=== PATIENT | female | born 1955 | race Caucasian/White ===

== ENCOUNTER → 2021-06-02 14:40 | Outpatient (BNVA) | payer MEDICARE, SELFPAY | PROVIDERS: PCP Internal Medicine; Visit Provider Internal Medicine Cardiovascular Disease | DX: R07.89 Other chest pain (principal) | CPT/HCPCS: 93005; 99202 ==

== ENCOUNTER → 2021-06-04 07:50 | Outpatient (REF) | payer MEDICARE, SELFPAY ==
--- NOTE | 2021-06-04 08:02 | CA_ITS ---
Acquisition Time: 2021-06-04 07:59:06 Total Exercise Time: 00:09:40 Test Indications: Chest Pain Medications: ATORVASTATIN Protocol: MADHAVI Max HR: 153 BPM 98% of Pred: 155 BPM Max BP: 190/080 mmHG Max Work Load: 11.2 METS Exercise stress test with exercise 9 min 40 sec of Madhavi protocol, without anginal symptoms, without arrythmia, with normotensive response to exercise, with EKG changes meeting criteria for ischemia during exercise, peak then improves quickly in recovery. Test reviewed with Dr Bond. Will order a stess echocardiogram for further evaluation. Referred By: Gilmar Clements Overread By: JOSE JUAN LANDON
== END ==
LOC: HO.CARD 07:50
PROVIDERS: PCP Internal Medicine; Visit Provider Internal Medicine Cardiovascular Disease
DX: R94.39 Abnormal result of other cardiovascular function study (principal); R07.89 Other chest pain; E78.5 Hyperlipidemia, unspecified
CPT/HCPCS: 93017

== ENCOUNTER → 2021-06-23 10:42 | Outpatient (REF) | payer MEDICARE, SELFPAY ==
--- NOTE | 2021-06-23 10:46 | CA_ITS ---
Acquisition Time: 2021-06-23 11:00:22 Total Exercise Time: 00:09:40 Test Indications: CAROTID DISEASE Medications: SEE CHART Protocol: MADHAVI Max HR: 193 BPM 124% of Pred: 155 BPM Max BP: 156/080 mmHG Max Work Load: 11.2 METS Exercise stress test with exercise 9 min 40 sec of Madhavi protocol, without anginal symptoms, without arrythmia, with normotensive response to exercise, with EKG changes meeting criteria for ischemia: hortizontal to upsloping ST depression inferiorly and V4-V6 with ST elevation aVR which gradually normalizes in recovery. Echo images obtained by Trendient at rest and immediately post peak exercise. Definity contrast used. Test reviewed with Dr Bond. Referred By: Annalee Brush Overread By: ANNALEE BRUSH
== END ==
LOC: HO.CARD 10:42
PROVIDERS: PCP Internal Medicine; Visit Provider Nurse Practitioner Family
DX: R07.89 Other chest pain (principal); R94.39 Abnormal result of other cardiovascular function study
CPT/HCPCS: 93350; Q9957

== ENCOUNTER 2021-06-27 08:16 | Outpatient (REF) | payer MEDICARE, SELFPAY ==
[2021-06-27 09:43] LABS: C Reactive Protein 0.04 mg/dL (< or = 0.50); Cholesterol 183 mg/dL; HDL Cholesterol 57 mg/dL; LDL Cholesterol Calculated 111 mg/dl; Triglycerides 77 mg/dL
== END 2021-06-27 08:17 | disposition home or self-care (01) ==
LOC: HO.LAB 08:16
PROVIDERS: PCP Internal Medicine; Visit Provider Nurse Practitioner Family
DX: E78.5 Hyperlipidemia, unspecified (principal); R94.39 Abnormal result of other cardiovascular function study
CPT/HCPCS: 36415; 80061; 86140

== ENCOUNTER → 2021-07-08 12:47 | Outpatient (BNVA) | payer MEDICARE, SELFPAY | PROVIDERS: PCP Internal Medicine; Visit Provider Internal Medicine Cardiovascular Disease | DX: I25.10 Atherosclerotic heart disease of native coronary artery without angina pectoris (principal); R07.89 Other chest pain | CPT/HCPCS: 99212 ==

== ENCOUNTER 2021-08-11 12:01 | Day surgery (SDC) | payer MEDICARE, SELFPAY ==
[2021-08-05 14:13] VITALS: BMI 24.7
--- NOTE | 2021-08-07 15:08 | P.CONAN_ITS ---
Documented by User: Gabby Valenzuela NP 08/07/21 15:09 HPI - Anesthesia Eval Consult details Narrative: 65yo F for Upper Endoscopy with Balloon Dilitation Recent cardiac w/u for atypical CP, reassuring testing and cardiac suggests GI w/u FORMERLY [facility], [facility] Active Problems Active Problems: All Active Problems (Updated 08/05/21 @ 14:[address] Slaughter RN) Atypical chest pain (Acute) Hyperlipidemia (Acute) CAD (coronary artery disease) (Acute) Past Medical History Medical History (Updated 08/05/21 @ 14:[address]aughter RN) Abnormal stress ECG with treadmill CAD (coronary artery disease) Elevated cholesterol Family History Family History Father No problems noted. Mother Stroke Brother Carotid stenosis Surgical History Surgical History (Updated 08/05/21 @ 14:[address]aughter RN) H/O colonoscopy Social History Social History Patient Tobacco Use Status: Former Tobacco user Tobacco use type: Cigarette Advance Directives: No Advance Directives Information Provided: Yes Advance Directives on File: No Meds Allergies Allergy/AdvReac Type Severity Reaction Status Date / Time No Known Allergies Allergy Verified 06/02/21 14:52 Home Medications Medication Instructions Recorded Confirmed Last Taken Type cholecalciferol (vitamin D3) 25 25 mcg PO DAILY 06/02/21 08/05/21 Unknown History mcg (1,000 unit) capsule zinc 50 mg tablet 50 mg PO DAILY 06/02/21 08/05/21 Unknown History Exam Exam Date and Time: August 07, 2021 1508 Height,Weight and Vital Signs: Height 5 ft 8 in Weight 73.8 kg Narrative Narrative: Stress Echo 06/2021 Protocol: PACHECO ? Max HR: 193 BPM? 124% of? Pred: 155 BPM Max BP: 156/080 mmHG Max Work Load: 11.2 METS ? Exercise stress test with exercise 9 min 40 sec of Pacheco protocol, without ?anginal symptoms, without arrythmia, with normotensive response to exercise, ?with EKG changes meeting criteria for ischemia: hortizontal to upsloping ST ?depression inferiorly and V4-V6 with ST elevation aVR which gradually ?normalizes in recovery. Echo images obtained by tech at rest and immediately ?post peak exercise. Definity contrast used. Test reviewed with Dr Bond. Exercise stress echocardiogram was reviewed. At rest, there is normal LVEF and wall motion. With peak exercise, there is ? appropriate augmentation of wall thickening and contractility. There is normal decrease in end-systolic volumes. Overall,? normal study.? EKG changes could be non-specific.? Assessment and Plan Assessment Anesthesia Assessment: Chart Reviewed Documented by User: Nicole Coelho MD 08/11/21 13:54 [facility] Past Medical History Medical History (Updated 08/05/21 @ 14:[address] RN) Abnormal stress ECG with treadmill CAD (coronary artery disease) Elevated cholesterol Family History Family History Father No problems noted. Mother Stroke Brother Carotid stenosis Family history of problems with anesthesia: No Surgical History Surgical History (Updated 08/05/21 @ 14:[address] RN) H/O colonoscopy History of Problems with Anesthesia: No Social History Social History Patient Tobacco Use Status: Former Tobacco user Tobacco use type: Cigarette Advance Directives: No Advance Directives Information Provided: Yes Advance Directives on File: No Meds Allergies Allergy/AdvReac Type Severity Reaction Status Date / Time No Known Allergies Allergy Verified 06/02/21 14:52 Home Medications Medication Instructions Recorded Confirmed Last Taken Type cholecalciferol (vitamin D3) 25 25 mcg PO DAILY 06/02/21 08/05/21 Unknown History mcg (1,000 unit) capsule zinc 50 mg tablet 50 mg PO DAILY 06/02/21 08/05/21 Unknown History Exam Airway Mallampati Class: II TM Dist: >3cm Neck ROM: Full Assessment and Plan Assessment Anesthesia Assessment: Anesthesia Plan Discussed Final Anesthetic Review Family History of Problems with Anesthesia: No History of Problems with Anesthesia: No NPO: Yes ASA Class: II Final Preanesthetic Review: No Changes in Pt Med Stat, Meds/Allgs Chart Reviewed, Consent Obtained/Reviewed and Anes Risks/Benef Reviewed Patient Risk: Intermediate Procedure Risk: Low Anesthetic Plan Anesthetic Plan: MAC: Disposition: Standard PACU
[2021-08-11 13:15] VITALS: BP 143/69; PULSE 48; RESP 18; TEMP 37.3; O2SAT 100
[2021-08-11] MEDS: Lactated Ringers 1,000 ML 100 ML IVCONT (13:27)
[2021-08-11 15:46] VITALS: BP 114/70; PULSE 68; RESP 14; TEMP 36.6; O2SAT 97
--- NOTE | 2021-08-11 15:48 | PM.OP ---
Brief Operative Note Date of Service: 08/11/21 Pre-op diagnosis: Dysphagia Post-op diagnosis: other (R/O EOE, Hiatal hernia) Procedure: EGD with biopsies Surgeon: Dieudonne Méndez Anesthesia: MAC Was an Mold Maker Plastic Molds used for this Procedure?: No Estimated blood loss (mL): 2.0 Pathology: other (A. EG Junction at 36cm B. Esophagus at 25cm) Condition: stable Disposition: PACU
[2021-08-11 16:01] VITALS: BP 130/77; PULSE 57; RESP 16; TEMP 36.6; O2SAT 99
--- NOTE | 2021-08-12 02:12 | OP_ITS ---
SURGEON: Dieudonne Méndez MD INDICATIONS: The patient presents for evaluation of dysphagia and chest discomfort. Full consent has been obtained from her for this, including risks of bleeding and perforation. PREOPERATIVE DIAGNOSIS: POSTOPERATIVE DIAGNOSIS: PROCEDURE PERFORMED: Esophagogastroduodenoscopy with biopsies. ESTIMATED BLOOD LOSS: COMPLICATIONS: ANESTHESIA: Medication used, monitored anesthesia care. ASSISTANTS: SPECIMENS: PREOPERATIVE DIAGNOSES: Dysphagia and chest discomfort. POSTOPERATIVE DIAGNOSES: Dysphagia and chest discomfort, hiatal hernia, rule out eosinophilic esophagitis, rule out Devries esophagus. DESCRIPTION OF PROCEDURE: The patient was placed in the left lateral decubitus position the Olympus video gastroscope was passed in the posterior oropharynx and upper esophagus under direct vision. The scope was passed slowly into the distal esophagus. The gastroesophageal junction appeared at 36 cm. There was some slight irregularity consistent with possible Devries mucosa, but there was no evidence of any esophagitis. There was no stricture, nor mass. The scope entered into the stomach. There was a small hiatal hernia with the diaphragmatic indentation seen at approximately 38 cm. The hiatal hernia mucosa appeared normal. The scope was advanced to the pylorus and the duodenum was cannulated in the descending portion. The duodenum including the bulb appeared normal without mass or ulceration. The scope was withdrawn back to the stomach. The gastric antrum and body appeared normal. There was good peristalsis. The scope was retroflexed visualizing the proximal stomach carefully, which appeared normal, without any sign of mass or ulceration. The scope was straightened and withdrawn back to the esophagus. Biopsies were obtained at the EG junction at 36 cm. There was no evidence of any stricture nor ring, and therefore dilation was not performed. The esophageal mucosa otherwise appeared normal. The proximal esophagus appeared normal as well, without any sign of proximal esophageal rings. Biopsies were obtained at 25 cm as well. The scope was withdrawn from the patient. She tolerated the procedure well and was returned to the recovery area in stable condition. IMPRESSION: 1. Hiatal hernia, gastroesophageal reflux, rule out Devries esophagus. 2. Rule out eosinophilic esophagitis. PLAN: The results of the biopsies will be checked. At this point, she reports that she is doing well from a GI standpoint. She is not having much in the way of any heartburn nor dysphagia. As such, I would continue to observe this and await the results of the biopsies. If that happens to be evidence of Devries esophagus without dysplasia, we could then repeat an endoscopy in 3 years for surveillance. If she remains otherwise asymptomatic, then I do not think she needs to be on a PPI. MD HERNANDEZ Vargas/KAMILLE / [phone]
== END 2021-08-11 16:26 | disposition home or self-care (01) ==
PROVIDERS: Visit Provider Internal Medicine
PROC: (CPT 43239; principal; 2021-08-11 13:20)
DX: R13.19 Other dysphagia (principal); R07.89 Other chest pain; K21.9 Gastro-esophageal reflux disease without esophagitis; K44.9 Diaphragmatic hernia without obstruction or gangrene; I25.10 Atherosclerotic heart disease of native coronary artery without angina pectoris; E78.5 Hyperlipidemia, unspecified; Z79.82 Long term (current) use of aspirin; Z79.899 Other long term (current) drug therapy; Z87.891 Personal history of nicotine dependence
CPT/HCPCS: 43239; 88305; J2250

== ENCOUNTER 2021-11-07 07:36 | Outpatient (REF) | payer MEDICARE, SELFPAY ==
[2021-11-07 09:09] LABS: Cholesterol 175 mg/dL; HDL Cholesterol 50 mg/dL; LDL Cholesterol Calculated 105 mg/dl; Triglycerides 100 mg/dL
== END 2021-11-07 07:37 | disposition home or self-care (01) ==
LOC: HO.LAB 07:36
PROVIDERS: PCP Internal Medicine; Visit Provider Internal Medicine Cardiovascular Disease
DX: I25.10 Atherosclerotic heart disease of native coronary artery without angina pectoris (principal)
CPT/HCPCS: 36415; 80061

== ENCOUNTER 2022-02-26 08:14 | Outpatient (REF) | payer MEDICARE, SELFPAY ==
[2022-02-26 09:52] LABS: Cholesterol 132 mg/dL; HDL Cholesterol 55 mg/dL; LDL Cholesterol Calculated 69 mg/dl; Triglycerides 43 mg/dL
== END 2022-02-26 08:15 | disposition home or self-care (01) ==
LOC: HO.LAB 08:14
PROVIDERS: PCP Internal Medicine; Visit Provider Nurse Practitioner Family
DX: E78.5 Hyperlipidemia, unspecified (principal); I25.10 Atherosclerotic heart disease of native coronary artery without angina pectoris
CPT/HCPCS: 36415; 80061

== ENCOUNTER → 2022-07-09 08:17 | Outpatient (BNVA) | payer MEDICARE, SELFPAY | PROVIDERS: PCP Internal Medicine; Referring Provider Internal Medicine; Visit Provider Internal Medicine Cardiovascular Disease | DX: I25.10 Atherosclerotic heart disease of native coronary artery without angina pectoris (principal) | CPT/HCPCS: 93005; 99212 ==

== ENCOUNTER 2022-09-25 09:46 | Outpatient (REF) | payer MEDICARE, SELFPAY ==
--- NOTE | ~2022-09-25 | XR_ITS ---
EXAMINATION: XR SHOULDER, LEFT CLINICAL INFORMATION: Pain COMPARISON: None available. TECHNIQUE: AP external rotation, Grashey, scapular Y, and axillary views of the left shoulder. FINDINGS: Bone alignment is normal. No fracture or dislocation. The glenohumeral joint is normal. There is arthritis at the acromioclavicular joint. Soft tissues are normal. XR/XR shoulder LT min 2V IMPRESSION: Arthritis at the acromioclavicular joint.
== END 2022-09-25 09:47 | disposition home or self-care (01) ==
LOC: HO.XRAY 09:46
PROVIDERS: PCP Internal Medicine; Visit Provider Internal Medicine
DX: M25.512 Pain in left shoulder (principal)
CPT/HCPCS: 73030

== ENCOUNTER 2023-05-21 08:43 | Outpatient (REF) | payer MEDICARE, SELFPAY ==
[2023-05-21 08:53] LABS: MANUAL DIFF FLAG NO
[2023-05-21 09:34] LABS: Basophils Percent Auto 0.4 % (0-2); Eosinophils Percent Auto 0.8 % (0-4); Hematocrit 40.3 % (37.0-47.0); Hemoglobin 13.1 g/dl (12.0-16.0); Lymphocytes Absolute Auto 1.5 X10*3/uL (1.2-4.9); Mean Corpuscular HGB Conc 32.5 g/dl (31.0-35.0); Mean Corpuscular Hemoglobin 30.3 pg (27.0-33.0); Mean Corpuscular Volume 93.3 fL (80.0-98.0); Mean Platelet Volume 9.7 fL (9.4-12.3); Monocytes Absolute Auto 0.6 X10*3/uL (0.1-1.2); Monocytes Percent Auto 12.3 % (2-11); Neutrophils Absolute Auto 2.6 x10*3/uL (2.0-8.3); Neutrophils Percent Auto 54.5 % (45-73); Platelet Count 234 X10*3/uL (160-400); Red Blood Count 4.32 X10*6/uL (4.20-5.50); Red Cell Distribution Width 12.4 % (11.0-16.0); White Blood Count 4.7 X10*3/uL (4.8-10.8)
[2023-05-21 10:16] LABS: Alanine Aminotransferase 22 U/L (0-31); Albumin Level 4.2 g/dL (3.5-5.0); Alkaline Phosphatase 56 U/L (39-117); Anion Gap 12 (12-20); Aspartate Amino Transferase 23 U/L (5-31); Bilirubin Total 0.7 mg/dL (0.0-1.0); Blood Urea Nitrogen 17 mg/dL (9-16); Calcium 9.7 mg/dL (8.4-10.2); Carbon Dioxide 29 mmol/L (22-29); Chloride 108 mmol/L (96-108); Cholesterol 144 mg/dL (<200); Estimated Glomerular Filt Rate > 60; Glucose Fasting 95 mg/dL (60-99); HDL Cholesterol 63 mg/dL (>40); Iron 112 mcg/dL (30-160); LDL Cholesterol Calculated 68 mg/dL (<100); Percent Iron Saturation 35 % (15-50); Potassium 4.1 mmol/L (3.3-5.1); Sodium 145 mmol/L (135-145); Total Iron Binding Capacity 318 mcg/dL (228-428); Total Protein 7.4 g/dL (6.5-8.0); Triglycerides 65 mg/dL (<150); Unsaturated Iron Binding 206 ug/dL
[2023-05-21 10:21] LABS: Ferritin 59 ng/mL (10-250); Thyroid Stimulating Hormone 1.51 uIU/mL (0.32-4.0)
== END 2023-05-21 08:44 | disposition home or self-care (01) ==
LOC: HO.LAB 08:43
PROVIDERS: PCP Internal Medicine; Visit Provider Internal Medicine
DX: E78.00 Pure hypercholesterolemia, unspecified (principal)
CPT/HCPCS: 36415; 80053; 80061; 82306; 82728; 83540; 84443; 85025

== ENCOUNTER 2023-07-15 08:29 | Outpatient (AMB) | payer MEDICARE, SELFPAY ==
--- NOTE | 2023-07-15 08:31 | A.OFFVIS_ITS ---
Intake Vital Signs 07/15/23 08:32 Height 5 ft 8 in Weight 169 lb 12.095 oz BMI 25.8 BP 130/78 Blood Pressure Location Lt brachial Position Sitting Intake Visit Reasons: 1 yr f/up Intake Note: 1 year follow up Allergies No Known Allergies Allergy (Verified 07/09/22 08:30) Medication List - Last Reconciled 07/15/23 by Gilmar Clements MD aspirin (Children's Aspirin) 81 mg PO DAILY atorvastatin 40 mg PO DAILY cholecalciferol (vitamin D3) 25 mcg PO DAILY ezetimibe 10 mg PO DAILY zinc 50 mg PO DAILY HPI HPI Comments History of Present Illness Details Mer comes for follow-up. She has no new cardiac symptoms. She is still hiking up to 6 miles and has no issues. Continues to remain very active. Denies exertional chest pain or shortness of breath. Intermittently gets hemicranial headaches which are not severe. She has no diagnosis about the same. She also gets left neck muscle spasm although not with exertion. Takes all her medications. Last LDL at 67 mg/dL. No prolonged palpitation irregular heartbeat. [facility] Medical History Elevated cholesterol CAD (coronary artery disease) Abnormal stress ECG with treadmill Surgical History H/O colonoscopy Family History Father No problems noted. Mother Stroke Brother Carotid stenosis Social History Alcohol intake: current Alcohol intake frequency: a few times a week Patient Tobacco Use Status: Former Tobacco user Quit Date: 1984 Years Smoked: 8 +/- Review of Systems Const Denies chills, Denies fatigue, Denies fever(s), Denies frequent falls, Denies weakness, Denies weight gain and Denies weight loss ENT Denies dizziness Card Denies chest pain, Denies chest pain with activity, Denies syncope, Denies rapid heart rate, Denies pedal edema, Denies edema, Denies leg edema, Denies lightheadedness, Denies palpitations, Denies dyspnea, Denies dyspnea on exertion, Denies orthopnea and Denies other (loss of consciousness) Resp Denies cough, Denies dyspnea and Denies dyspnea on exertion GI Denies hematochezia and Denies change in stool character Musc Denies abnormal gait, Denies muscle cramps, Denies muscle weakness, Denies numbness, Denies radiating pain into limb and Denies tingling Neuro Denies Abnormal speech present, Denies abnormal gait, Denies dizziness, Denies syncope, Denies frequent falls, Denies numbness, Denies tingling and Denies weakness Endo Denies fatigue and Denies palpitations Physical Exam Vital Signs: Last Vital Signs BP 130/78 07/15/23 08:32 BMI result Body Mass Index 25.8 Const General: cooperative, comfortable, no acute distress, well developed, alert, awake, Physically active and well groomed Nutritional Appearance: average body habitus Orientation/consciousness: patient oriented x3 Limitations: no limitations Neck Neck: Yes trachea midline, Yes supple and Yes no JVD Carotids: no bruits Chest Chest palpation & inspection: normal inspection of the chest Resp Effort & Inspection: normal respiratory effort Auscultation: clear to auscultation bilaterally Cardio Jugular venous distension: no JVD Palpation: normal PMI Rate: regular rate Rhythm: regular rhythm Heart sounds: S1 normal heart sound present, S2 normal heart sound present, no click, no gallops and no murmurs GI Auscultation: normal bowel sounds Skin General skin exam: no rashes or lesions noted Neuro General: patient oriented x3 and no focal motor deficits Speech: No Abnormal speech present Extrem General: Yes no clubbing, cyanosis or edema Office Procedures EKG Details: EKG shows sinus bradycardia with low-voltage QRS with nonspecific ST changes otherwise normal EKG [id number], Complete Assessment & Plan Assessment & Plan (1) CAD (coronary artery disease): Comment: High calcium score, predominantly all in LAD territory Code(s): I25.10 - Atherosclerotic heart disease of nez perce coronary artery without angina pectoris Plan: Coronary artery disease with no concerning symptoms at high level of activity. Continue aggressive medical therapy. Agree with low-dose aspirin therapy. Continue high-intensity statin therapy with ezetimibe with well optimized LDL. Advised to call me with any exertional symptoms at mount need further workup. Will follow with exercise myocardial perfusion imaging next year to assess for asymptomatic myocardial ischemia. She understands and agrees. Will follow up in the clinic in 1 year's time, sooner p.r.n.. Thank you for allowing me to partake in the care Coding Level of Care Code Est Pt Level 3 (31838) Diagnoses CAD (coronary artery disease) I25.10 CPT Codes EKG - CPT: 00018-[id number], Complete ([id number])
[2023-07-15 08:32] VITALS: BP 130/78; BMI 25.8
== END 2023-07-15 09:24 | disposition home or self-care (01) ==
PROVIDERS: Visit Provider Internal Medicine Cardiovascular Disease
DX: I25.10 Atherosclerotic heart disease of native coronary artery without angina pectoris (principal)
CPT/HCPCS: 93010; 99213

== ENCOUNTER → 2023-07-15 08:29 | Outpatient (BNVA) | payer MEDICARE, SELFPAY | PROVIDERS: Visit Provider Internal Medicine Cardiovascular Disease | DX: I25.10 Atherosclerotic heart disease of native coronary artery without angina pectoris (principal) | CPT/HCPCS: 93005; 99212 ==

== ENCOUNTER 2023-12-06 06:21 | Day surgery (SDC) | payer MEDICARE, SELFPAY ==
[2023-12-02 14:16] VITALS: BMI 24.2
[2023-12-06 06:46] VITALS: BMI 23.6
[2023-12-06 06:53] VITALS: BP 127/70; PULSE 57; RESP 16; TEMP 36.4; O2SAT 96
[2023-12-06] MEDS: Lactated Ringers 1,000 ML 50 ML IVCONT (07:07)
--- NOTE | 2023-12-06 07:16 | HO.ANESPROP2 ---
[facility] Active Problems Active Problems: All Active Problems Hyperlipidemia (Acute) Atypical chest pain (Acute) CAD (coronary artery disease) (Acute) Past Medical History Medical History Urinary incontinence Elevated cholesterol CAD (coronary artery disease) Abnormal stress ECG with treadmill Family History Family History Father No problems noted. Mother Stroke Brother Carotid stenosis Family history of problems with anesthesia: No Surgical History Surgical History History of esophagogastroduodenoscopy (EGD) H/O colonoscopy History of Problems with Anesthesia: No Social History Social History Alcohol intake: current Alcohol intake frequency: a few times a week Patient Tobacco Use Status: Former Tobacco user Years Smoked: 8 +/- Use of substances other than those prescribed or required for medical reasons: Yes Substance Use Type Other:: marijuana gummie occasionally Are you DNR?: No Advance Directives: No Advance Directives Information Provided: Yes Meds Allergies Allergy/AdvReac Type Severity Reaction Status Date / Time No Known Allergies Allergy Verified 07/09/22 08:30 Active Medications: Current Medications Lactated Ringer's (Lr) 1,000 mls @ 50 mls/hr IVCONT .Q20H JASWINDER Last Admin: 12/06/23 07:07 Dose: 50 mls/hr Sodium Biphosphate/Sodium Phosphate (Sodium Phosphate,Chester-Dibasic 133 Ml Enema) 133 ml CA ONCE PRN PRN Reason: Poor Colonoscopy Prep Results Home Medications ?Medication ?Instructions ?Recorded ?Confirmed ?Last Taken ?Type cholecalciferol (vitamin D3) 25 25 mcg PO DAILY 06/02/21 12/02/23 Unknown History mcg (1,000 unit) capsule zinc 50 mg tablet 50 mg PO DAILY 06/02/21 12/02/23 Unknown History aspirin 81 mg chewable tablet 81 mg PO DAILY 07/15/23 12/02/23 Unknown History (Children's Aspirin) simvastatin 40 mg tablet 40 mg PO BEDTIME 12/02/23 12/02/23 Unknown History Exam Height,Weight and Vital Signs: Height 5 ft 8.75 in Weight 71.838 kg Last Vital Signs Temp 97.6 F 12/06/23 06:53 Pulse 57 12/06/23 06:53 Resp 16 12/06/23 06:53 BP 127/70 12/06/23 06:53 Pulse Ox 96 12/06/23 06:53 O2 Del Method Room Air 12/06/23 06:53 Airway Mallampati Class: III TM Dist: >3cm Neck ROM: Full Loose/Missing/Broken Teeth: No Heart: RRR Lungs: CTA Assessment and Plan Assessment Anesthesia Assessment: Anesthesia Plan Discussed and Chart Reviewed Final Anesthetic Review Family History of Problems with Anesthesia: No History of Problems with Anesthesia: No NPO: Yes ASA Class: III Final Preanesthetic Review: Meds/Allgs Chart Reviewed, Consent Obtained/Reviewed and Anes Risks/Benef Reviewed Patient Risk: Intermediate Procedure Risk: Low Anesthetic Plan Anesthetic Plan: MAC: Disposition: Standard PACU
--- NOTE | 2023-12-06 07:36 | PC.NURSE ---
Dr Méndez at bedside, 24hr update documented on paper.
[2023-12-06 08:25] VITALS: BP 134/76; PULSE 57; RESP 18; TEMP 35.9; O2SAT 100
--- NOTE | 2023-12-06 08:29 | PM.OP ---
Brief Operative Note Date of Service: 12/06/23 Pre-op diagnosis: Screening Post-op diagnosis: other (Diverticulosis) Procedure: Colonoscopy to the cecum Surgeon: Dieudonne Méndez MD Anesthesia: MAC Was an General Practitioner used for this Procedure?: No Estimated blood loss (mL): 0 Pathology: none sent Condition: stable Disposition: PACU
[2023-12-06 08:49] VITALS: BP 110/77; PULSE 57; RESP 18; TEMP 36.2; O2SAT 100
--- NOTE | 2023-12-06 10:48 | OP_ITS ---
DATE OF SERVICE: 12/06/2023 SURGEON: Dieudonne Méndez MD INDICATIONS: The patient presents for evaluation of colorectal cancer screening and personal history of tubular adenoma of the colon. Full consent has been obtained from her for this, including risks of bleeding and perforation. PREOPERATIVE DIAGNOSIS: POSTOPERATIVE DIAGNOSIS: PROCEDURE PERFORMED: Colonoscopy to cecum. ESTIMATED BLOOD LOSS: COMPLICATIONS: ANESTHESIA: Medication used, monitored anesthesia care. ASSISTANTS: SPECIMENS: PREOPERATIVE DIAGNOSES: Colorectal cancer screening and personal history of tubular adenoma of the colon. POSTOPERATIVE DIAGNOSES: Colorectal cancer screening and personal history of tubular adenoma of the colon, diverticulosis, internal hemorrhoids. DESCRIPTION OF PROCEDURE: The patient was placed in left lateral decubitus position. The digital rectal exam revealed no abnormalities. The Olympus video pediatric colonoscope was entered into the rectum and advanced easily to the cecum. Once in the cecum, I did identify normal-appearing cecal pouch with appendiceal orifice and a normal-appearing ileocecal valve. There was transillumination of light deep in the right lower quadrant. The entire cecum and ileocecal valve appeared normal. The scope was then slowly withdrawn assessing all mucosal surfaces carefully. Preparation was excellent. I did not visualize any sign of polyps, colitis, nor angiodysplasia. There was a mild amount of sigmoid diverticulosis. In the rectum, scope was retroflexed visualizing some small internal hemorrhoids, but no other pathology. The rectal mucosa appeared normal. Scope was straightened and withdrawn the patient. She tolerated the procedure well and was returned to the recovery area in stable condition. IMPRESSION: 1. Diverticulosis. 2. Internal hemorrhoids. PLAN: I would recommend a repeat colonoscopy in 5 years for further screening. She will otherwise see me on a p.r.n. basis. She was advised to continue her stool softeners to help with her constipation. MD HERNANDEZ Vargas/KAMILLE / [phone]
== END 2023-12-06 09:34 | disposition home or self-care (01) ==
PROVIDERS: PCP Internal Medicine; Visit Provider Internal Medicine
PROC: 0DJD8ZZ Inspection of Lower Intestinal Tract, Via Natural or Artificial Opening Endoscopic (ICD-10-PCS; CPT 45378; principal; 2023-12-06 07:30)
DX: Z12.11 Encounter for screening for malignant neoplasm of colon (principal); Z86.010 Personal history of colon polyps; K57.30 Diverticulosis of large intestine without perforation or abscess without bleeding; K64.8 Other hemorrhoids; E78.5 Hyperlipidemia, unspecified; N39.498 Other specified urinary incontinence; Z79.82 Long term (current) use of aspirin; Z79.899 Other long term (current) drug therapy; Z87.891 Personal history of nicotine dependence
CPT/HCPCS: G0105; J2704

== ENCOUNTER 2024-02-10 08:45 | Outpatient (REF) | payer MEDICARE, SELFPAY ==
[2024-02-10 09:54] LABS: Syphilis Screen Nonreactive (Nonreactive)
[2024-02-10 09:55] LABS: HIV AB/AG Nonreactive (Nonreactive); HIV Num 1 0.05 S/CO (0.00-0.99)
[2024-02-11 09:04] LABS: Lyme Abs Screen <0.90 index
[2024-02-15 11:14] LABS: Anti Nuclear Antibody Pattern Nuclear, Homogeneous; Anti Nuclear Antibody Screen POSITIVE (NEGATIVE)
== END 2024-02-10 08:46 | disposition home or self-care (01) ==
LOC: HO.LAB 08:45
PROVIDERS: PCP Internal Medicine; Visit Provider Psychiatry & Neurology Neurology
DX: G43.009 Migraine without aura, not intractable, without status migrainosus (principal)
CPT/HCPCS: 86038; 86039; 86335; 86617; 86618; 86780; 87389

== ENCOUNTER 2024-03-21 07:45 | Outpatient (REF) | payer MEDICARE, SELFPAY ==
--- NOTE | ~2024-03-21 | MR_ITS ---
EXAMINATION: MR BRAIN WITHOUT CONTRAST CLINICAL INFORMATION: New onset of headache. COMPARISON: None available. TECHNIQUE: MRI of the brain was obtained using routine sequences without contrast. FINDINGS: There is a flow-void signal abnormality in the left cerebellopontine angle cistern/left anterior inferior cerebellar artery region with a phase encoding artifact and deformity of the left ventral ihsan/medulla oblongata junction. No restricted diffusion. No acute intracranial hemorrhage, midline shift, hydrocephalus or herniation. Bilateral multifocal patchy and punctate deep periventricular white matter hyperintense T2 FLAIR signal involving centrum semiovale and crump radiata. Sellar/suprasellar region demonstrated no signal abnormality. Craniocervical junction is intact and normal. 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 Recommend MRA brain versus CT angiogram brain. Small vessel occlusive disease. No acute hemorrhage or acute brain abnormality. Electronically signed by: Boaz Coles MD 03/21/2024 10:34 AM BILL
== END 2024-03-21 07:46 | disposition home or self-care (01) ==
LOC: HO.MRI 07:45
PROVIDERS: PCP Internal Medicine; Visit Provider Psychiatry & Neurology Neurology
DX: G44.52 New daily persistent headache (NDPH) (principal)
CPT/HCPCS: 70551

== ENCOUNTER → 2024-03-21 07:56 | Outpatient (BNV) | payer MEDICARE, SELFPAY | PROVIDERS: PCP Internal Medicine; Visit Provider Radiology Diagnostic Radiology | DX: R51.9 Headache, unspecified (principal) | CPT/HCPCS: 70551 ==

== ENCOUNTER 2024-03-30 12:52 | Outpatient (REF) | payer MEDICARE, SELFPAY ==
--- NOTE | ~2024-03-30 | CT_ITS ---
EXAMINATION: CT ANGIOGRAM BRAIN, HEAD CLINICAL INFORMATION: New onset of headache. Concerning cerebral aneurysm. COMPARISON: Correlated to MRI dated March 21, 2024 suggesting a left cerebellopontine angle cistern/anterior inferior cerebellar artery region aneurysm. TECHNIQUE: Test bolus sequences followed by intravenous administration of 75 mL of Omnipaque 350 intravenous contrast without reported immediate complications. Helical imaging was performed in the axial plane from the skull base to the vertex. Delayed postcontrast imaging of the head was also performed. The data was processed at the nanotechnologist workstation for generation of MIP sequences. Three-dimensional volume rendered reformatted images were also generated at an offline 3-D workstation. The degree of stenosis determined by NASCET criteria. This CT examination was performed using dose optimization techniques as appropriate, variously including the following: *Automated exposure control *Adjustment of mA and/or kV according to patient size (this includes techniques or standardized protocols for targeted exams where dose is matched to indication/reason for exam; i.e. extremities or head) *Use of iterative reconstruction technique DLP: 2447 mGy-cm FINDINGS: Anterior cerebral circulation: ICAs: Normal patency. Calcified plaques in the cavernous/supraclinoid segments. No high degree stenosis. No vascular abnormality. ACAs: Normal patency. Left A1 segment: Hypoplastic. No focal stenosis. No abrupt cut off. Anterior communicant artery is patent. MCA's: Normal patency. No focal stenosis. No abrupt cut off. No vascular abnormality. Bifurcation/trifurcation demonstrated normal patency without vascular irregularity. Ophthalmic arteries are patent without gross vascular irregularity. I do not see enhancement of the posterior communicating arteries. Posterior cerebral circulation: V3/V4 segments, Right vertebral artery is small in caliber and appears to endon the right PICA. Left vertebral artery is dominant. Calcified plaque. Normal patency. There is a 12 mm maximum length lobulated IV contrast enhanced vascular abnormality with a 8 mm neck and a punctate calcification, at the left PICA/AICA origin. Basilar artery has a tortuosity. Normal patency. No focal stenosis. No intimal flap. Superior cerebellar arteries are patent. Basilar artery tip demonstrates no vascular irregularity. dog or horse racing official: Normal patency. Decreased caliber at the right P3 segment. No abrupt cut off. Left CCA demonstrates normal caliber and enhancement pattern. Ancillary findings: No acute intracranial hemorrhage, mass effect midline shift, hydrocephalus or herniation. Multifocal patchy and punctate deep periventricular white matter hypodensities in the supratentorial compartment. Mucosal thickening in the right ethmoid air cells. Tympanic cavities and mastoid cells are aerated. 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 Atherosclerosis disease right AZURE ARCHITECT/P3 segment. Electronically signed by: Boaz Coles MD 03/31/2024 08:19 AM EST
[2024-03-30] MEDS: iohexoL 350 MG/ML 75 ML INFUS..BTL IV (14:54)
[2024-03-31 11:51] LABS: Creatinine POC 0.8 mg/dL (0.5-1.4); GFR POC > 60
== END 2024-03-30 12:53 | disposition home or self-care (01) ==
LOC: HO.CT 12:52
PROVIDERS: PCP Internal Medicine; Visit Provider Psychiatry & Neurology Neurology
DX: R51.9 Headache, unspecified (principal)
CPT/HCPCS: 70496; 82565; Q9967

== ENCOUNTER → 2024-03-30 12:56 | Outpatient (BNV) | payer MEDICARE, SELFPAY | PROVIDERS: PCP Internal Medicine; Visit Provider Radiology Diagnostic Radiology | DX: R51.9 Headache, unspecified (principal) | CPT/HCPCS: 70496 ==

== ENCOUNTER 2024-07-17 10:02 | Outpatient (AMB) | payer MEDICARE, SELFPAY ==
--- NOTE | 2024-07-17 10:03 | MHC.PC.OV ---
Vital Signs 07/17/24 10:06 Height 5 ft 7.25 in Weight 161 lb BMI 25.0 BP 118/54 L Pulse 62 Pulse Source Pulse Oximeter Temp 97.1 F Pulse Oximetry (%) 96 Intake Visit Reasons: Aneurysm Intake Note: no other issues Allergies No Known Allergies Allergy (Verified 07/17/24 10:39) Medication List - Last Reconciled 07/17/24 by Lester Osuna MD atorvastatin 40 mg PO DAILY tgwpxidzks-tnrpsixxplaua-apuo 50-300-40 mg 1 cap PO Q4H PRN cholecalciferol (vitamin D3) 25 mcg PO DAILY ezetimibe 10 mg PO DAILY zinc 50 mg PO DAILY PFSH Medical History Cerebral aneurysm Urinary incontinence Elevated cholesterol CAD (coronary artery disease) Abnormal stress ECG with treadmill Surgical History History of esophagogastroduodenoscopy (EGD) H/O colonoscopy Family History Father No problems noted. Mother Stroke Brother Carotid stenosis Social History Alcohol intake: current Alcohol intake frequency: a few times a week Patient Tobacco Use Status: Former Tobacco user Years Smoked: 8 +/- Physical exam (Primary Care) Vital Signs: Last Vital Signs Temp 97.1 F 07/17/24 10:06 Pulse 62 07/17/24 10:06 BP 118/54 L 07/17/24 10:06 Pulse Ox 96 07/17/24 10:06 BMI result Body Mass Index 25.0 Tobacco/Smoking Status: Tobacco use Status Patient Tobacco Use Status Former Tobacco user 07/17/24 10:09 Tobacco use type 05/03/24 10:01 Coding Level of Care Code New Pt Level 4 (22842) Complex EM visit Add On G2211 Diagnoses Hyperlipidemia E78.5 CAD (coronary artery disease) I25.10 Cerebral aneurysm I67.1 Assessment & Plan Assessment & Plan (1) Hyperlipidemia: Code(s): E78.5 - Hyperlipidemia, unspecified Category: Medical Plan: Blood work ordered. Continue current medications. Will call with the results (2) CAD (coronary artery disease): Comment: High calcium score, predominantly all in LAD territory Code(s): I25.10 - Atherosclerotic heart disease of [place] coronary artery without angina pectoris Category: Medical Plan: Patient sees a receiving operator. (3) Cerebral aneurysm: Code(s): I67.1 - Cerebral aneurysm, nonruptured Category: Medical Plan: Note from the surgeon hi. Pt has an upcoming cerebral angiogram. 12 mm lobulated and 8 mm broad-based neck cerebral aneurysm, left PICA/AICA origin. This was reported in the last CTA. BW and EKG prior. Which has been ordered. Orders: Orders Basic Metabolic Panel Today E78.5 - Hyperlipidemia, unspecified, I25.10 - Atherosclerotic heart disease of [place] coronary artery without angina pectoris, I67.1 - Cerebral aneurysm, nonruptured Complete Blood Count no Diff Today E78.5 - Hyperlipidemia, unspecified, I25.10 - Atherosclerotic heart disease of [place] coronary artery without angina pectoris, I67.1 - Cerebral aneurysm, nonruptured Lipid Panel Today E78.5 - Hyperlipidemia, unspecified, I25.10 - Atherosclerotic heart disease of [place] coronary artery without angina pectoris, I67.1 - Cerebral aneurysm, nonruptured Liver Panel Today E78.5 - Hyperlipidemia, unspecified, I25.10 - Atherosclerotic heart disease of [place] coronary artery without angina pectoris, I67.1 - Cerebral aneurysm, nonruptured Thyroid Stimulating Hormone Today E78.5 - Hyperlipidemia, unspecified, I25.10 - Atherosclerotic heart disease of [place] coronary artery without angina pectoris, I67.1 - Cerebral aneurysm, nonruptured UA and rflx microscopic Today E78.5 - Hyperlipidemia, unspecified, I25.10 - Atherosclerotic heart disease of [place] coronary artery without angina pectoris, I67.1 - Cerebral aneurysm, nonruptured ECG 12 lead EKG Today I25.10 - Atherosclerotic heart disease of [place] coronary artery without angina pectoris
[2024-07-17 10:06] VITALS: BP 118/54; PULSE 62; TEMP 36.2; O2SAT 96; BMI 25.0
--- OUTSIDE RECORDS SUMMARY | 2024-07-17 11:25 | XMS_ITS | Encounter Summary ---
Author Organization [facility] [place] [facility] Address [address] [place] [address] Care Team Providers Care Funeral Limousine Driver Name Role Phone Cristobal Pereira MD Unavailable [phone] Lester Osuna MD Primary Care Provider Shanna vailable Reason for Visit * Reason Comments Consult Headaches Cramping o n the left side of the neck * Neurosurgery (Routine) - Closed Specialty Diagnoses / Procedures Referred By Wiliam t Referred To Contact Surgery, Neurosurgery / Neurosurgery Diagnoses Cerebral aneurysm Cristobal Pereira MD [address] [place] [address] [place] [address] [place] [address] Richmond Adams MD [address] [place] [address] Referral ID Status Reason Start Date Expiration Date V isits Requested Visits Authorized [id number] Closed Consult 06/07/2024 06/08/2025 1 1 Encounter Details Date Type Department Care Team (Late st Contact Info) Description 07/11/2024 1:00 PM EST Consult [facility] [id number] [address] [place] [phone] Richmond Adams MD [address] [place] [id number] Intracranial aneurysm (Primary Dx) Social History Tobacco Use Types Packs/Day Years Used Date Smoking Tobacco: Former Cigarettes 0.2 44.7 S tarted: 10/30/1979 Smokeless Tobacco: Never Tobacco Cessation:Counseling Given: Not Answered Alcohol Use Standard Drinks/Week Comments Yes 2 (1 standard drink = 0.6 oz pur e alcohol) Sex and Gender Information Value Date Recorded Sex Assigned at Female 06/19/2024 10:59 AM EST Gender Identity Female 06/19/2024 10:59 AM EST Sexual Orientation Not on file documented as of this encounter Last Filed Vital Signs Vital Sign Reading Time Taken Comments Blood Pressure 163/74 07/11/2024 12:58 PM EST Pulse 62 07/11/2024 12:58 PM EST Temperature 36.1 ??C (97 ??F) 07/11/2024 12:58 PM EST Respiratory Rate - - Oxygen Saturation 98% 07/11/2024 12:58 PM EST Inhaled Oxygen Concentration - - Weight 72.6 kg (160 lb) 07/11/2024 12:58 PM EST Height 170.2 cm (5' 7 ) 07/11/2024 12:58 PM EST Body Mass Index 25.06 07/11/2024 12:58 PM EST documented in this encounter Progress Notes * Richmond Adams MD - 07/11/2024 1:00 PM EST Assessment & Plan In summary, Ms. Okeefe is a 68-year old female with a large left V4 segment aneurysm, measuring approximately 12mm in maximal diameter. We had a detailed discussion regarding the natural history of unruptured intracranial aneurysms. I explained that aneurysm size and location are the primary determinants of aneurysm rupture risk, Eun also explained that various other factors may contribute to rupture risk, including aneurysm morphology, drug and tobacco use and medical comorbidities (e.g. hypertension). I explained that, based on the ISUIA data, the estimated 5-year risk of this aneurysm rupturing may be as high as 15-20% over the next 5 years, in favor of treatment over ongoing observation. I recommend that we begin with adiagnostic cerebral angiogram in order to better characterize the anatomy of the aneurysm and the as sociated vasculature, in order to guide further discussion regarding management options. The risks, benefits and alternatives to diagnostic cerebral angiogram have been discussed with the patient and her daughter. I explained that the risks include, but are not limited to, contrast or other drug reaction, access site hematoma, vascular injury, stroke, coma, , however I quoted a less than 1% risk of any major complications from a diagnostic cerebral angiogram. I explained that the alternative to diagnostic cerebral angiogram is non-invasive imaging, but I also explained that catheter angiogram is the gold standard for visualizing intracranial vascular anatomy, and is clinically indicated in this situation. The patient and her daughter expressed understanding, asked appropriate questions, and wished to proceed with diagnostic cerebral angiogram. Consent was signed by the patient her daughter and placed in the chart. For the interim, we discussed the importance of strict blood pressure control and avoiding tobacco products to minimize the risk of aneurysm rupture. We also discussed the signs and symptoms of aneurysm rupture, and I emphasized the importance of presenting immediately to the emergency department if any of these signs or symptoms should occur. Thank you for kindly referring this patient to my office for consultation. Please do not hesitate to contact me directly if I may be of any further assistance. Richmond Adams MD Director, Cerebrovascular Neurosurgery [facility] Yodit Calderon PA-c [address] [place] [address] [place] [address] Office Office New patient office visit: 60 minutes spent on date of service, which included review of prior medical records and independent interpretation of imaging studies; history, review of systems, and physical/neurologic examination; communication with other providers, ordering new tests and referrals, and documentation. Chief Complaint Cerebral aneurysm Referral from Dr. Cristobal Pereira History of Present Illness Mer Okeefe is a 68 year old female with history of hyperlipidemia found to have an [id number] left V4 segment aneurysm after undergoing cranial imaging due to persistent headaches. She also reports a 6 month history of left cervical muscle spasm without isolated cervicalgia oir radiculopathy. She denies weakness, speech difficulty and visual changes. She denies a personal history of hypertension, family history of cerebral aneurysms, illicit drug use and sentinel headache. She is a former smoker, quitting in collage. Of note, patient was previously placed on Asprin, 81mg, by her Sales Agent Financial Report Service but has since been advised to discontinue the medication due to excessive bruising. Past Medical History Past Medical History: Diagnosis Date GERD (gastroesophageal reflux disease) Past Surgical History No past surgical history on file. Medications No outpatient medications prior to visit. Allergies Not on File Family History No family history on file. Social History Review of Systems A 14-point review of systems is negative except as detailed in the HPI Physical Exam Vitals: 07/11/24 1258 BP: (!) 163/74 Pulse: 62 Temp: 97 ??F (36.1 ??C) SpO2: 98% Weight: 72.6 kg (160 lb) Height: 1.702 m (5' 7 ) Neurological: GCS: E4 V5 M6 Mental Status: Awake, alert and oriented to person, place, time and circumstance. Speech fluent without aphasia. Memory and cognition appropriate Cranial Nerves: Pupils equal, round and reactive to light. Extraocular movements intact. Visual hernandez intact in all four quadrants to bedside confrontation. Facial movements symmetric at rest and with smiling. Palate rises and falls in the midline. Shoulder shrug 5/5 symmetrically. Tongue midline to protrusion. Motor: Strength 5/5 bilateral upper and lower extremities in all muscle groups. No pronator drift. Sensory: Sensation intact to light touch in all four extremities. Imaging I personally reviewed the MRA brain obtained on 05/04/2024, and I reviewed the radiologist's report. 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 documented in this encounter Plan of Treatment Upcoming Encounters Date Type Department Care Team (Latest Contact Info) Description 08/11/2024 1:00 PM EDT Hospital Encounter [facility] Perioperative Surgical Services [address] [place] [phone] Richmond Adams MD [address] [place] [id number] Intracranial aneurysm 08/11/2024 1:00 PM EDT - 08/11/2024 2:45 PM EDT Surgery [facility] Perioperative Surgical Services [address] [place] [address] [phone] Richmond Adams MD [address] [place] [address] [phone] Diagnostic Cerebral Angiogram documented as of this encounter Visit Diagnoses Diagnosis Intracranial aneurysm- Primary Cerebral aneurysm, nonruptured Intracranial aneurysm Cerebral aneurysm, nonruptured Intracranial aneurysm Cerebral aneurysm, nonruptured documented in this encounter Care Teams Funeral Limousine Driver Relationship Specialty Start Date End Date Lester Osuna MD PCP - General Internal Medicine 07/11/24 Cristoabl Pereira MD [address] [place] [address] [place] [address] Referring Provider Neurology 06/07/24 documented as of this encounter
--- OUTSIDE RECORDS SUMMARY | 2024-07-17 11:25 | XMS_ITS | Encounter Summary ---
Author Organization [facility] Address [address] [place] [address] Care Team Providers Care Canceling And Cutting Control Clerk Name Role Phone Cristobal Pereira MD Unavailable Lester Osuna MD Primary Care Provider Shanna vailable Encounter Details Date Type Department Care Team (Latest Contact Info) Description 07/11/2024 Travel Social History Tobacco Use Types Packs/Day Years Used Date Smoking Tobacco: Former Cigarettes 0.2 44.7 S tarted: 10/30/1979 Smokeless Tobacco: Never Alcohol Use Standard Drinks/Week Comments Yes 2 (1 standard drink = 0.6 oz pur e alcohol) Sex and Gender Information Value Date Recorded Sex Assigned at Female 06/19/2024 10:59 AM EST Gender Identity Female 06/19/2024 10:59 AM EST Sexual Orientation Not on file documented as of this encounter Plan of Treatment Upcoming Encounters Date Type Department Care Team (Latest Contact Info) Description 08/11/2024 1:00 PM EDT Hospital Encounter [facility] Perioperative Surgical Services [address] [place] [address] Richmond Adams MD [address] [address] Intracranial aneurysm 08/11/2024 1:00 PM EDT - 08/11/2024 2:45 PM EDT Surgery [facility] Perioperative Surgical Services [address] [place] [phone] Richmnod Adams MD [address] [place] [address] Diagnostic Cerebral Angiogram documented as of this encounter Visit Diagnoses Not on filedocumented in this encounter Care Teams Canceling And Cutting Control Clerk Relationship Specialty Start Date End Date Lester Osuna MD PCP - General Internal Medicine 07/11/24 Cristobal Pereira MD [address] [place] [address] Dr [place] [facility] [place] [address] Referring Provider Neurology 06/07/24 documented as of this encounter
--- OUTSIDE RECORDS SUMMARY | 2024-07-17 11:25 | XMS_ITS | Patient Health Record ---
Author Organization [facility] Address [address] [place] [address] Care Team Providers Care Field Artillery Targeting Technician Name Role Phone Gabriel (RETIRED) Dieudonne GAO Primary Care Provid er Unavailable Dieudonne Méndez Unavailable [phone] ALLERGIES No Known Allergies REASON FOR REFERRAL No Information MEDICATIONS Medication SIG (Take, Route, Fr equency, Duration) Notes Start Date End Date Status Aspirin 81 81 MG 1 tablet Orally Once a day Active Ezetimibe 10 MG TAKE 1 TABLET BY DIANN TH DAILY Oral for 90 Active Vitamin D Active Zinc Active Simvastatin 40 MG 1 tablet in the even ing Orally Once a day Active IMMUNIZATIONS Vaccine Route Administration Date Status Comme nts Influenza Unknown 01/15/2021 Administered Influenza Unknown 03/09/2023 Administered Influenza Unknown 04/19/2018 Refused SOCIAL HISTORY Tobacco Use: Social History Observation Description Date Details (start date - stop date) Former Smoker NA - NA Sex Assigned At : Social History Observation Description Sex Assigned At Unknown Tobacco Use/Smoking Question Answer Notes Patient is a former smoker When did you stop smoking? stopped 40 plus years ago How long has it been since you last smoked? > 10 years Alcohol Screen Question Answer Notes Did you have a drink contain ing alcohol in the past year? Yes How often did you have a dri nk containing alcohol in the past year? 2 to 4 times a month (2 points) How many drinks did you have on a typical day when you were drinking in the past year? 1 or 2 drinks (0 point) How often did you have 6 or more drinks on one occasion in the past year? Never (0 point) Points 2 Interpretation Negative PROBLEMS Problem Type ICD Code Onset Dates Problem Status W/U Status Risk SNOMED Code Notes Problem Encounter for screening for malignant neoplasm of colon (Z12.11) Active confirmed 219319968 Problem Personal history of colonic polyps (Z86.010) Active confirmed History of poly p of colon (situation) (257329207) Problem Diverticulosis of large intestine without perforation or abscess without bleeding (K57.30) Active confirmed Diverticul ar disease of colon (245962263) Problem Dysphagia (R13.10) Active confirmed Dys phagia (67880633) Problem Chest discomfort (R07.89) Active confirmed 544065910 Problem Preprocedural examination (Z01.818) Active confirmed 088061973727356 Problem Hx of adenomatous colonic polyps (Z86.010) Active confirmed 419437827 Problem Gastroesophageal reflux (K21.9) Active confirmed Esophageal re flux finding (871237444) Problem Chronic constipation (K59.09) Active confirmed Chronic constipation (353843511) Problem Esophageal dysphagia (R13.19) Active confirmed 53727288 VITAL SIGNS Temperature 96.9 degrees Fahrenheit 08/11/2023 Blood pressure diastolic 00 mm Hg 08/11/2023 Height 68.75 in 08/11/2023 Blood pressure systolic 000 mm Hg 08/11/2023 Weight 163 lb 4 oz lbs 08/11/2023 BMI 24.28 kg/m2 08/11/2023 Encounters Encounter Location Date Provider Diagnosis [facility] Outpatient [address] [place], [place] [phone] 12/06/2023 Dieudonne Méndez Colon cancer screeni ng Z12.11 ; Personal history of colonic polyps Z86.010 ; Diverticulosis of large intestine without perforation or abscess without bleeding K57.30 and Other hemorrhoids K64.8 [facility] [address] [place] [address] 08/11/2023 Dieudonne Méndez Hx of adenomatous colonic polyps Z86.010 ; Esophageal dysphagia R13.19 ; Encounter for screening for malignant neoplasm of colon Z12.11 ; Preprocedural examination Z01.818 and Chronic constipation K59.09 ASSESSMENTS Encounter Date Diagnosis Assessment Notes Treatment Notes Treatment Clinical Notes 12/06/2023 Colon cancer screening (ICD-10 - Z12.11) 12/06/2023 Personal history of colonic polyps (ICD-10 - Z86.010) 08/11/2023 Hx of adenomatous colonic polyps (ICD-10 - Z86.010) 08/11/2023 Esophageal dysphagia (ICD-10 - R13.19) 12/06/2023 Diverticulosis of large intestine without perforation or abscess without bleeding (ICD-10 - K57.30) 08/11/2023 Encounter for screening for malignant neoplasm of colon (ICD-10 - Z12.11) Stop aspirin for 1 week before the colonoscopy 12/06/2023 Other hemorrhoids (ICD-10 - K64.8) 08/11/2023 Preprocedural examination (ICD-10 - Z01.818) 08/11/2023 Chronic constipation (ICD-10 - K59.09) For the constipation: Start a daily stool softener like Miralax or Colace. You can also use 2 Metamucil fiber pills with a large glass of water PLAN OF TREATMENT Future Test Test Name Order Date COLONOSCOPY 04/11/2013 COLONOSCOPY 04/19/2018 UPPER GI ENDOSCOPY [place] DILATION OF ESOPH 07/29/2021 COLONOSCOPY 08/11/2023 Insurance Providers Payer Name Payer Address Payer Phone Subscriber Number Group Number Insured Name Patient Relationship to Insured Coverage Start Date Coverage End Date MEDICARE OF [place] [address] [place] [address] [phone] [id number] MICHAEL SALINAS Self - patient is the insured [employer] ATT[employer] CLAIMS [address] [place] [address] [id number] MICHAEL SALINAS Self - patient is the insured MEDICAL (GENERAL) HISTORY Medical History History ICD Code Screening colonoscopies 11-08 -2007 and 06/2013 with removal of a single small tubular adenoma, as well as the finding of some mild sigmoid diverticulosis and small internal hemorrhoids Hyperlipidemia Denies TN,DM,CVA,Lung disease,renal dise ase Urinary incontinence-mild Colonoscopy 07/2018 with a hyperplastic p olyp Neg. ETT with Dr. Clements EGD 07/2021-small HH, no esop hagitis, no Devries's, no Eosinophilic esophagitis Surgical History Surgery Date(Month/Year)
--- OUTSIDE RECORDS SUMMARY | 2024-07-17 11:25 | XMS_ITS | Clinical Summary ---
Author Organization [facility] Address [address] [place] [address] Care Team Providers Care Steel Welder Name Role Phone Cristobal Pereira MD Unavailable Lester Osuna MD Primary Care Provider Shanna vailable Call, Tatyana Matias RN Unavailable [phone] Allergies No known active allergies Medications Medication Sig Dispensed Refills Start Date End Date Status atorvastatin (LIPITOR) 40 MG tablet Take 1 tablet (40 mg total) by mouth every evening. Active butalbital-acetaminop hen-caffeine (FioriCET, ESGIC) 50-325-40 mg tablet TAKE 1 TO 2 TABLETS BY MOUTH EVERY DAY NEEDED FOR HEADACHE 05/22/2024 Active Vitamin D, Cholecalciferol, 25 MCG (1000 UT) Cap Take 1 capsule by mouth daily. Active ezetimibe (ZeTIA) 10 MG tablet Take 1 tablet (10 mg total) by mouth. Active acetaminophen (TYLENOL) 500 MG tablet Take 1 tablet (500 mg total) by mouth 4 times daily (every 6 hours) as needed for headaches. Active Multiple Vitamins-Minerals (ZINC PO) Take by mouth. Active Encounters Date Type Department Care Team Description 07/11/2024 1:00 PM EST Consult [facility] [id number] [address] [place] [address] [place] [address] Richmond Adams MD Intracranial aneurysm (Primary Dx) 07/11/2024 Scanned Document [facility] NEUROSURGERY SCAN Neurosurgery, Scan 07/11/2024 Travel 06/15/2024 9:55 AM EST Ancillary Procedure [facility] Radiology [address] [place] [address] Provider, File Room 06/07/2024 Transcribe Orders [facility] NEUROSRG [id number] [address] [facility] [facility] [address] [place] [address] Cristobal Pereira MD Cerebral aneurysm (Primary Dx) from Last 3 Months Family History Medical History Relation Name Comments Dementia Father Alonso Stafford in 2019 at age of 92 Stroke Mother Paula Stafford High blood pressure, in 2020, 89 yrs, from a stroke. (Her father of a heart attack) Mom had a TIA I believe when she was in her 60? s. Relation Name Status Comments Father Alonso tSafford Mother Paula Stafford Social History Tobacco Use Types Packs/Day Years [...] AM EST Sexual Orientation Not on file Last Filed Vital Signs Vital Sign Reading [...] Mass Index 25.06 07/11/2024 12:58 PM EST Plan of Treatment Upcoming Encounters Date Type Department Care Team (Latest Contact Info) Description 08/11/2024 1:00 PM EDT Hospital Encounter [facility] Perioperative Surgical Services [address] [place] [address] Richmond Adams MD [address] [address] Intracranial aneurysm 08/11/2024 1:00 PM EDT - 08/11/2024 2:45 PM EDT Surgery [facility] Perioperative Surgical Services [address] [place] [phone] Richmond Adams MD [address] [address] Diagnostic Cerebral Angiogram Health Maintenance Due Date Last Done Comments Hepatitis C Virus Screening 1955 Annual Wellness Visit 12/07/1973 Physical 12/07/1973 DTaP/Tdap/Td Vaccines (1 - Tdap) 12/07/1974 Mammogram 1995 Colonoscopy 12/07/2000 Pneumococcal Vaccines 50+ (1 of 1 - PCV) 12/07/2005 Zoster (Shingles) Vaccine (1 of 2) 12/07/2005 DXA Bone Density (Females,Ages 65 and older) 12/07/2020 Influenza Vaccine 12/16/2023 04/18/2015, 04/11/2013 COVID-19 Vaccine (3 - 2023-2 5 season) 2024 09/04/2020, 08/14/2020 RSV Vaccine 60 years and older and Patients (1 - 1-dose 75+ series) 12/07/2030 Hepatitis B Vaccines Aged Out No long er eligible based on patient's age to complete this topic Procedures Procedure Name Priority Date/Time Associated Diagnosis Comments ENDOVASCULAR PROCEDURE Routine 07/14/2024 12:26 PM EST Intracranial aneurysm MAYRA ARCHIVE FOR REFERENCE ONLY MR Routine 06/15/2024 9:55 AM EST from Last 3 Months Results * MAYRA Archive for reference only MR (06/15/2024 9:55 AM EST) Narrative ALEAH - 06/15/2024 9:51 AM EST This order has been auto-finalized and does not contain a result. File Room Provider IMG DIGITIZE FILMS ALEAH [phone] from Last 3 Months Care Teams Steel Welder Relationship Specialty Start Date End Date Lester Osuna MD PCP - General Internal Medicine 07/11/24 Cristobal Pereira MD [address] [place] [address] [place] [address] Referring Provider Neurology 06/07/24 Call, Tatyana Matias RN [address] [place] [address] Registered Nurse Surgery, Neurosurgery 07/13/24
--- OUTSIDE RECORDS SUMMARY | 2024-07-17 11:25 | XMS_ITS | Encounter Summary ---
Author Organization [facility] Address [address] [place] [address] Care Team Providers Care Colon And Rectal Surgeon Name Role Phone Cristobal Pereira MD Unavailable Lester Osuna MD Primary Care Provider Shanna vailable Call, Tatyana Matias RN Unavailable [phone] Encounter Details Date Type Department Care Team (Late st Contact Info) Description 07/11/2024 Scanned Document [facility] NEUROSURGERY SCAN Neurosurgery, Scan Social History Tobacco Use Types Packs/Day Years [...] Description 08/11/2024 1:00 PM EDT Hospital Encounter [facility] Perioperative Surgical Services [address] [place] [phone] Richmond Adams MD 85 [facility] [address] [place] [address] Intracranial aneurysm 08/11/2024 1:00 PM EDT - 08/11/2024 2:45 PM EDT Surgery [facility] Perioperative Surgical Services [address] [place] [address] Richmond Adams MD [address] [address] Diagnostic Cerebral Angiogram documented as of this encounter Visit Diagnoses Not on filedocumented in this encounter Care Teams Colon And Rectal Surgeon Relationship Specialty Start Date End Date Lester Osuna MD PCP - General Internal Medicine 07/11/24 Cristobal Pereira MD [address] [place] [address] Dr [address] [place] [address], [place] [address] Referring Provider Neurology 06/07/24 Tatyana Casas RN 85 [place] [address] Registered Nurse Surgery, Neurosurgery 07/13/24 documented as of this encounter
--- OUTSIDE RECORDS SUMMARY | 2024-07-17 11:26 | XMS_ITS ---
Author Organization [facility] Address [address] [place] [address] Care Team Providers Care Side Boss Name Role Phone Gabriel (RETIRED) Dieudonne GAO Primary Care Provid er Unavailable Dieudonne Méndez Unavailable [phone] ALLERGIES No Known Allergies REASON FOR VISIT Patient presents today for a colon screening MEDICATIONS Medication SIG (Take, Route, Fr equency, Duration) Notes Start Date End Date Status Aspirin 81 81 MG 1 tablet Orally Once a day Active Ezetimibe 10 MG TAKE 1 TABLET BY DIANN TH DAILY Oral for 90 Active Vitamin D Active Zinc Active Simvastatin 40 MG 1 tablet in the even ing Orally Once a day Active SOCIAL HISTORY Tobacco Use: Social History Observation [...] W/U Status Risk SNOMED Code Notes Problem Chronic constipation (K59.09) Active confirmed Chronic constipation (687659419) VITAL SIGNS Temperature 96.9 degrees Fahrenheit 08/11/19 24 Blood pressure systolic 000 mm Hg 08/11/19 24 Blood pressure diastolic 00 mm Hg 024 Height 68.75 in 08/11/2023 Weight 163 lb 4 oz lbs 08/11/2023 BMI 24.28 kg/m2 08/11/2023 Encounters Encounter Location Date Provider Diagnosis [facility] [address] [place] [address] 08/11/2023 Dieudonne Méndez Hx of adenomatous colonic polyps Z86.010 ; Esophageal dysphagia R13.19 ; Encounter for screening for malignant neoplasm of colon Z12.11 ; Preprocedural examination Z01.818 and Chronic constipation K59.09 ASSESSMENTS Encounter Date Diagnosis Assessment Notes Treatment Notes Treatment Clinical Notes 08/11/2023 Hx of adenomatous colonic polyps (ICD-10 - Z86.010) 08/11/2023 Esophageal dysphagia (ICD-10 - R13.19) 08/11/2023 Encounter for screening for malignant neoplasm of colon (ICD-10 - Z12.11) Stop aspirin for 1 week before the colonoscopy 08/11/2023 Preprocedural examination (ICD-10 - Z01.818) 08/11/2023 Chronic constipation (ICD-10 - K59.09) For the constipation: Start a daily stool softener like Miralax or Colace. You can also use 2 Metamucil fiber pills with a large glass of water PLAN OF TREATMENT Treatment Notes Assessment Notes Encounter for screening for malignant neoplasm of colon Stop aspirin for 1 week before the colonoscopy Chronic constipation For the constipatio n: Start a daily stool softener like Miralax or Colace. You can also use 2 Metamucil fiber pills with a large glass of water Future Test Test Name Order Date COLONOSCOPY 08/11/2023 Next Appt Details Follow Up: prn, Reason: Progress Notes * Examination Category Sub-Category Detail Notes General Examination GENERAL APPEARANCE: pleasant , well nourished, well developed, in no acute distress EYES: sclera non-icteric NECK/THYROID: no cervical lymphade nopathy, neck supple HEART: S1, S2 normal LUNGS: clear to auscultatio n bilaterally ABDOMEN: normal bowel sounds, no guarding or rigidity, no hepatosplenomegaly, no masses palpable, soft, nontender, nondistended. NEUROLOGIC: alert and oriented SKIN: nonjaundiced, no spi az angiomata. EXTREMITIES: no edema ORAL CAVITY: mucosa moist
--- OUTSIDE RECORDS SUMMARY | 2024-07-17 11:26 | XMS_ITS ---
Author Name [facility] Organization Unknown History of Medication Use Medication Directions Dispensed Refills Start Date End Date Stat us acetaminophen (TYLENOL) 500 MG tablet Take 1 tablet (500 mg total) by mouth 4 times daily (every 6 hours) as needed for headaches. active atorvastatin (LIPITOR) 40 MG tablet Take 1 tablet (40 mg total) by mouth every evening. active Multiple Vitamins-Minerals (ZINC PO) Take by mouth. active butalbital-acetaminoph en-caffeine (FioriCET, ESGIC) 50-325-40 mg tablet TAKE 1 TO 2 TABLETS BY MOUTH EVERY DAY NEEDED FOR HEADACHE 05/22/2024 active Vitamin D, Cholecalciferol, 25 MCG (1000 UT) Cap Take 1 capsule by mouth daily. active ezetimibe (ZeTIA) 10 MG tablet Take 1 tablet (10 mg total) by mouth. active Problems Problem Status Onset Date Problem Type Date of Resoluti on Source Intracranial aneurysm [facility]
--- OUTSIDE RECORDS SUMMARY | 2024-07-17 11:26 | XMS_ITS ---
Author Organization [facility] Address [address] [place] [address] Care Team Providers Care Court Advocate Name Role Phone Gabriel (RETIRED) Dieudonne GAO Primary Care Provid er Unavailable MéndezDieudonne Unavailable [phone] REASON FOR VISIT screening,hx polyps PROBLEMS Problem Type ICD Code Onset Dates Problem Status W/U Status Risk SNOMED Code Notes Problem Personal history of colonic polyps (Z86.010) Active confirmed History of polyp of colon (situation) (785689084) Problem Diverticulosis of large intestine without perforation or abscess without bleeding (K57.30) Active confirmed Diverticul ar disease of colon (269728518) Encounters Encounter Location Date Provider Diagnosis [facility] [address] [place] [phone] 12/06/2023 Dieudonne Méndez Colon cancer scree jose raul Z12.11 ; Personal history of colonic polyps Z86.010 ; Diverticulosis of large intestine without perforation or abscess without bleeding K57.30 and Other hemorrhoids K64.8 ASSESSMENTS Encounter Date Diagnosis Assessment Notes Treatment Notes Treatment Clinical Notes 12/06/2023 Colon cancer screening (ICD-10 - Z12.11) 12/06/2023 Personal history of colonic polyps (ICD-10 - Z86.010) 12/06/2023 Diverticulosis of large intestine without perforation or abscess without bleeding (ICD-10 - K57.30) 12/06/2023 Other hemorrhoids (ICD-10 - K64.8) PLAN OF TREATMENT No Information
== END 2024-07-17 10:30 | disposition home or self-care (01) ==
LOC: HO.HMCSH 10:02
PROVIDERS: PCP Internal Medicine; Visit Provider Internal Medicine
DX: E78.5 Hyperlipidemia, unspecified (principal); I25.10 Atherosclerotic heart disease of native coronary artery without angina pectoris; I67.1 Cerebral aneurysm, nonruptured

== ENCOUNTER → 2024-07-17 10:02 | Outpatient (REF) | payer MEDICARE, SELFPAY ==
--- NOTE | 2024-07-17 11:08 | ECG_ITS ---
Test Reason : ASCD W/O ANGINA Blood Pressure : */* mmHG Vent. Rate : 57 BPM Atrial Rate : 57 BPM P-R Int : 188 ms QRS Dur : 86 ms QT Int : 448 ms P-R-T Axes : 67 -12 24 degrees QTcB Int : 436 ms Sinus bradycardia Nonspecific T wave abnormality Abnormal ECG No previous ECGs available Referred By: Lester Osuna Electronically Signed By: LYNSEY HINES MD
--- OUTSIDE RECORDS SUMMARY | 2024-07-17 12:53 | XMS_ITS | Encounter Summary ---
Author Organization [facility] Address [address] [place] [address] Care Team Providers Care Coat Repair Inspector Name Role Phone Cristobal Pereira MD Unavailable [phone] Lester Osuna MD Primary Care Provider Shanna vailable Call, Tatyana Matias RN Unavailable [phone] Encounter Details Date Type Department Care Team (Late st Contact Info) Description 07/11/2024 Scanned Document [facility] NEUROSURGERY SCAN Neurosurgery, Scan Social History Tobacco [...] [facility] Perioperative Surgical Services [address] [place] [phone] Richmond Adams MD 85 [facility] [address] [place] [address] Intracranial aneurysm 08/11/2024 1:00 PM EDT - 08/11/2024 2:45 PM EDT Surgery [facility] Perioperative Surgical Services [address] [place] [address] Richmond Adams MD [address] [address] Diagnostic Cerebral Angiogram documented as of this encounter Visit Diagnoses Not on filedocumented in this encounter Care Teams Coat Repair Inspector Relationship Specialty Start Date End Date Lester Osuna MD PCP - General Internal Medicine 07/11/24 Cristobal Pereira MD [address] [place] [address] Dr [address] [place] [address], [place] [address] Referring Provider Neurology 06/07/24 Tatayna Casas RN [address] [place] [address] Registered Nurse Surgery, Neurosurgery 07/13/24 documented as of this encounter
--- OUTSIDE RECORDS SUMMARY | 2024-07-17 12:53 | XMS_ITS | Encounter Summary ---
Author Organization [facility] Address [address] [place] [address] Care Team Providers Care Earth Science Teacher Name Role Phone Cristobal Pereira MD Unavailable [phone] Lester Osuna MD Primary Care Provider Shanna [...] [facility] Perioperative Surgical Services [address] [place] [address] Richmond Adams MD [address] [address] Intracranial aneurysm 08/11/2024 1:00 PM EDT - 08/11/2024 2:45 PM EDT Surgery [facility] Perioperative Surgical Services [address] [place] [address] Richmond Adams MD [address] [place] [address] Diagnostic Cerebral Angiogram documented as of this encounter Visit Diagnoses Not on filedocumented in this encounter Care Teams Earth Science Teacher Relationship Specialty Start Date End Date Lester Osuna MD PCP - General Internal Medicine 07/11/24 Cristobal Pereira MD [address] [place] [address] Dr Vernon [facility] [place] [address] Referring Provider Neurology 06/07/24 documented as of this encounter
--- OUTSIDE RECORDS SUMMARY | 2024-07-17 12:53 | XMS_ITS | Encounter Summary ---
Author Organization [facility] Address [address] [place] [address] Care Team Providers Care Foot Drill Operator Name Role Phone Cristobal Pereira MD Unavailable [phone] Lester Osuna MD Primary Care Provider Shanna vailable Reason for Visit * Reason Comments Consult Headaches Cramping o n the left side of the neck * Neurosurgery (Routine) - Closed Specialty Diagnoses / Procedures Referred By Wiliam t Referred To Contact Surgery, Neurosurgery / Neurosurgery Diagnoses Cerebral aneurysm Cristobal Pereira MD [address] [place] [address] [place] [address] [place] [address] Richmond Adams MD [address] [place] [address] Referral ID Status Reason Start Date Expiration Date V isits Requested Visits Authorized [id number] Closed Consult 06/07/2024 06/08/2025 1 1 Encounter Details Date Type Department Care Team (Late st Contact Info) Description 07/11/2024 1:00 PM EST Consult [facility] NEUR[facility] [id number] [address] [place] [address] Richmond Adams MD [address] [place] [address] Intracranial aneurysm (Primary Dx) Social History Tobacco [...] assistance. Richmond Adams MD Director, Cerebrovascular Neurosurgery [facility] Yodit Calderon PA-c [address] [place] [address] [place] [address] Office Office New patient office visit: 60 [...] history of hyperlipidemia found to have an [id number] left V4 segment aneurysm after undergoing cranial [...] placed on Asprin, 81mg, by her Sales Program Manager but has since been advised to discontinue [...] Description 08/11/2024 1:00 PM EDT Hospital Encounter [facility] Perioperative Surgical Services [address] [place] [phone] Richmond Adams MD [address] [place] [address] Intracranial aneurysm 08/11/2024 1:00 PM EDT - 08/11/2024 2:45 PM EDT Surgery [facility] Perioperative Surgical Services [address] [place] [phone] Richmond Adams MD [address] [place] [id number] Diagnostic Cerebral Angiogram documented as of this encounter Visit Diagnoses Diagnosis Intracranial aneurysm- Primary Cerebral aneurysm, nonruptured Intracranial aneurysm Cerebral aneurysm, nonruptured Intracranial aneurysm Cerebral aneurysm, nonruptured documented in this encounter Care Teams Foot Drill Operator Relationship Specialty Start Date End Date Lester Osuna MD PCP - General Internal Medicine 07/11/24 Cristobal Pereira MD [address] [place] [address] [place] [address] Referring Provider Neurology 06/07/24 documented as of this encounter
--- OUTSIDE RECORDS SUMMARY | 2024-07-17 12:53 | XMS_ITS | Clinical Summary ---
Author Organization [facility] Address [address] [place] [address] Care Team Providers Care Ticker Maintainer Name Role Phone Cristobal Pereira MD Unavailable Lester Osuna MD Primary Care Provider Shanna vailable Call, Tatyana Matias RN Unavailable [phone] Allergies No known active allergies Medications [...] 07/11/2024 1:00 PM EST Consult [facility] NE[facility] [id number] [address] [place] [address] [place] [address] Richmond Adams MD Intracranial aneurysm (Primary Dx) 07/11/2024 Scanned Document [facility] NEUROSURGERY SCAN Neurosurgery, Scan 07/11/2024 Travel 06/15/2024 9:55 AM EST Ancillary Procedure [facility] Radiology [address] [place] [address] Provider, File Room 06/07/2024 Transcribe Orders [facility] NEUROSRG [id number] 85 [facility] [address] [place] [address] Cristobal Pereira MD Cerebral aneurysm [...] s. Relation Name Status Comments Father Alonso Stafford Mother Paula Stafford Social History Tobacco Use [...] Description 08/11/2024 1:00 PM EDT Hospital Encounter [facility] Perioperative Surgical Services [address] [place] [address] Richmond Adams MD [address] [address] Intracranial aneurysm 08/11/2024 1:00 PM EDT - 08/11/2024 2:45 PM EDT Surgery [facility] Perioperative Surgical Services [address] [place] [phone] Richmond Adams MD [address] [address] Diagnostic Cerebral Angiogram Health Maintenance Due Date [...] File Room Provider IMG DIGITIZE FILMS ALEAH [phone] from Last 3 Months Care Teams Ticker Maintainer Relationship Specialty Start Date End Date Lester Osuna MD PCP - General Internal Medicine 07/11/24 Cristobal Pereira MD [address] [place] [address] [place] [address] Referring Provider Neurology 06/07/24 Call, Tatyana Matias RN [address] [place] [address] Registered Nurse Surgery, Neurosurgery 07/13/24
== END ==
LOC: HO.CARD 10:02
PROVIDERS: PCP Internal Medicine; Visit Provider Internal Medicine
DX: Z01.810 Encounter for preprocedural cardiovascular examination (principal); I25.10 Atherosclerotic heart disease of native coronary artery without angina pectoris; E78.5 Hyperlipidemia, unspecified; I67.1 Cerebral aneurysm, nonruptured
CPT/HCPCS: 93005; 99202; 99212

== ENCOUNTER 2024-07-17 12:13 | Outpatient (AMB) | payer MEDICARE, SELFPAY ==
[2024-07-17 12:30] VITALS: BP 120/76; PULSE 69; BMI 24.8
--- NOTE | 2024-07-17 12:30 | A.OFFVIS_ITS ---
Vital Signs 07/17/24 12:30 Height 5 ft 7.5 in Weight 160 lb 14.999 oz BMI 24.8 BP 120/76 Blood Pressure Location Lt brachial Position Sitting Pulse 69 Intake Visit Reasons: 1 yr after stress test Intake Note: 1 year follow-up had ekg today in cardiology having aaa repair at [facility] 08/11 feeling good Field Service Engineer Required: No Allergies No Known Allergies Allergy (Verified 07/17/24 10:39) Medication List - Last Reconciled 07/17/24 by Gilmar Clements MD aspirin (Adult Aspirin Regimen) 81 mg PO DAILY atorvastatin 40 mg PO DAILY sclltypdgz-acblmagcrurnj-kcjp 50-300-40 mg 1 cap PO Q4H PRN cholecalciferol (vitamin D3) 25 mcg PO DAILY ezetimibe 10 mg PO DAILY zinc 50 mg PO DAILY HPI Comments Details: Izabel comes for follow-up. She was noted to have intracranial aneurysm on MRI, done for headaches. She is undergoing neuro interventional procedure with catheter for the aneurysm with stenting. This is scheduled in near future. She continues to remain active. She has no active chest pain syndrome. She denies any exertional chest pain or shortness of breath. Her aspirin was stopped due to bruising. She is currently on statin and ezetimibe therapy. Repeat lipids are pending [facility] Medical History Cerebral aneurysm Urinary incontinence Elevated cholesterol CAD (coronary artery disease) Abnormal stress ECG with treadmill Surgical History History of esophagogastroduodenoscopy (EGD) H/O colonoscopy Family History Father No problems noted. Mother Stroke Brother Carotid stenosis Social History Alcohol intake: current Alcohol intake frequency: a few times a week Patient Tobacco Use Status: Former Tobacco user Years Smoked: 8 +/- Review of Systems Const Denies chills, Denies fatigue, Denies fever(s), Denies frequent falls, Denies weakness, Denies weight gain and Denies weight loss ENT Denies dizziness Card Denies chest pain, Denies leg edema, Denies lightheadedness, Denies palpitations, Denies dyspnea, Denies dyspnea on exertion, Denies orthopnea and Denies other (loss of consciousness) Resp Denies cough, Denies dyspnea and Denies dyspnea on exertion GI Denies hematochezia and Denies change in stool character Musc Denies abnormal gait, Denies muscle weakness, Denies numbness, Denies radiating pain into limb and Denies tingling Neuro Denies Abnormal speech present, Denies abnormal gait, Denies dizziness, Denies frequent falls, Denies numbness, Denies tingling and Denies weakness Endo Denies fatigue and Denies palpitations Physical Exam Vital Signs: Last Vital Signs Pulse 69 07/17/24 12:30 BP 120/76 07/17/24 12:30 BMI result Body Mass Index 24.8 Const General: cooperative, comfortable, no acute distress, well developed, alert, awake, Physically active and well groomed Nutritional Appearance: average body habitus Orientation/consciousness: patient oriented x3 Limitations: no limitations Neck Neck: Yes trachea midline, Yes supple and Yes no JVD Carotids: no bruits Chest Chest palpation & inspection: normal inspection of the chest Resp Effort & Inspection: normal respiratory effort Auscultation: clear to auscultation bilaterally Cardio Jugular venous distension: no JVD Palpation: normal PMI Rate: regular rate Rhythm: regular rhythm Heart sounds: S1 normal heart sound present, S2 normal heart sound present, no click, no gallops and no murmurs GI Auscultation: normal bowel sounds Skin General skin exam: no rashes or lesions noted Neuro General: patient oriented x3 and no focal motor deficits Speech: No Abnormal speech present Extrem General: Yes no clubbing, cyanosis or edema Assessment & Plan Assessment & Plan (1) CAD (coronary artery disease): Comment: High calcium score, predominantly all in LAD territory Code(s): I25.10 - Atherosclerotic heart disease of [place] coronary artery without angina pectoris Category: Medical Plan: CAD with high calcium score in the LAD territory without any symptoms at current time. He is scheduled to undergo myocardial perfusion imaging in early August, although this will be postponed to mid September. Currently she was not having any active symptoms. Continue low-dose aspirin therapy. Continue dual therapy for lipid modification. Target goal LDL less than 70 mg/dL. Has significant ischemia may need further angiographic evaluation. (2) Preoperative cardiovascular examination: Code(s): Z01.810 - Encounter for preprocedural cardiovascular examination Category: Medical Plan: Preoperative cardiovascular risk stratification for neurointerventional procedure under MAC for intracerebral aneurysm. Says a low risk procedure from cardiac perspective. She is currently not having any active symptoms. She is optimized to undergo this procedure with low risk for perioperative cardiovascular morbidity mortality. Will follow up in the clinic in 1 year's time, sooner p.r.n.. Thank you for allowing me to partake in her care Coding Level of Care Code Est Pt Level 4 (38655) Complex EM visit Add On G2211 Diagnoses CAD (coronary artery disease) I25.10 Preoperative cardiovascular examination Z01.810
--- OUTSIDE RECORDS SUMMARY | 2024-07-17 14:20 | XMS_ITS | Encounter Summary ---
Author Organization [facility] Address [address] [place] [address] Care Team Providers Care Clerical Order Filler Name Role Phone Cristobal Pereira MD Unavailable [phone] Lester Osuna MD Primary Care Provider Shanna vailable Reason for Visit * Reason Comments Consult Headaches Cramping o n the left side of the neck * Neurosurgery (Routine) - Closed Specialty Diagnoses / Procedures Referred By Wiliam t Referred To Contact Surgery, Neurosurgery / Neurosurgery Diagnoses Cerebral aneurysm Cristobal Pereira MD [address] [place] [address] [place] [address] [place] [address] Richmond Adams MD [address] [place] [address] Referral ID Status Reason Start Date Expiration Date V isits Requested Visits Authorized [id number] Closed Consult 06/07/2024 06/08/2025 1 1 Encounter Details Date Type Department Care Team (Late st Contact Info) Description 07/11/2024 1:00 PM EST Consult [facility] [id number] [address] [place] [phone] Richmond Adams MD [address] [place] [address] Intracranial aneurysm (Primary Dx) Social History Tobacco [...] assistance. Richmond Adams MD Director, Cerebrovascular Neurosurgery [facility] Yodit Calderon PA-c [address] [place] [address] [place] [address] Office Office New patient office visit: 60 [...] history of hyperlipidemia found to have an [id number] left V4 segment aneurysm after undergoing cranial [...] previously placed on Asprin, 81mg, by her Lactation Nurse but has since been advised to discontinue [...] Description 08/11/2024 1:00 PM EDT Hospital Encounter [facility] [address] [place] [phone] Richmond Adams MD [address] [place] [address] Intracranial aneurysm 08/11/2024 1:00 PM EDT - 08/11/2024 2:45 PM EDT Surgery [facility] [address] [place] [phone] Richmond Adams MD [address] [place] [phone] Diagnostic Cerebral Angiogram documented as of this encounter Visit Diagnoses Diagnosis Intracranial aneurysm- Primary Cerebral aneurysm, nonruptured Intracranial aneurysm Cerebral aneurysm, nonruptured Intracranial aneurysm Cerebral aneurysm, nonruptured documented in this encounter Care Teams Clerical Order Filler Relationship Specialty Start Date End Date Lester Osuna MD PCP - General Internal Medicine 07/11/24 Cristobal Pereira MD [address] [place] [address] [place] [address] Referring Provider Neurology 06/07/24 documented as of this encounter
--- OUTSIDE RECORDS SUMMARY | 2024-07-17 14:20 | XMS_ITS | Encounter Summary ---
Author Organization [facility] Address [address] [place] [address] Care Team Providers Care Bakery Pastry Internship Name Role Phone Cristobal Pereira MD Unavailable Lester Osuna MD Primary Care Provider Shanna vailable Call, Tatyana Matias RN Unavailable [phone] Encounter Details Date Type Department Care Team (Late st Contact Info) Description 07/11/2024 Scanned Document [facility] NEUROSURGERY SCAN Neurosurgery, Scan Social [...] Description 08/11/2024 1:00 PM EDT Hospital Encounter [facility] Perioperative Surgical Services [address] [place] [phone] Richmond Adams MD 85 [facility] [address] [place] [address] Intracranial aneurysm 08/11/2024 1:00 PM EDT - 08/11/2024 2:45 PM EDT Surgery [facility] Perioperative Surgical Services [address] [place] [phone] Richmond Adams MD [address] [address] Diagnostic Cerebral Angiogram documented as of this encounter Visit Diagnoses Not on filedocumented in this encounter Care Teams Bakery Pastry Internship Relationship Specialty Start Date End Date Lester Osuna MD PCP - General Internal Medicine 07/11/24 Cristobal Pereira MD [address] [place] [address] Dr [address] [place] [address], [place] [address] Referring Provider Neurology 06/07/24 Tatyana Casas RN 85 [place] [address] Registered Nurse Surgery, Neurosurgery 07/13/24 documented as of this encounter
--- OUTSIDE RECORDS SUMMARY | 2024-07-17 14:20 | XMS_ITS | Clinical Summary ---
Author Organization [facility] Address [address] [place] [address] Care Team Providers Care Repairer Shoe Sticks Name Role Phone Cristobal Pereira MD Unavailable Lester Osuna MD Primary Care Provider Shanna vailable Call, Tatyana Matias RN Unavailable [phone] Allergies No known active allergies Medications [...] 07/11/2024 1:00 PM EST Consult [facility] [id number] [address] [place] [address] [place] [phone] Richmond Adams MD Intracranial aneurysm (Primary Dx) 07/11/2024 Scanned Document [facility] NEUROSURGERY SCAN Neurosurgery, Scan 07/11/2024 Travel 06/15/2024 9:55 AM EST Ancillary Procedure [facility] Radiology [address] [place] [address] Provider, File Room 06/07/2024 Transcribe Orders [facility] [id number] 85 [facility] [address] [place] [address] Cristobal Pereira MD Cerebral aneurysm [...] Description 08/11/2024 1:00 PM EDT Hospital Encounter [facility] Perioperative Surgical Services [address] [place] [address] Richmond Adams MD [address] [address] Intracranial aneurysm 08/11/2024 1:00 PM EDT - 08/11/2024 2:45 PM EDT Surgery [facility] Perioperative Surgical Services [address] [place] [phone] Richmond Adams MD [address] [address] Diagnostic Cerebral Angiogram Health Maintenance Due Date [...] File Room Provider IMG DIGITIZE FILMS ALEAH [phone] from Last 3 Months Care Teams Repairer Shoe Sticks Relationship Specialty Start Date End Date Lester Osuna MD PCP - General Internal Medicine 07/11/24 Cristobal Pereira MD [address] [place] [address] [place] [address] Referring Provider Neurology 06/07/24 Call, Tatyana Matias RN 85 [place] [address] Registered Nurse Surgery, Neurosurgery 07/13/24
--- OUTSIDE RECORDS SUMMARY | 2024-07-17 14:20 | XMS_ITS | Encounter Summary ---
Author Organization [facility] Address [address] [place] [address] Care Team Providers Care Bacteriology Technician Name Role Phone Cristobal Pereira MD Unavailable [phone] Lester Osuna MD Primary Care Provider Shanna [...] [facility] Perioperative Surgical Services [address] [place] [address] Richmond Adams MD [address] [address] Intracranial aneurysm 08/11/2024 1:00 PM EDT - 08/11/2024 2:45 PM EDT Surgery [facility] Perioperative Surgical Services [address] [place] [address] Richmond Adams MD [address] [place] [address] Diagnostic Cerebral Angiogram documented as of this encounter Visit Diagnoses Not on filedocumented in this encounter Care Teams Bacteriology Technician Relationship Specialty Start Date End Date Lester Osuna MD PCP - General Internal Medicine 07/11/24 Cristobal Pereira MD [address] [place] [address] Dr Vernon [facility] [place] [address] Referring Provider Neurology 06/07/24 documented as of this encounter
== END 2024-07-17 12:53 | disposition home or self-care (01) ==
PROVIDERS: PCP Internal Medicine; Visit Provider Internal Medicine Cardiovascular Disease
DX: I25.10 Atherosclerotic heart disease of native coronary artery without angina pectoris (principal); Z01.810 Encounter for preprocedural cardiovascular examination
CPT/HCPCS: 93010; 99214; G2211

== ENCOUNTER 2024-07-18 11:18 | Outpatient (REF) | payer MEDICARE, SELFPAY ==
[2024-07-18 11:49] LABS: Appearance Urine Clear; Color Urine Yellow; Glucose Urine UA Negative (Negative); Leukocyte Esterase Urine Trace (Negative); Nitrite Urine Negative (Negative); PH 5.5 (5.0-9.0); UMIC TRIGGER UA YES; Urine Blood Trace (Negative); Urine Ketones Negative (Negative); Urine Protein Negative (Neg-Trace)
[2024-07-18 11:52] LABS: Bacteria Urine None Seen (None Seen); Hyaline Casts Urine 0-2 /LPF (0-2); RBC Urine 0-2 /HPF (0-2); Squamous Epithelial Cell Urine 0-2 /HPF (0-2); WBC Urine 0-5 /HPF (0-5)
[2024-07-18 11:52] LABS: Hematocrit 39.1 % (37.0-47.0); Hemoglobin 12.8 g/dl (12.0-16.0); Mean Corpuscular HGB Conc 32.7 g/dl (31.0-35.0); Mean Corpuscular Hemoglobin 30.5 pg (27.0-33.0); Mean Corpuscular Volume 93.1 fL (80.0-98.0); Mean Platelet Volume 9.7 fL (9.4-12.3); Platelet Count 222 X10*3/uL (160-400); Red Cell Distribution Width 12.7 % (11.0-16.0); White Blood Count 4.6 X10*3/uL (4.8-10.8)
[2024-07-18 12:28] LABS: Alanine Aminotransferase 30 U/L (0-31); Albumin Level 4.2 g/dL (3.5-5.0); Alkaline Phosphatase 64 U/L (39-117); Anion Gap 9 (12-20); Aspartate Amino Transferase 32 U/L (5-31); Bilirubin Direct 0.2 mg/dL (0.0-0.5); Bilirubin Total 0.6 mg/dL (0.0-1.0); Blood Urea Nitrogen 13 mg/dL (9-16); Carbon Dioxide 30 mmol/L (22-29); Chloride 107 mmol/L (96-108); Cholesterol 139 mg/dL (<200); Estimated Glomerular Filt Rate > 60; Glucose Random 97 mg/dL (60-115); HDL Cholesterol 55 mg/dL (>40); LDL Cholesterol Calculated 68 mg/dL (<100); Potassium 4.2 mmol/L (3.3-5.1); Sodium 142 mmol/L (135-145); Total Protein 7.4 g/dL (6.5-8.0); Triglycerides 82 mg/dL (<150)
[2024-07-18 12:43] LABS: Thyroid Stimulating Hormone 1.93 uIU/mL (0.32-4.0)
--- OUTSIDE RECORDS SUMMARY | 2024-07-18 14:15 | XMS_ITS | Clinical Summary ---
Author Organization [facility] Address [address] [place] [address] Care Team Providers Care Child Development Instructor Name Role Phone Cristobal Pereira MD Unavailable Lester Osuna MD Primary Care Provider Shanna vailable Call, Tatyana Matias RN Unavailable [phone] Allergies No known active allergies Medications [...] 07/11/2024 1:00 PM EST Consult [facility] [id number] [address] [place] [address] [place] [phone] Richmond Adams MD Intracranial aneurysm (Primary Dx) 07/11/2024 Scanned Document [facility] NEUROSURGERY SCAN Neurosurgery, Scan 07/11/2024 Travel 06/15/2024 9:55 AM EST Ancillary Procedure [facility] Radiology [address] [place] [address] Provider, File Room 06/07/2024 Transcribe Orders [facility] [id number] 85 [facility] [address] [place] [address] Cristobal Pereira MD Cerebral aneurysm [...] Years Used Date Smoking Tobacco: Former Cigarettes 0.3 44.7 S tarted: 10/30/1979 Smokeless Tobacco: Never [...] Description 08/11/2024 1:00 PM EDT Hospital Encounter [facility] Perioperative Surgical Services [address] [place] [address] Richmond Adams MD [address] [address] Intracranial aneurysm 08/11/2024 1:00 PM EDT - 08/11/2024 2:45 PM EDT Surgery [facility] Perioperative Surgical Services [address] [place] [phone] Richmond Adams MD [address] [address] Diagnostic Cerebral Angiogram Health Maintenance Due Date [...] File Room Provider IMG DIGITIZE FILMS ALEAH [phone] from Last 3 Months Care Teams Child Development Instructor Relationship Specialty Start Date End Date Lester Osuna MD PCP - General Internal Medicine 07/11/24 Cristobal Pereira MD [address] [place] [address] [place] [address] Referring Provider Neurology 06/07/24 Call, Tatyana Matias RN [address] [place] [address] Registered Nurse Surgery, Neurosurgery 07/13/24
--- OUTSIDE RECORDS SUMMARY | 2024-07-18 14:15 | XMS_ITS | Patient Health Record ---
Author Organization [facility] Address [address] [place] [address] Care Team Providers Care Occupational Safety And Health Manager Name Role Phone Gabriel (RETIRED) Dieudonne GAO Primary Care Provid er Unavailable Dieudonne Méndez Unavailable [phone] ALLERGIES No Known Allergies REASON FOR REFERRAL [...] malignant neoplasm of colon (Z12.11) Active confirmed 658384738 Problem Personal history of colonic polyps (Z86.010) Active confirmed History of poly p of colon (situation) (247844209) Problem Diverticulosis of large intestine without perforation or abscess without bleeding (K57.30) Active confirmed Diverticul ar disease of colon (168646752) Problem Dysphagia (R13.10) Active confirmed Dys phagia (55201024) Problem Chest discomfort (R07.89) Active confirmed 052759559 Problem Preprocedural examination (Z01.818) Active confirmed 934610468192644 Problem Hx of adenomatous colonic polyps (Z86.010) Active confirmed 603723384 Problem Gastroesophageal reflux (K21.9) Active confirmed Esophageal re flux finding (775739803) Problem Chronic constipation (K59.09) Active confirmed Chronic constipation (312290987) Problem Esophageal dysphagia (R13.19) Active confirmed 71864434 VITAL SIGNS Temperature 96.9 degrees Fahrenheit 08/11/2023 Blood pressure diastolic 00 mm Hg 08/11/2023 Height 68.75 in 08/11/2023 Blood pressure systolic 000 mm Hg 08/11/2023 Weight 163 lb 4 oz lbs 08/11/2023 BMI 24.28 kg/m2 08/11/2023 Encounters Encounter Location Date Provider Diagnosis [facility] [address] [place] [phone] 12/06/2023 Dieudonne Méndez Colon cancer screeni ng Z12.11 ; Personal history of colonic polyps Z86.010 ; Diverticulosis of large intestine without perforation or abscess without bleeding K57.30 and Other hemorrhoids K64.8 [facility] [address] [place] [address] 08/11/2023 Dieudonne Méndez Hx of adenomatous colonic [...] Date MEDICARE OF [place] [address] [place] [address] [phone] [id number] MICHAEL SALINAS Self - patient is the insured [employer] CLAIMS [address] [place] [address] [id number] MICHAEL SALINAS Self - patient is the insured MEDICAL (GENERAL) HISTORY Medical History History ICD Code Screening colonoscopies 11-08 -2007 and 06/2013 with removal of a single small tubular adenoma, as well as the finding of some mild sigmoid diverticulosis and small internal hemorrhoids Hyperlipidemia Denies PA,DM,CVA,Lung disease,renal dise ase Urinary incontinence-mild Colonoscopy 07/2018 with a hyperplastic p olyp Neg. ETT with Dr. Clements EGD 07/2021-small HH, no esop hagitis, no Devries's, no Eosinophilic esophagitis Surgical History Surgery Date(Month/Year)
--- OUTSIDE RECORDS SUMMARY | 2024-07-18 14:15 | XMS_ITS ---
Author Organization [facility] Address [address] [place] [address] Care Team Providers Care Finance Consultant Name Role Phone Gabriel (RETIRED) Dieudonne GAO Primary Care Provid er Unavailable MéndezDieudonne Unavailable [phone] REASON FOR VISIT screening,hx polyps PROBLEMS Problem Type ICD Code Onset Dates Problem Status W/U Status Risk SNOMED Code Notes Problem Personal history of colonic polyps (Z86.010) Active confirmed History of polyp of colon (situation) (435598595) Problem Diverticulosis of large intestine without perforation or abscess without bleeding (K57.30) Active confirmed Diverticul ar disease of colon (368982045) Encounters Encounter Location Date Provider Diagnosis [facility] Out[facility] [address] [place] [phone] 12/06/2023 Dieudonne Méndez Colon cancer scree jose [...]
--- OUTSIDE RECORDS SUMMARY | 2024-07-18 14:15 | XMS_ITS ---
Author Organization [facility] Address [address] [place] [address] Care Team Providers Care Alternative Medicine Practitioner Name Role Phone Gabriel (RETIRED) Dieudonne GAO Primary Care Provid er Unavailable Dieudonne Méndez Unavailable [phone] ALLERGIES No Known Allergies REASON FOR VISIT [...] Chronic constipation (K59.09) Active confirmed Chronic constipation (016669660) VITAL SIGNS Temperature 96.9 degrees Fahrenheit 08/11/19 24 Blood pressure systolic 000 mm Hg 08/11/19 24 Blood pressure diastolic 00 mm Hg 024 Height 68.75 in 08/11/2023 Weight 163 lb 4 oz lbs 08/11/2023 BMI 24.28 kg/m2 08/11/2023 Encounters Encounter Location Date Provider Diagnosis [facility] [address] [place] [address] 08/11/2023 Dieudonne Méndez Hx of adenomatous colonic [...]
--- OUTSIDE RECORDS SUMMARY | 2024-07-18 14:15 | XMS_ITS | Encounter Summary ---
Author Organization [facility] Address [address] [place] [address] Care Team Providers Care After School Coordinator Name Role Phone Cristobal Pereira MD Unavailable Lester Osuna MD Primary Care Provider Shanna vailable Call, Tatyana Matias RN Unavailable [phone] Encounter Details Date Type Department Care Team (Late st Contact Info) Description 07/11/2024 Scanned Document [facility] NEUROSURGERY SCAN Neurosurgery, Scan Social History Tobacco [...] Description 08/11/2024 1:00 PM EDT Hospital Encounter [facility] Perioperative Surgical Services [address] [place] [phone] Richmond Adams MD 85 [facility] [address] [place] [address] Intracranial aneurysm 08/11/2024 1:00 PM EDT - 08/11/2024 2:45 PM EDT Surgery [facility] Perioperative Surgical Services [address] [place] [phone] Richmond Adams MD [address] [address] Diagnostic Cerebral Angiogram documented as of this encounter Visit Diagnoses Not on filedocumented in this encounter Care Teams After School Coordinator Relationship Specialty Start Date End Date Lester Osuna MD PCP - General Internal Medicine 07/11/24 Cristobal Pereira MD [address] [place] [address] Dr [address] [place] [address], [place] [address] Referring Provider Neurology 06/07/24 Tatyana Casas RN [address] [place] [address] Registered Nurse Surgery, Neurosurgery 07/13/24 documented as of this encounter
--- OUTSIDE RECORDS SUMMARY | 2024-07-18 14:15 | XMS_ITS | Encounter Summary ---
Author Organization [facility] Address [address] [place] [address] Care Team Providers Care Automotive Sales Executive Name Role Phone Cristobal Pereira MD Unavailable [...] Description 08/11/2024 1:00 PM EDT Hospital Encounter [facility] Perioperative Surgical Services [address] [place] [address] Richmond Adams MD [address] [address] Intracranial aneurysm 08/11/2024 1:00 PM EDT - 08/11/2024 2:45 PM EDT Surgery [facility] Perioperative Surgical Services [address] [place] [address] Richmond Adams MD [address] [place] [address] Diagnostic Cerebral Angiogram documented as of this encounter Visit Diagnoses Not on filedocumented in this encounter Care Teams Automotive Sales Executive Relationship Specialty Start Date End Date Lester Osuna MD PCP - General Internal Medicine 07/11/24 Cristobal Pereira MD [address] [place] [address] Dr Vernon [facility] [place] [address] Referring Provider Neurology 06/07/24 documented as of this encounter
== END 2024-07-18 11:19 | disposition home or self-care (01) ==
LOC: HO.LAB 11:18
PROVIDERS: PCP Internal Medicine; Visit Provider Internal Medicine
DX: I25.10 Atherosclerotic heart disease of native coronary artery without angina pectoris (principal); E78.5 Hyperlipidemia, unspecified; I67.1 Cerebral aneurysm, nonruptured
CPT/HCPCS: 36415; 80048; 80061; 80076; 81001; 84443; 85027

== ENCOUNTER → 2024-09-01 09:33 | Outpatient (REF) | payer MEDICARE, SELFPAY ==
--- NOTE | 2024-09-01 09:36 | CA_ITS ---
Acquisition Time: 2024-09-01 09:57:20 Total Exercise Time: 00:07:00 Test Indications: PREOP, CAD Medications: SEE H&P Protocol: MADHAVI Max HR: 146 BPM 96% of Pred: 152 BPM Max BP: 184/80 mmHG Max Work Load: 8.5 METS Exercises stress test with exercise 7 mins of Madhavi Protocol, achieving 91% MPHR, without any anginal symptoms, without any arrythmias, with normotensive response to exercise. EKG hard to interpret during exercise due to artifacts, mostly upsloping not meeting criteria for ischemia, pt has nonspecific ST at baseline. Nuclear images pending. Test reviewed with Dr. Clements. Referred By: Gilmar Clements Electronically Signed By: Kun Gong
--- OUTSIDE RECORDS SUMMARY | 2024-09-01 10:07 | XMS_ITS | Encounter Summary ---
Author Organization [facility] Address [address] [place] [address] Care Team Providers Care Dry Box Tender Name Role Phone Cristobal Pereira MD Unavailable [phone] Lester Osuna MD Primary Care Provider Shanna vailable Call, Tatyana Matias RN Unavailable [phone] Encounter Details Date Type Department Care Team (Late st Contact Info) Description 08/29/2024 Scanned Document [facility] NEUROSURGERY SCAN Neurosurgery, Scan Social History Tobacco Use Types Packs/Day Years Used Date Smoking Tobacco: Former Cigarettes 0.3 44.8 S tarted: 10/30/1979 Smokeless Tobacco: Never Alcohol Use Standard Drinks/Week Comments Yes 2 (1 standard drink = 0.6 oz pur e alcohol) AUDIT-C Answer Date Recorded Q1: How often do you have a drink containing alc ohol? 2-4 times a month 07/27/2024 Q2: How many drinks containi ng alcohol do you have on a typical day when you are drinking? 1 or 2 07/27/2024 Q3: How often do you have si x or more drinks on one occasion? Never 07/27/2024 Comments Unknown Sex and Gender Information Value Date Recorded Sex Assigned at Female 06/19/2024 10:59 AM EST Legal Sex Female 2:08 PM EST Gender Identity Female 06/19/2024 10:59 AM EST Sexual Orientation Heterosexual (straight) 08/11 9:09 AM EDT documented as of this encounter Plan of Treatment Not on file documented as of this encounter Visit Diagnoses Not on filedocumented in this encounter Care Teams Dry Box Tender Relationship Specialty Start Date End Date Lester Osuna MD PCP - General Internal Medicine 07/11/24 Cristobal Pereira MD Referring Provider Neurology 06/07/24 Augusto, Tatyana Matias RN [address] [place] [address] Registered Nurse Surgery, Neurosurgery 07/13/24 documented as of this encounter
--- OUTSIDE RECORDS SUMMARY | 2024-09-01 10:07 | XMS_ITS | Encounter Summary ---
Author Organization [facility] Address [address] [place] [address] Care Team Providers Care Manager Material Name Role Phone Cristobal Pereira MD Unavailable [phone] Lester Osuna MD Primary Care Provider Shanna vailable Call, Tatyana Matias RN Unavailable [phone] Reason for Visit * Reason Comments Follow-up Encounter Details Date Type Department Care Team (Late st Contact Info) Description 08/29/2024 11:15 AM EDT Office Visit [facility] [id number] [address] [place] [id number] Richmond Adams MD [address] [facility] [place] [address] [place] [id number] Intracranial aneurysm (Primary Dx) Social History Tobacco Use Types Packs/Day Years Used Date Smoking Tobacco: Former Cigarettes 0.3 44.8 S tarted: 10/30/1979 Smokeless Tobacco: Never Tobacco [...] AM EDT documented as of this encounter Last Filed Vital Signs Vital Sign Reading Time Taken Comments Blood Pressure 157/75 08/29/2024 11:12 AM EDT Pulse 54 08/29/2024 11:12 AM EDT Temperature 36.3 ??C (97.3 ??F) 08/29/2024 11:12 AM E DT Respiratory Rate - - Oxygen Saturation 97% 08/29/2024 11:12 AM EDT Inhaled Oxygen Concentration - - Weight 72.6 kg (160 lb) 08/29/2024 11:12 AM EDT Height 170.2 cm (5' 7 ) 08/29/2024 11:12 AM EDT Body Mass Index 25.06 08/29/2024 11:12 AM EDT documented in this encounter Progress Notes * Richmond Adams MD - 08/29/2024 11:15 AM EDT Assessment & Plan In summary, Ms. Okeefe is a 68-year old female with a large left V4 segment aneurysm, measuring 13.4 mm x 9.5mm x 8.7 mm with an 8.6mm neck arising from the left vertebral artery, proximal to the left posterior inferior cerebellar artery. This was confirmed on a diagnostic cerebral angiogram performed on August 11, 2024. We again had a detailed discussion regarding the natural history of unruptured intracranial aneurysms. I explained that aneurysm size and location are the primary determinants of aneurysm rupture risk, and I also explained that various other factors may contribute to rupture risk, including aneurysm morphology, drug and tobacco use and medical comorbidities (e.g. hypertension). I explained that, based on the ISUIA data, the estimated 5-year risk of this aneurysm rupturing may be as high as 15-20% over the next 5 years, in favor of treatment over ongoing observation. Based on the location and morphology of this aneurysm, I recommend coil-assisted flow diversion as the optimal treatment strategy. Flow diverting stent would require dual antiplatelets and given her prior intolerance to aspirin (without major bleeding event), we will trial an extended period of dual antiplatelets for approximately 3 weeks prior to the procedure and to ensure that she has no bleeding issues. Once the procedure is scheduled, she should start aspirin 81 mg and Brilinta 60 mg twicedaily 3 weeks prior. Additionally, she has an upcoming stress test which should be expedited in preparation for her urgent aneurysm treatment. The risks, benefits and alternatives of coil-assisted flow diversion were discussed at length with the patient and her . I explained that the risks include, but are not limited to, contrast orother drug reaction, groin hematoma, vascular injury, hemorrhagic or ischemic stroke and intra-procedural aneurysm rupture, coma or . We also discussed the risks associated with dual antiplatelet therapy, which will be started approximately one week prior to the procedure and will continue forat least 6 months post-procedurally, with aspirin monotherapy continued indefinitely thereafter. Finally, we discussed the various alternatives to flow diversion, including endovascular coiling with balloon- or stent-assistance, intrasaccular flow disruption, microsurgical treatment, and non-surgical medical management. The patient and her expressed understanding of these risks and alternatives, and wished to proceed with coil- assisted flow diversion. All questions were answered to their satisfaction, and written informed consent was obtained and placed in the patient's chart. For the interim, we discussed the importance of strict blood pressure control and avoiding tobacco products to minimize the risk of aneurysm rupture. We also discussed the signs and symptoms of aneurysm rupture, and I emphasized the importance of presenting immediately to the emergency department if any of these signs or symptoms should occur. It continues to be my pleasure to participate in the care of this patient. Please do not hesitate to contact me directly with any further questions or concerns. Wilmer Gallardo DO Endovascular Neurosurgery Fellow Richmond Adams MD Director, Cerebrovascular Neurosurgery [facility] [address] [facility] [address] [place] [address] Office Office Established patient office visit: 40 minutes spent on date of service, which included review of prior medical records and independent interpretation of imaging studies; history, review of systems, and physical/neurologic examination; communication with other providers, ordering new tests and referra ls, and documentation. Subjective Mer Okeefe is a 68-year old female with history of hyperlipidemia found to have an incidentallarge left V4 segment aneurysm after undergoing cranial imaging due to persistent headaches. She also reports a 6 month history of left cervical muscle spasm without isolated cervicalgia or radiculopathy. She denies weakness, speech difficulty and visual changes. She denies a personal history of hypertension, family history of cerebral aneurysms, illicit drug use and sentinel headache. She is a [facility] Of note, patient was previously placed on Asprin, 81mg, by her Portal Developer but has since been advised to discontinue the medication due to excessive bruising. She underwent a diagnostic cerebral angiogram on 08/11/24 which demonstrates a 13.4 mm x 9.5mm x 8.7mm aneurysm with an 8.6mm neck arising from the left vertebral artery proximal to the left posterior inferior cerebellar artery. Today she is doing well, with no neurological symptoms noted. She denies any issues with her groin site after the procedure. Of note, when she was on aspirin prior she had extensive bruising with no major bleeding events or GI bleeding noted. Objective Focused Neurological Exam: GCS 15 AOx3 Speech fluent FCx4 box blank machine operator grossly intact Full strength No PND SILT No dysmetria Imaging: I personally reviewed the cerebral angiogram on 08/11/24 which demonstrates a 13.4 mm x 9.5mm x 8.7 mm aneurysm with an 8.6mm neck arising from the left vertebral artery proximal to the left posteriorinferior cerebellar artery. documented in this encounter Plan of Treatment Not on file documented as of this encounter Visit Diagnoses Diagnosis Intracranial aneurysm- Primary Cerebral aneurysm, nonruptured documented in this encounter Care Teams Manager Material Relationship Specialty Start Date End Date Lester Osuna MD PCP - General Internal Medicine 07/11/24 Cristobal Pereira MD Referring Provider Neurology 06/07/24 Augusto, Tatyana Matias RN [address] [place] [address] Registered Nurse Surgery, Neurosurgery 07/13/24 documented as of this encounter
--- OUTSIDE RECORDS SUMMARY | 2024-09-01 10:07 | XMS_ITS | Encounter Summary ---
Author Organization [facility] Address [address] [place] [address] Care Team Providers Care [employer] Baseball Coach Name Role Phone Cristobal Pereira MD Unavailable [phone] Lester Osuna MD Primary Care Provider Shanna vailable Call, Tatyana Matias RN Unavailable [phone] Encounter Details Date Type Department Care Team (Latest Contact Info) Description 08/29/2024 Travel Social History Tobacco Use Types Packs/Day [...] on filedocumented in this encounter Care Teams Middle [employer] Baseball Coach Relationship Specialty Start Date End Date Lester Osuna MD PCP - General Internal Medicine 07/11/24 Cristobal Pereira MD Referring Provider Neurology 06/07/24 Call, Tatyana Matias RN [address] [place] [address] Registered Nurse Surgery, Neurosurgery 07/13/24 documented as of this encounter
--- OUTSIDE RECORDS SUMMARY | 2024-09-01 10:07 | XMS_ITS | Encounter Summary ---
Author Organization [facility] Address [address] [place] [address] Care Team Providers Care Dull [employer]at Mill Operator Name Role Phone Cristobal Pereira MD Unavailable [phone] Lester Osuna MD Primary Care Provider Shanna vailable Call, Tatyana Matias RN Unavailable [phone] Encounter Details Date Type Department Care Team (Late st Contact Info) Description 07/11/2024 Scanned Document [facility] NEUROSURGERY SCAN Neurosurgery, Scan Social History Tobacco Use Types Packs/Day Years Used Date Smoking Tobacco: Former Cigarettes 0.3 44.8 S tarted: 10/30/1979 Smokeless Tobacco: Never Alcohol Use Standard Drinks/Week Comments Yes 2 (1 standard drink = 0.6 oz pur e alcohol) Comments Unknown Sex and Gender Information Value [...] on filedocumented in this encounter Care Teams D[employer] Mill Operator Relationship Specialty Start Date End Date Lester Osuna MD PCP - General Internal Medicine 07/11/24 Cristobal Pereira MD Referring Provider Neurology 06/07/24 Call, Tatyana Matias RN [address] [place] [address] Registered Nurse Surgery, Neurosurgery 07/13/24 documented as of this encounter
--- OUTSIDE RECORDS SUMMARY | 2024-09-01 10:07 | XMS_ITS | Clinical Summary ---
Author Organization [facility] Address [address] [place] [address] Care Team Providers Care Contracts Administrator Name Role Phone Cristobal Pereira MD Unavailable [phone] Lester Osuna MD Primary Care Provider Shanna vailable Call, Tatyana Matias RN Unavailable [phone] Allergies No known active allergies Medications atorvastatin (LIPITOR) 40 MG tablet Take 1 tablet (40 mg total) by mouth every evening. Active butalbital-acet aminophen-caffe ine (FioriCET, ESGIC) 50-325-40 mg tablet TAKE 1 TO 2 TABLETS BY MOUTH EVERY DAY NEEDED FOR HEADACHE 05/22/2024 Active Vitamin D, Cholecalciferol , 25 MCG (1000 UT) Cap Take 1 capsule by mouth every morning. VIT D with ZINC Active ezetimibe (ZeTIA) 10 MG tablet Take 1 tablet (10 mg total) by mouth every evening. Active acetaminophen (TYLENOL) 500 MG tablet Take 1 tablet (500 mg total) by mouth 4 times daily (every 6 hours) as needed for headaches. Active riboflavin 100 MG tablet Take 1 tablet (100 mg total) by mouth every morning. Active Active Problems Problem Noted Date Diagnosed Date Intracranial aneurysm 08/11/2024 Encounters Date Type Department Care Team Description 08/29/2024 11:15 AM EDT Office Visit [facility] [id number] [address] [place] [phone] Richmond Adams MD Intracranial aneurysm (Primary Dx) 08/29/2024 Scanned Document [facility] NEUROSURGERY SCAN Neurosurgery, Scan 08/29/2024 Travel 08/14/2024 Telephone [facility] [place] [address] [facility] [address] [place] [address] Hari Truong RN 08/11/2024 10:15 AM EDT Anesthesia Event [facility] [address] [place] [address] Vikas Cross MD Ritchie, Agatha T, PA-C 08/11/2024 9:45 AM EDT - 08/11/2024 11:30 AM EDT Surgery [facility] [address] [place] [address] Richmond Adams MD Diagnostic Cerebral Angiogram 08/11/2024 9:14 AM EDT - 08/11/2024 4:18 PM EDT Hospital Encounter [facility] [address] [place] [address] Richmond Adams MD Intracranial aneurysm Discharge Disposition: Home or Self Care 08/11/2024 Travel 08/10/2024 Prep for Surgery [facility] [id number] [address] [phone] Yodit Calderon PA 08/09/2024 Telephone [facility] [id number] [address] [facility] [address] [place] [phone] Richmond Adams MD 08/04/2024 Prep for Surgery [facility] [id number] [address] [phone] Yodit Calderon PA 07/27/2024 Travel 07/11/2024 1:00 PM EST Consult [facility] [id number] [address] [address] Richmond Adams MD Intracranial aneurysm (Primary Dx) 07/11/2024 Scanned Document [facility] NEUROSURGERY SCAN Neurosurgery, Scan 07/11/2024 Travel 06/15/2024 9:55 AM EST Ancillary Procedure [facility] [address] [place] [address] Provider, File Room 06/07/2024 Transcribe Orders [facility] [id number] [address] [facility] [address] [place] [address] Cristobal Pereira MD Cerebral aneurysm (Primary Dx) [...] Orientation Heterosexual (straight) 08/11 9:09 AM EDT Last Filed Vital Signs Vital Sign Reading Time Taken Comments Blood Pressure 157/75 08/29/2024 11:12 AM EDT Pulse 54 08/29/2024 11:12 AM EDT Temperature 36.3 ??C (97.3 ??F) 08/29/2024 11:12 AM E DT Respiratory Rate 19 08/11/2024 4:00 PM EDT Oxygen Saturation 97% 08/29/2024 11:12 AM EDT Inhaled Oxygen Concentration - - Weight 72.6 kg (160 lb) 08/29/2024 11:12 AM EDT Height 170.2 cm (5' 7 ) 08/29/2024 11:12 AM EDT Body Mass Index 25.06 08/29/2024 11:12 AM EDT Plan of Treatment Health Maintenance Due Date Last Done Comments [...] Date/Time Associated Diagnosis Comments ENDOVASCULAR PROCEDURE Routine 08/11/2024 11:38 AM EDT Intracranial aneurysm ABO CONFIRMATION Routine 08/11/2024 9:58 AM EDT TYPE AND SCREEN Routine 08/11/2024 9:50 AM EDT ECG 12-LEAD Routine 08/11/2024 9:39 AM EDT MAYRA ARCHIVE FOR REFERENCE ONLY MR Routine 06/15/2024 9:55 AM EST from Last 3 Months Results * ARTERIOGRAPHY COMMON CAROTID INTRACRAN-BILAT (08/11/2024 11:38 AM EDT) Anatomical Region Laterality Modality Other Narrative 08/11/2024 4:23 PM EDT This study has been auto finalized please see the Notes tabs in Chart Review for final documentation. us Richmond Adams MD CV ENDOVASCULAR ORDERABLES Final Result * ABO Confirmation (08/11/2024 9:58 AM EDT) ABO/Rh A POSITIVE 08/11/2024 11:15 AM EDT [facility] Blood specimen / Unknown 08/11/2024 9:58 AM EDT 08/11/2024 10:03 AM EDT Richmond Adams MD BLOOD BANK TEST ORDERABLES Final Result Performing Organization Address [facility] [place] [address], [place] [address] * Type and Screen (08/11/2024 9:50 AM EDT) ABO/Rh A POSITIVE 08/11/2024 11:15 AM EDT [facility] Antibody Screen NEGATIVE 08/11/2024 11:15 AM EDT [facility] Specimen Expiration 08/14/2024 08/11/2024 11:15 AM EDT [facility] Blood Bank Comment Second Sample needed for Blood Transfusion 08/11/2024 11:15 AM EDT [facility] Blood Blood specimen / Unknown 08/11/2024 9:50 AM EDT 08/11/2024 10:02 AM EDT Yodit CURIEL BLOOD BANK TEST ORDERABLES Estefania l Result Performing Organization Address City/[facility]/[place] [address], [place] [address] * ECG 12 lead - Pre op (08/11/2024 9:39 AM EDT) Ventricular rate 61 BPM EKG [facility] Atrial rate 40 BPM EKG [facility] QRS duration 90 ms EKG [facility] Q-T interval 460 ms EKG [facility] QTC calculation (Bazett) 463 ms EKG [facility] R axis 19 degrees EKG [facility] T axis 50 degrees EKG [facility] 08/11/2024 9:39 AM EDT Narrative EKG [facility] - 08/11/2024 1:12 PM EDT Sinus rhythm Low voltage QRS Cannot rule out Anterior infarct , age undetermined Abnormal ECG No previous ECGs available Confirmed by MD Dorantes Komsu ([id number]) on 08/11/2024 1:12:51 PM Procedure Note Scott Dorantes MD - 08/11/2024 Sinus rhythm Low voltage QRS Cannot rule out Anterior infarct , age undetermined Abnormal ECG No previous ECGs available Confirmed by MD Dorantes Komsu ([id number]) on 08/11/2024 1:12:51 PM Yodit CURIEL ECG ORDERABLES Final Result Performing Organization Address [facility]/ZIP Co de Phone Number [facility] * MAYRA Archive for reference only MR (06/15/2024 9:55 AM EST) Anna BULLARD - 06/15/2024 9:51 AM EST This order has been auto-finalized and does not contain a result. us File Room Provider IMG DIGITIZE FILMS Final Resu lt ALEAH [phone] from Last 3 Months Insurance [facility] - PPO MEDICARE PART A & B Advance Directives * Full Code (Latest Code Status on File) Date Activated Date Inactivated Comments 08/11/2024 9:19 AM Care Teams Contracts Administrator Relationship Specialty Start Date End Date Lester Osuna MD PCP - General Internal Medicine 07/11/24 Cristobal Pereira MD Referring Provider Neurology 06/07/24 Augusto, Tatyana Matias RN [address] [place] [address] Registered Nurse Surgery, Neurosurgery 07/13/24
== END ==
LOC: HO.CARD 09:33
PROVIDERS: PCP Internal Medicine; Visit Provider Internal Medicine Cardiovascular Disease
DX: I25.10 Atherosclerotic heart disease of native coronary artery without angina pectoris (principal)
CPT/HCPCS: 93017

== ENCOUNTER → 2024-09-01 09:36 | Outpatient (BNV) | payer MEDICARE, SELFPAY | PROVIDERS: PCP Internal Medicine | DX: I25.10 Atherosclerotic heart disease of native coronary artery without angina pectoris (principal) | CPT/HCPCS: 78452; 93016; 93018 ==

== ENCOUNTER 2024-09-18 13:27 | Outpatient (AMB) | payer MEDICARE, SELFPAY ==
--- NOTE | 2024-09-18 13:28 | A.OFFPC_ITS ---
Vital Signs 09/18/24 13:32 Height 5 ft 7.25 in Weight 159 lb BMI 24.7 BP 141/77 H Respiration 14 Pulse 62 Pulse Source Pulse Oximeter Temp 97.6 F Temp Source Temporal Artery Scan Pulse Oximetry (%) 98 Oxygen Delivery Method Room Air Intake Visit Reasons: Vertebral artery aneurysm repair Maintenance Foreman Required: No Accompanied by: Self / Same As Patient Allergies No Known Allergies Allergy (Verified 09/18/24 14:00) Medication List - Last Reconciled 09/18/24 by Polly Lunsford PA-C aspirin (Adult Aspirin Regimen) 81 mg PO DAILY atorvastatin 40 mg PO DAILY ejzdyktkgq-telyjakhcwlmj-eudk 50-300-40 mg 1 cap PO Q4H PRN cholecalciferol (vitamin D3) 25 mcg PO DAILY ezetimibe 10 mg PO DAILY ticagrelor (Brilinta) 60 mg PO BID zinc 50 mg PO DAILY Tobacco use date assessed: 09/18/24 Fall risk assessment: No Falls in past year Last assessed Fall Risk: 09/18/24 Dental Screening Dental Screen Date: 09/18/24 Did you have a dental visit in the last 12 months?: Yes Did you have a dental problem in the last 6 months where you did not have access to dental care?: No Was dental information given to patient?: Patient has dentist HPI Vertebral artery aneurysm repair HPI Details The patient is a 68-year-old female presenting for preoperative clearance for her upcoming surgical procedure on October 02, 2024, to address a left vertebral artery aneurysm. Dr. Adams at [facility] will perform the procedure. Recently, on September 01, 2024, a nuclear stress test by Dr. Pereira indicated normal myocardial perfusion with appropriate left ventricular ejection fractions at both stress and rest, with no signs of transient ischemic dilation. Lab tests including creatinine and BUN, required by Dr. Adams, need to be completed within 30 days before surgery. Previous tests and an EKG from July 2024 have been discussed regarding their accessibility and relevance for this preoperative clearance. The patient has previously been medically optimized with a low cardiovascular risk profile as confirmed by cardiology clearance. [facility] Medical History (Updated 09/18/24 @ 14:06 by Polly Lunsford PA-C) Aneurysm of left vertebral artery Pre-operative clearance Cerebral aneurysm Urinary incontinence Elevated cholesterol CAD (coronary artery disease) Abnormal stress ECG with treadmill Surgical History History of esophagogastroduodenoscopy (EGD) H/O colonoscopy (~12/06/23) Family History Father No problems noted. Mother Stroke Brother Carotid stenosis Social History Housing: House Alcohol intake: current Alcohol intake frequency: a few times a week Patient Tobacco Use Status: Former Tobacco user Years Smoked: 8 +/- service: No Current occupational status: retired Cognitive needs: No Hearing needs: No Vision needs: Yes (rx glasses) Questionnaire PHQ-9 Over the last 2 weeks, how often have you been bothered by any of the following problems? 1. Little interest or pleasure in doing things: not at all 2. Feeling down, depressed, or hopeless: not at all 3. Trouble falling or staying asleep, or sleeping too much: not at all 4. Feeling tired or having little energy: not at all 5. Poor appetite or overeating: not at all 6. Feeling bad about yourself - or that you are a failure or have let yourself or your family down: not at all 7. Trouble concentrating on things, such as reading the newspaper or watching television: not at all 8. Moving or speaking so slowly that other people could have noticed. Or the opposite - being so fidgety or restless that you have been moving around a lot more than usual: not at all 9. Thoughts that you would be better off or of hurting yourself in some way: not at all Total score: 0 Depression Screening Interpretation: Negative Depression Screening Done: Yes 46511 - PHQ-9 Billing: Yes Source: Developed by Drs. Dieudonne Garcia, Jenny Sanchez, Bandar Sandoval and colleagues, with an educational bam from [employer]. Thrive Questionnaire Date Thrive assessed: 09/18/24 I am a: Patient What is your living situation today?: I have a steady place to live Within the past 12 months, did the food you bought not last and you didn't have the money to get more?: Never true Within the past 12 months, did you worry whether your food would run out before you got money to buy more?: Never true Do you have trouble paying for medicines?: No Do you have trouble getting transportation to medical appointments?: No Do you have trouble paying your heating and electricity bill?: No Do you have trouble taking care of your child, family member or friend?: No Do you have trouble with day-to-day activities such as bathing, preparing meals, shopping, managing finances, etc.?: No Are you currently unemployed and looking for a job?: No Are you interested in more education?: No Please select the resources that you would like help with: None THRIVE Score: 0 AUDIT C Alcohol Use Questionnaire (AUDIT-C) 1. How often do you have a drink containing alcohol?: 2-3 times a week 2. How many drinks containing alcohol do you have on a typical day when you are drinking?: 1 or 2 3. How often do you have six or more drinks on one occasion?: Never Total Score: 3 Score Reviewed/Action Taken: No MAGGIE-7 AMB Questionnaire MAGGIE-7 Date MAGGIE - 7 assessed: 09/18/24 Feeling nervous, anxious, or on edge: 0 = Not at all Not being able to stop or control worryin = Not at all Worrying too much about different things: 0 = Not at all Trouble relaxin = Not at all Being so restless that it is hard to sit still: 0 = Not at all Becoming easily annoyed or irritable: 0 = Not at all Feeling afraid as if something awful might happen: 0 = Not at all Total MAGGIE-7 score (0-4 normal; 5-9 mild; 10-14 moderate; 15-21 severe): 0 Source: Developed by Drs. Dieudonne Garcia, Jenny Sanchez, Bandar Sandoval and colleagues, with an educational bam from [employer]. MAGGIE-7 Assessment Billing MAGGIE-7 Assessment Tool: MAGGIE-7 Assessment 80512 Review of Systems Const Details: - Cardiovascular: Reports regular check-ups and recent cardiac evaluations via stress test. - Renal: Denies awareness of recent kidney function levels without lab tests. Physical exam (Primary Care) Vital Signs: Last Vital Signs Temp 97.6 F 09/18/24 13:32 Pulse 62 09/18/24 13:32 Resp 14 09/18/24 13:32 BP 141/77 H 09/18/24 13:32 Pulse Ox 98 09/18/24 13:32 Oxygen Delivery Method Room Air 09/18/24 13:32 Care Plan Goal for BP management: <130/90 BMI result Body Mass Index 24.7 normal bmi Tobacco/Smoking Status: Tobacco use Status Tobacco use date assessed 09/18/24 09/18/24 13:35 Patient Tobacco Use Status Former Tobacco user 09/18/24 13:43 Tobacco use type 05/03/24 10:01 PHQ-9: PHQ-9 Score PHQ-9: Total score 0 09/18/24 13:35 Depression Screening Interpretation: Negative Thrive Assessment: Date of Thrive Assessment Date Thrive assessed 09/18/24 09/18/24 13:35 Const Other: Appearance: Alert. Oriented X3. No acute distress. Head: Normal external exam. Normocephalic. Atraumatic. Eyes: Pupils are equal, round, and reactive to light. Extraocular movements intact. Conjunctiva and sclera normal. Eyelids normal. Throat: Pharynx normal. Uvula midline. Moist mucous membranes. Neck: Normal inspection. Neck supple. Full range of motion. Cardiovascular: Normal heart rate and rhythm. Heart sound normal. No murmurs noted. Pulses normal throughout. Respiratory: No respiratory distress. Painless inspiration. Breath sounds normal. No wheezes/rales/rhonchi noted. Chest nontender. No accessory muscle usage noted or decreased air movement noted. Back: Full range of motion noted. Skin: Skin warm and dry. Normal skin color. Normal skin turgor. No rashes/lesions/lacerations noted. Extremities: Extremities exhibit normal range of motion. Extremities nontender. Neuro: normal steady gait. Moving all extremities. No focal neuro deficits are noted. Results Reviewed Results Reviewed: - CBC on 07/18/2024 reviewed and within normal limits, chemistry at that time was within normal limits, liver enzymes within normal limits, cholesterol levels within normal limits and thyroid function within normal limits. - EKG performed on 07/17/2024 revealed sinus bradycardia with a ventricular rate of 57 with nonspecific T-wave abnormalities no acute ischemic change are noted. Reviewed by Dr. Clements. - Nuclear stress test completed on September 01, 2024, indicating normal myocardial perfusion, left ventricular ejection fraction of 64% during stress and 70% at rest, no transient ischemic dilation. Coding Level of Care Code New Pt Level 4 (83973) Complex EM visit Add On G2211 Diagnoses Pre-operative clearance Z01.818 Aneurysm of left vertebral artery I72.6 Additional Codes PHQ-9 - 50479 - PHQ-9 Billing: Yes ([id number]) MAGGIE-7 Assessment Billing - MAGGIE-7 Assessment Tool: MAGGIE-7 Assessment 60016 ([id number]) Assessment & Plan Assessment & Plan (1) Pre-operative clearance: Code(s): Z01.818 - Encounter for other preprocedural examination Category: Medical Plan: Surgery scheduled for October 02, [address] Richmond Ann. (2) Aneurysm of left vertebral artery: Code(s): I72.6 - Aneurysm of vertebral artery Category: Medical Plan: Surgery scheduled for October 02, [address] Richmond Ann. Condition is chronic and stable continue to monitor. Plan Plan Patient was informed and verbally consented to the use of an ambient scribe for clinic note documentation during this visit. 1. Vertebral Artery Aneurysm Scheduled surgical intervention; awaiting kidney function labs (creatinine, BUN) alongside previously completed tests for clearance; proactive coordination with surgical team and specialists. I have discussed with the patient the preoperative clearance requirements for the upcoming arterial aneurysm repairs, including necessary laboratory assessments of kidney function (creatinine and BUN) to be completed within the specific timeframe before surgery. We reviewed the outcomes of her recent stress test indicating satisfactory cardiac status and confirmed the low risk of cardiovascular morbidity and mortality regarding the surgery. I informed her of the importance of continuing medications appropriate for procedural preparation while discontinuing blood thinners like aspirin and Brilanta as directed by the specialists closer to the surgery date. We strategized on coordinating with Dr. Adams's office for final clearance and emphasized sending completed labs and notes directly to support upcoming medical review dates. Orders: Orders Basic Metabolic Panel Today Z01.818 - Encounter for other preprocedural examination Patient Instructions: - Complete blood tests for creatinine and BUN before October 02, 2024. - Consult with Dr. Adams's office about medication instructions before surgery. - Ensure seamless communication of all required tests and notes to [facility]. - Attend follow-up appointments as scheduled post-surgery. - Avoid using blood thinners, such as aspirin and Brillinta, starting three days prior to surgery. - Return for a follow-up visit a few weeks post-surgery to monitor recovery.
[2024-09-18 13:32] VITALS: BP 141/77; PULSE 62; RESP 14; TEMP 36.4; O2SAT 98; BMI 24.7
--- OUTSIDE RECORDS SUMMARY | 2024-09-18 14:54 | XMS_ITS | Clinical Summary ---
Author Organization [facility] Address [address] [place] [address] Care Team Providers Care Program/Music Director Name Role Phone Cristobal Pereira MD Unavailable Unava ilable Lester Osuna MD Primary Care Provider Shanna vailable Call, Tatyana Matias RN Unavailable [phone] Allergies No known active allergies Medications atorvastatin (LIPITOR) 40 MG tablet Take 1 tablet (40 mg total) by mouth every evening. Active butalbital-acet aminophen-caffe ine (FioriCET, ESGIC) 50-325-40 mg tablet TAKE 1 TO 2 TABLETS BY MOUTH EVERY DAY NEEDED FOR HEADACHE 5 Active Vitamin D, Cholecalciferol , 25 MCG [...] mg total) by mouth every morning. Active ticagrelor (BRILINTA) 60 MG tabletIndicatio ns:Intracranial aneurysm Take 1 tablet (60 mg total) by mouth 2 (two) times a day. Start medication on September 11, 2024, 3 weeks prior to procedure 180 tablet 1 5 Active aspirin enteric coated (ECOTRIN LOW STRENGTH) 81 MG EC tabletIndicatio ns:Intracranial aneurysm Take 1 tablet (81 mg total) by mouth daily. Start medication on September 11, 2024, 3 weeks prior to procedure 180 tablet Active Active Problems Problem Noted Date Diagnosed Date Intracranial aneurysm 08/11/2024 Encounters Date Type Department Care Team Description 09/05/2024 Telephone [facility] [id number] 85 [facility] [address] [place] [phone] Tatyana Casas RN 09/04/2024 Orders Only [facility] [id number] [address] [address] Yodit Calderon PA Intracranial aneurysm (Primary Dx) 09/04/2024 Telephone [facility] [address] [place] [address] Cheyenne Kay MA 08/29/2024 11:15 AM EDT Office Visit [facility] [id number] 85 [facility] [address] [place] [phone] Richmond Adams MD Intracranial aneurysm (Primary Dx) 08/29/[address] [facility] NEUROSURGERY SCAN Neurosurgery, Scan 08/29/2024 Travel 08/14/2024 Telephone [facility] Neurosurgery [place] 85 [facility] [address] [place] [address] Hari Truong RN 08/11/2024 10:15 AM EDT Anesthesia Event [facility] [address] [place] [address], [place] [address] Vikas Cross MD Ritchie, Agatha T, PA-C 08/11/2024 9:45 AM EDT - 08/11/2024 11:30 AM EDT Surgery [facility] [address] [place] [address] Richmond Adams MD Diagnostic Cerebral Angiogram 08/11/2024 9:14 AM EDT - 08/11/2024 4:18 PM EDT Hospital Encounter [facility] [address] [place] [address] Richmond Adams MD Intracranial aneurysm Discharge Disposition: Home or Self Care 08/11/2024 Travel 08/10/2024 Prep for Surgery [facility] [id number] 85 [facility] [address] [place] [phone] Yodit Calderon PA 08/09/2024 Telephone [facility] [id number] 85 [facility] [address] [place] [phone] Richmond Adams MD 08/04/2024 Prep for Surgery [facility] [id number] 85 [facility] [address] [place] [phone] Yodit Calderon PA 07/27/2024 Travel 07/11/2024 1:00 PM EST Consult [facility] [id number] 85 [facility] [address] [place] [phone] Richmond Adams MD Intracranial aneurysm (Primary Dx) 07/11/[address] [facility] NEUROSURGERY SCAN Neurosurgery, Scan 07/11/2024 Travel from Last 3 Months Family History Medical [...] Used Date Smoking Tobacco: Former Cigarettes 0.2 44.9 S tarted: 10/30/1979 Smokeless Tobacco: Never Tobacco [...] 08/29/2024 11:12 AM EDT Plan of Treatment Upcoming Encounters Date Type Department Care Team (Latest Contact Info) Description 10/04/2024 7:45 AM EDT Hospital Encounter [facility] [address] [place] [phone] Richmond Adams MD [address] [place] [address] Intracranial aneurysm 10/04/2024 7:45 AM EDT - 10/04/2024 10:15 AM EDT Surgery [facility] [address] [place] [address] Richmond Adams MD [address] [place] [phone] EMbolization- coil 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 Health Maintenance Due Date Last Done Comments Hepatitis C Virus Screening 1955 Annual Wellness Visit 12/07/1973 Physical 12/07/1973 DTaP/Tdap/Td Vaccines (1 - Tdap) 12/07/1974 Mammogram 1995 Colonoscopy 12/07/2000 Pneumococcal Vaccines 50+ (1 of 1 - PCV) 12/07/2005 Zoster (Shingles) Vaccine (1 of 2) 12/07/2005 DXA Bone Density (Females,Ages 65 and older) 12/07/2020 COVID-19 Vaccine (3 - 2023-2 5 season) 2024 09/04/2020, 08/14/2020 Influenza Vaccine 12/15/2024 04/18/2015, 04/11/2013 RSV Vaccine 60 years and older and Patients (1 - 1-dose 75+ series) 12/07/2030 Hepatitis B Vaccines Aged Out No long er eligible based on patient's age to complete this topic Procedures Procedure Name Priority Date/Time Associated Diagnosis Comments CARDIOLOGY PROCEDURE REPORT 09/01/2024 ENDOVASCULAR PROCEDURE Routine 08/11/2024 11:38 AM EDT Intracranial aneurysm ABO CONFIRMATION Routine 08/11/2024 9:58 AM EDT TYPE AND SCREEN Routine 08/11/2024 9:50 AM EDT ECG 12-LEAD Routine 08/11/2024 9:39 AM EDT from Last 3 Months Results * CARDIOLOGY PROCEDURE REPORT (09/01/2024) Anatomical Region Laterality Modality Other Narrative 09/01/2024 Ordered by an unspecified provider. Generic Provider [facility] CARDIAC SERVICES ORDERABLES Final Result * ARTERIOGRAPHY COMMON CAROTID INTRACRAN-BILAT (08/11/2024 11:38 AM EDT) Anatomical Region Laterality Modality Other Narrative 08/11/2024 4:23 PM EDT This study has been auto finalized please see the Notes tabs in Chart Review for final documentation. Richmond Adams MD CV ENDOVASCULAR ORDERABLES Final Result * ABO Confirmation (08/11/2024 9:58 AM EDT) ABO/Rh A POSITIVE 08/11/2024 11:15 AM EDT [facility] Blood specimen / Unknown 08/11/2024 9:58 AM EDT 08/11/2024 10:03 AM EDT Richmond Adams MD BLOOD BANK TEST ORDERABLES Final Result Performing Organization Address [facility] Co de Phone Number [address] [address], [address] [address] * Type and Screen (08/11/2024 9:50 AM EDT) ABO/Rh A POSITIVE 08/11/2024 11:15 AM EDT [facility] Antibody Screen NEGATIVE 08/11/2024 11:15 AM EDT [facility] Specimen Expiration 08/14/2024 08/11/2024 11:15 AM EDT [facility] Blood Bank Comment Second Sample needed for Blood Transfusion 08/11/2024 11:15 AM EDT [facility] Blood Blood specimen / Unknown 08/11/2024 9:50 AM EDT 08/11/2024 10:02 AM EDT Yodit CURIEL BLOOD BANK TEST ORDERABLES Estefania l Result Performing Organization Address City/[facility]/ZIP Co de Phone Number [address] [address], [address] [address] * ECG 12 lead - Pre op (08/11/2024 9:39 AM EDT) Ventricular rate 61 BPM EKG [facility] Atrial rate 40 BPM EKG [facility] QRS duration 90 ms EKG [facility] Q-T interval 460 ms EKG [facility] QTC calculation (Bazett) 463 ms EKG [facility] R axis 19 degrees EKG [facility] T axis 50 degrees EKG [facility] 08/11/2024 9:39 AM EDT Narrative G [facility] - 08/11/2024 1:12 PM EDT Sinus [...] Dorantes Komsu (42) on 08/11/2024 1:12:51 PM us Yodit CURIEL ECG ORDERABLES Final Result [facility] from Last 3 Months Insurance [facility] MEDIC[facility] PART A & B Advance Directives * Full Code (Latest Code Status on File) Date Activated Date Inactivated Comments 08/11/2024 9:19 AM Care Teams Program/Music Director Relationship Specialty Start Date End Date Lester Osuna MD PCP - General Internal Medicine 07/11/24 Cristobal Pereira MD Referring Provider Neurology 06/07/24 Call, Tatyana Matias RN [address] [place] [phone] Registered Nurse Surgery, Neurosurgery 07/13/24
--- OUTSIDE RECORDS SUMMARY | 2024-09-18 14:54 | XMS_ITS | Encounter Summary ---
Author Organization [facility] Address [address] [place] [address] Care Team Providers Care Commissary Steward Name Role Phone Cristobal Pereira MD Unavailable Unava ilable Lester Osuna MD Primary Care Provider Shanna vailable Call, Tatyana Matias RN Unavailable [phone] Encounter Details Date Type Department Care Team (Late st Contact Info) Description 08/29/[address] [facility] NEUROSURGERY SCAN Neurosurgery, Scan Social History Tobacco Use Types Packs/Day Years Used Date Smoking Tobacco: Former Cigarettes 0.2 44.9 S tarted: 10/30/1979 Smokeless Tobacco: Never Alcohol [...] Description 10/04/2024 7:45 AM EDT Hospital Encounter [facility] [address] [place] [phone] Richmond Adams MD [address] [address] Intracranial aneurysm 10/04/2024 7:45 AM EDT - 10/04/2024 10:15 AM EDT Surgery [facility] [address] [place] [address] Richmond Adams MD [address] [place] [phone] 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
--- OUTSIDE RECORDS SUMMARY | 2024-09-18 14:54 | XMS_ITS | Encounter Summary ---
Author Organization [facility] Address [address] [place] [address] Care Team Providers Care Engravings Polisher Name Role Phone Cristobal Pereira MD Unavailable Unava ilable Lester Osuna MD Primary Care Provider Shanna vailable Call, Tatyana Matias RN Unavailable [phone] Encounter Details Date Type Department Care Team (Late st Contact Info) Description 07/11/2024 Scanned Document 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
== END 2024-09-18 13:59 | disposition home or self-care (01) ==
LOC: HO.HMCSH 13:27
PROVIDERS: PCP Internal Medicine; Visit Provider Physician Assistant Medical
DX: Z01.818 Encounter for other preprocedural examination (principal); I72.6 Aneurysm of vertebral artery

== ENCOUNTER → 2024-09-18 13:27 | Outpatient (BNVA) | payer MEDICARE, SELFPAY | PROVIDERS: PCP Internal Medicine; Visit Provider Physician Assistant Medical | DX: Z01.818 Encounter for other preprocedural examination (principal); I72.6 Aneurysm of vertebral artery | CPT/HCPCS: 96127; 99202 ==

== ENCOUNTER 2024-09-19 14:11 | Outpatient (REF) | payer MEDICARE, SELFPAY ==
--- OUTSIDE RECORDS SUMMARY | 2024-09-19 15:33 | XMS_ITS | Encounter Summary ---
Author Organization [facility] Address [address] [place] [address] Care Team Providers Care Grade Teacher Name Role Phone Cristobal Pereira MD Unavailable Unava ilable Lester Osuna MD Primary Care Provider Shanna vailable Call, Tatyana Matias RN Unavailable [phone] Encounter Details Date Type Department Care Team (Late st Contact Info) Description 07/11/2024 Scanned Document [facility] NEUROSURGERY SCAN Neurosurgery, Scan Social History Tobacco Use Types Packs/Day Years Used Date Smoking Tobacco: Former Cigarettes 0.3 44.9 S tarted: 10/30/1979 Smokeless Tobacco: Never [...] Description 10/04/2024 7:45 AM EDT Hospital Encounter [facility] Perioperative Surgical Services [address] [place] [phone] Richmond Adams MD 85 [facility] [address] [place] [address] Intracranial aneurysm 10/04/2024 7:45 AM EDT - 10/04/2024 10:15 AM EDT Surgery [facility] Perioperative Surgical Services [address] [place] [phone] Richmond Adams MD 85 [facility] [address] [place] [phone] 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
--- OUTSIDE RECORDS SUMMARY | 2024-09-19 15:33 | XMS_ITS | Encounter Summary ---
Author Organization [facility] Address [address] [place] [address] Care Team Providers Care Press Tender Star Signal Name Role Phone Cristobal Pereira MD Unavailable Unava ilable Lester Osuna MD Primary Care Provider Shanna vailable Call, Tatyana Matias RN Unavailable [phone] Encounter Details Date Type Department Care Team (Latest Contact Info) Description 09/19/2024 Travel Social History Tobacco Use Types Packs/Day Years Used Date Smoking Tobacco: Former Cigarettes 0.3 44.9 S tarted: 10/30/1979 Smokeless Tobacco: Never Alcohol Use Standard Drinks/Week Comments Yes 2 (1 standard drink = 0.6 oz pur e alcohol) AUDIT-C Answer Date Recorded Q1: How often do you have a drink containing alc ohol? 2-3 times a week 09/19/2024 Q2: How many drinks containi ng alcohol do you have on a typical day when you are drinking? 1 or 2 09/19/2024 Q3: How often do you have si x or more drinks on one occasion? Never 09/19/2024 Comments Unknown Sex and Gender Information Value Date Recorded Sex Assigned at Female 06/19/2024 10:59 AM EST Legal Sex Female 2:08 PM EST Gender Identity Female 06/19/2024 10:59 AM EST Sexual Orientation Heterosexual (straight) 08/11 9:09 AM EDT documented as of this encounter Functional Status * Audit-C Score Answer Date of Assessment Author 3 09/19/2024 1:34 PM EDT Mary Smith RN * Question Answer Date of Assessment Author Q1: How often do you have a drink containing alcohol? 2-3 times a week 09/19/2024 1:34 PM EDT Levi Smith RN Q2: How many drinks containing alcohol do you have on a typical day when you are drinking? 1 or 2 09/19/2024 1:34 PM EDT Levi Smith RN Q3: How often do you have six or more drinks on one occasion? Never 09/19/2024 1:34 PM EDT Levi Smith RN documented as of this encounter Plan of Treatment Upcoming Encounters Date Type Department Care Team (Latest Contact Info) Description 10/04/2024 7:45 AM EDT Hospital Encounter [facility]operative Surgical Services [address] [place] [phone] Richmond Adams MD [address] [place] [phone] Intracranial aneurysm 10/04/2024 7:45 AM EDT - 10/04/2024 10:15 AM EDT Surgery [facility] [address] [place] [phone] Richmond Adams MD [address] [place] [phone] 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
--- OUTSIDE RECORDS SUMMARY | 2024-09-19 15:33 | XMS_ITS | Encounter Summary ---
Author Organization [facility] Address [address] [place] [address] Care Team Providers Care Machine Cloth Examiner Name Role Phone Cristobal Pereira MD Unavailable Unava ilable Lester Osuna MD Primary Care Provider Shanna vailable Call, Tatyana Matias RN Unavailable [phone] Encounter Details Date Type Department Care Team (Late st Contact Info) Description 08/29/2024 Scanned Document [facility] NEUROSURGERY SCAN Neurosurgery, Scan Social History Tobacco [...] Description 10/04/2024 7:45 AM EDT Hospital Encounter [facility] Perioperative Surgical Services [address] [place] [phone] Richmond Adams MD [address] [address] Intracranial aneurysm 10/04/2024 7:45 AM EDT - 10/04/2024 10:15 AM EDT Surgery [facility] Perioperative Surgical Services [address] [place] [phone] Richmond Adams MD [address] [place] [phone] 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
--- OUTSIDE RECORDS SUMMARY | 2024-09-19 15:33 | XMS_ITS | Clinical Summary ---
Author Organization [facility] Address [address] [place] [address] Care Team Providers Care Business Intelligence Director Name Role Phone Cristobal Pereira MD Unavailable Unava ilable Lester Osuna MD Primary Care Provider Shanna vailable Call, Tatyana Matias RN Unavailable [phone] Allergies No known active allergies Medications [...] Encounters Date Type Department Care Team Description 09/19/2024 Travel 09/05/2024 Telephone [facility] [id number] 85 [facility] [address] [place] [phone] Tatyana Casas RN 09/04/2024 Orders Only [facility] [id number] 85 [facility] [address] [place] [phone] Yodit Calderon PA Intracranial aneurysm (Primary Dx) 09/04/2024 Telephone [facility] [address] [place] [phone] Cheyenne Kay MA 08/29/2024 11:15 AM EDT Office Visit [facility] [id number] 85 [facility] [address] [place] [phone] Richmond Adams MD Intracranial aneurysm (Primary Dx) 08/29/2024 Scanned Document [facility] NEUROSURGERY SCAN Neurosurgery, Scan 08/29/2024 Travel 08/14/2024 Telephone [facility] Neurosurgery [place] 85 [facility] [address] [place] [phone] Hari Truong RN 08/11/2024 10:15 AM EDT Anesthesia Event [facility] Perioperative Surgical Services [address] [place] [phone] Vikas Cross MD Ritchie, Agatha T, PA-C 08/11/2024 9:45 AM EDT - 08/11/2024 11:30 AM EDT Surgery [facility] Perioperative Surgical Services [address] [place] [phone] Richmond Adams MD Diagnostic Cerebral Angiogram 08/11/2024 9:14 AM EDT - 08/11/2024 4:18 PM EDT Hospital Encounter [facility]operative [facility] Services [address] [place] [address] Richmond Adams MD Intracranial aneurysm Discharge Disposition: Home or Self Care 08/11/2024 Travel 08/10/2024 Prep for Surgery [facility] [id number] 85 [facility] [address] [place] [phone] Yodit Calderon PA 08/09/2024 Telephone [facility] [id number] 85 [facility] [address] [place] [phone] Richmond Adams MD 08/04/2024 Prep for Surgery [facility] [id number] 85 [facility] [address] [place] [phone] Yodit Calderon PA 07/27/2024 Travel 07/11/2024 1:00 PM EST Consult [facility] [id number] 85 [facility] [address] [place] [phone] Richmond Adams MD Intracranial aneurysm (Primary Dx) 07/11/2024 Scanned Document [facility] NEUROSURGERY SCAN Neurosurgery, Scan 07/11/2024 Travel [...] - - Weight 72.6 kg (160 lb) 09/19/2024 1:31 PM EDT Height 170.2 cm (5' 7 ) 09/19/2024 1:31 PM EDT Body Mass Index 25.06 09/19/2024 1:31 PM EDT Plan of Treatment Upcoming Encounters Date Type Department Care Team (Latest Contact Info) Description 10/04/2024 7:45 AM EDT Hospital Encounter [facility] Perioperative Surgical Services [address] [place] [phone] Richmond Adams MD [address] [place] [address] Intracranial aneurysm 10/04/2024 7:45 AM EDT - 10/04/2024 10:15 AM EDT Surgery [facility] Perioperative Surgical Services [address] [place] [phone] Richmond Adams MD [address] [place] [phone] EMbolization- coil Assisted Flow diversion of left [...] Narrative 09/01/2024 Ordered by an unspecified provider. us Generic Provider [facility] CARDIAC SERVICES ORDERABLES Final [...] ABO/Rh A POSITIVE 08/11/2024 11:15 AM EDT [facility] Blood specimen / Unknown 08/11/2024 9:58 AM EDT 08/11/2024 10:03 AM EDT Richmond Adams MD BLOOD BANK TEST ORDERABLES Final Result Performing Organization Address [facility] Co de Phone Number [address] [address], [place] [address] * Type and Screen (08/11/2024 9:50 AM EDT) ABO/Rh A POSITIVE 08/11/2024 11:15 AM EDT [facility] Antibody Screen NEGATIVE 08/11/2024 11:15 AM EDT [facility] Specimen Expiration 08/14/2024 08/11/2024 11:15 AM EDT [facility] Blood Bank Comment Second Sample needed for Blood Transfusion 08/11/2024 11:15 AM EDT [facility] Blood Blood specimen / Unknown 08/11/2024 9:50 AM EDT 08/11/2024 10:02 AM EDT Yodit CURIEL BLOOD BANK TEST ORDERABLES Estefania l Result [address] [address], [address] [address] * ECG 12 lead - Pre op (08/11/2024 9:39 AM EDT) Ventricular rate 61 BPM EKG [facility] Atrial rate 40 BPM EKG [facility] QRS duration 90 ms EKG [facility] Q-T interval 460 ms EKG [facility] QTC calculation (Bazett) 463 ms EKG [facility] R axis 19 degrees EKG [facility] T axis [facility] 08/11/2024 9:39 AM EDT Narrative EKG [facility] - 08/11/2024 1:12 PM EDT Sinus [...] PM Yodit CURIEL ECG ORDERABLES Final Result [facility] from Last 3 Months Insurance [facility] MEDIC[facility] PART A & B Advance Directives * Full Code (Latest Code Status on File) Date Activated Date Inactivated Comments 08/11/2024 9:19 AM Care Teams Business Intelligence Director Relationship Specialty Start Date End Date Lester Osuna MD PCP - General Internal Medicine 07/11/24 Cristobal Pereira MD Referring Provider Neurology 06/07/24 Call, Tatyana Matias RN [address] [place], [place] [phone] Registered Nurse Surgery, Neurosurgery 07/13/24
[2024-09-19 15:41] LABS: Anion Gap 10 (12-20); Blood Urea Nitrogen 21 mg/dL (9-16); Calcium 8.9 mg/dL (8.4-10.2); Carbon Dioxide 30 mmol/L (22-29); Chloride 107 mmol/L (96-108); Estimated Glomerular Filt Rate > 60; Glucose Random 95 mg/dL (60-115); Potassium 3.6 mmol/L (3.3-5.1); Sodium 143 mmol/L (135-145)
== END 2024-09-19 14:12 | disposition home or self-care (01) ==
LOC: HO.LAB 14:11
PROVIDERS: PCP Internal Medicine; Visit Provider Physician Assistant Medical
DX: Z01.818 Encounter for other preprocedural examination (principal)
CPT/HCPCS: 36415; 80048

== ENCOUNTER 2025-01-23 09:32 | Outpatient (AMB) | payer MEDICARE, SELFPAY ==
--- NOTE | 2025-01-23 09:39 | A.OFFPC_ITS ---
Vital Signs 01/23/25 09:40 Height 5 ft 7.25 in Weight 149 lb BMI 23.2 BP 158/71 H Respiration 14 Pulse 60 Pulse Source Pulse Oximeter Temp 98.2 F Temp Source Temporal Artery Scan Pulse Oximetry (%) 98 Oxygen Delivery Method Room Air Intake Visit Reasons: 6 month follow up [employer]obile [employer] Station Manager Required: No Accompanied by: Self / Same As Patient Allergies No Known Allergies Allergy (Verified 01/23/25 09:40) Tobacco use date assessed: 01/23/25 Dental Screening Dental Screen Date: 09/18/24 [facility] Medical History Aneurysm of left vertebral artery Pre-operative clearance Cerebral aneurysm Urinary incontinence Elevated cholesterol CAD (coronary artery disease) Abnormal stress ECG with treadmill Surgical History History of esophagogastroduodenoscopy (EGD) H/O colonoscopy (~12/06/23) Family History Father No problems noted. Mother Stroke Brother Carotid stenosis Social History Housing: House Alcohol intake: current Alcohol intake frequency: a few times a week Patient Tobacco Use Status: Former Tobacco user Years Smoked: 8 +/- service: No Current occupational status: retired Cognitive needs: No Hearing needs: No Vision needs: Yes (rx glasses) Questionnaire PHQ-9 Over the last 2 weeks, how often have you been bothered by any of the following problems? 1. Little interest or pleasure in doing things: not at all 2. Feeling down, depressed, or hopeless: not at all 3. Trouble falling or staying asleep, or sleeping too much: not at all 4. Feeling tired or having little energy: not at all 5. Poor appetite or overeating: not at all 6. Feeling bad about yourself - or that you are a failure or have let yourself or your family down: not at all 7. Trouble concentrating on things, such as reading the newspaper or watching television: not at all 8. Moving or speaking so slowly that other people could have noticed. Or the opposite - being so fidgety or restless that you have been moving around a lot more than usual: not at all 9. Thoughts that you would be better off or of hurting yourself in some way: not at all Total score: 0 Depression Screening Interpretation: Negative Depression Screening Done: Yes 86105 - PHQ-9 Billing: Yes Source: Developed by Drs. Dieudonne Garcia, Jenny Sanchez, Bandar Sandoval and colleagues, with an educational bam from [employer]. Thrive Questionnaire Date Thrive assessed: 09/18/24 I am a: Patient What is your living situation today?: I have a steady place to live Within the past 12 months, did the food you bought not last and you didn't have the money to get more?: Never true Within the past 12 months, did you worry whether your food would run out before you got money to buy more?: Never true Do you have trouble paying for medicines?: No Do you have trouble getting transportation to medical appointments?: No Do you have trouble paying your heating and electricity bill?: No Do you have trouble taking care of your child, family member or friend?: No Do you have trouble with day-to-day activities such as bathing, preparing meals, shopping, managing finances, etc.?: No Are you currently unemployed and looking for a job?: No Are you interested in more education?: No Please select the resources that you would like help with: None THRIVE Score: 0 AUDIT C Alcohol Use Questionnaire (AUDIT-C) 1. How often do you have a drink containing alcohol?: 2-3 times a week 2. How many drinks containing alcohol do you have on a typical day when you are drinking?: 1 or 2 3. How often do you have six or more drinks on one occasion?: Never Total Score: 3 Score Reviewed/Action Taken: No MAGGIE-7 AMB Questionnaire MAGGIE-7 Date MAGGIE - 7 assessed: 09/18/24 Feeling nervous, anxious, or on edge: 0 = Not at all Not being able to stop or control worryin = Not at all Worrying too much about different things: 0 = Not at all Trouble relaxin = Not at all Being so restless that it is hard to sit still: 0 = Not at all Becoming easily annoyed or irritable: 0 = Not at all Feeling afraid as if something awful might happen: 0 = Not at all Total MAGGIE-7 score (0-4 normal; 5-9 mild; 10-14 moderate; 15-21 severe): 0 Source: Developed by Drs. Dieudonne Garcia, Jenny Sanchez, Bandar Sandoval and colleagues, with an educational bam from [employer]. MAGGIE-7 Assessment Billing MAGGIE-7 Assessment Tool: MAGGIE-7 Assessment 25148 Physical exam (Primary Care) Vital Signs: Last Vital Signs Temp 98.2 F 01/23/25 09:40 Pulse 60 01/23/25 09:40 Resp 14 01/23/25 09:40 BP 158/71 H 01/23/25 09:40 Pulse Ox 98 01/23/25 09:40 Oxygen Delivery Method Room Air 01/23/25 09:40 BMI result Body Mass Index 23.2 Tobacco/Smoking Status: Tobacco use Status Tobacco use date assessed 01/23/25 01/23/25 09:41 Patient Tobacco Use Status Former Tobacco user 01/23/25 09:41 Tobacco use type 01/05/25 10:16 PHQ-9: PHQ-9 Score PHQ-9: Total score 0 01/23/25 09:41 Depression Screening Interpretation: Negative Thrive Assessment: Date of Thrive Assessment Date Thrive assessed 09/18/24 01/23/25 09:41 Coding Level of Care Code Est Pt Level 4 (95221) Complex EM visit Add On G2211 Diagnoses Hyperlipidemia E78.5 Additional Codes MAGGIE-7 Assessment Billing - MAGGIE-7 Assessment Tool: MAGGIE-7 Assessment 87029 ([id number]) PHQ-9 - 44953 - PHQ-9 Billing: Yes ([id number]) Assessment & Plan Assessment & Plan (1) Hyperlipidemia: Code(s): E78.5 - Hyperlipidemia, unspecified Category: Medical Plan: History of Present Illness - The patient is a 69-year-old female presenting with bilateral knee pain and headaches. - Bilateral knee pain has been ongoing for several years, worsened by hiking, particularly downhill, and managed with knee braces. - Ocular migraines are infrequent, with kaleidoscope visual disturbances in the left eye, managed with Tylenol PM. - Headaches are more frequent at higher elevations and dry conditions, with occasional nosebleeds attributed to dryness. - Blood pressure was noted at 158/70 mmHg, which may contribute to headaches. - Sleep disturbances include difficulty maintaining sleep, sometimes alleviated by Tylenol PM or magnesium supplements. - Preventative care includes a scheduled mammogram in March and a recent colonoscopy. Social History - The patient is an active hiker, adjusting hiking routes based on terrain difficulty to accommodate knee pain. Review of Systems - Musculoskeletal: Reports bilateral knee pain exacerbated by hiking, especially downhill. Denies pain during normal daily activities. - Neurological: Reports infrequent ocular migraines with kaleidoscope visual disturbances in the left eye. Reports headaches more frequent at higher elevations and dry conditions. Denies persistent headaches. - Cardiovascular: Reports occasional nosebleeds, possibly related to dry conditions and medication use. Denies chest pain or palpitations. - Sleep: Reports difficulty maintaining sleep, sometimes alleviated by Tylenol PM or magnesium supplements. Physical Exam General: Cooperative and healthy appearing Nutritional Appearance: Well nourished Orientation/consciousness: Patient oriented x3 Limitations: No limitations Head: Normal to inspection General: Appearance normal, both eyes and all related structures Neck: Normal visual inspection Chest: Normal palpation of entire chest wall Respiratory: N ormal respiratory effort Neurology: Patient oriented x3, reports occasional headaches, sometimes wakes up with headaches, described as ocular migraines by neurologist, rare occurrence. Blood pressure noted to be 158/70. Results - Labs: Blood work from July showed normal cholesterol and thyroid levels. Plan 1. Bilateral Knee Pain - Referral to [facility] for further evaluation and possible MRI to assess knee condition. - Consideration of specific exercises based on orthopedic evaluation. 2. Ocular Migraines - Continue current management with Tylenol PM as needed for symptom relief. 3. Hypertension - Monitor blood pressure regularly to assess control and potential contribution to headaches. 4. Sleep Disturbances - Consider use of magnesium supplements or melatonin for sleep support. Discussion Notes I discussed the patient's knee pain and recommended a referral to [facility] for further evaluation, including the possibility of an MRI and specific exercises. We also reviewed her ocular migraines and current management with Tylenol PM. I advised monitoring her blood pressure due to its potential contribution to headaches. For sleep disturbances, I suggested considering magnesium supplements or melatonin. We confirmed her upcoming mammogram appointment in March and reviewed her recent blood work results. Patient Instructions - Follow up with [facility] for knee evaluation. - Monitor blood pressure regularly and report any significant changes. - Consider using magnesium supplements or melatonin for sleep support. - Attend scheduled mammogram appointment in March. Orders: Referrals Orthopedics Referral [id number] - Sprain of unspecified site of unspecified knee, initial encounter
[2025-01-23 09:40] VITALS: BP 158/71; PULSE 60; RESP 14; TEMP 36.8; O2SAT 98; BMI 23.2
--- OUTSIDE RECORDS SUMMARY | 2025-01-23 10:59 | XMS_ITS ---
Author Name [facility] Organization Unknown Results Test Name/Text Value Interpretation Date Range Source Magnesium SerPl-mCnc 2.1 mg/dL 10/05/2024 1.6 - 2. 7 [facility] BUN SerPl-mCnc 11.0 mg/dL 10/05/2024 8 - [address] Calcium SerPl-mCnc 8.3 mg/dL Below low normal 10/05/2024 8.7 - 10.5 HHCCT Creat SerPl-mCnc 0.6 mg/dL 10/05/2024 0.4 - 1.1 HH CCT Chloride SerPl-sCnc 109.0 mmol/L Above high normal 98 - 107 H[facility]CT GFR/BSA.pred SerPlBld IPV-QAQ-WwPXvp >90.0 10/05/2024 59 - HHCCT Anion Gap Bld-sCnc 11.0 10/05/2024 7 - 17 H[facility]CT Sodium SerPl-sCnc 139.0 mmol/L 10/05/2024 136 - 14 5 HHCCT Potassium SerPl-sCnc 3.9 mmol/L 10/05/2024 3.4 - 5 .3 HHCCT CO2 SerPl-sCnc 19.0 mmol/L Below low normal 10/05/2024 22 - 33 H[facility]CT BUN/Creat SerPl 18.0 Ratio 10/05/2024 10 - 25 HH CCT Glucose SerPl-mCnc 100.0 mg/dL Above high normal 10/05/2024 65 - 99 H[facility]CT Phosphate SerPl-mCnc 3.7 mg/dL 10/05/2024 2.7 - 4. 5 H[facility]CT RDW RBC Auto-Rto 13.0 % 10/05/2024 11.5 - 14.5 HHCCT Platelet num Bld Auto 193.0 Thou/uL 10/05/2024 150 - 450 HHCCT Hgb Bld-mCnc 11.6 g/dL Below low normal 10/05/2024 11.7 - 15 .7 H[facility]CT RBC num Bld Auto 3.91 Mil/uL Below low normal 10/05/2024 4 - 5.4 HHCCT Hct VFr Bld Auto 35.7 % 10/05/2024 35 - 47 HH CCT PMV Bld Auto 9.6 fL 10/05/2024 7.5 - 12.5 HHCCT WBC num Bld Auto 8.1 Thou/uL 10/05/2024 4 - 11 H[facility]CT MCV RBC Auto 91.0 fL 10/05/2024 80 - 100 H[facility]CT MCH RBC Qn Auto 29.7 pg 10/05/2024 27 - [address] MCHC RBC Auto-mCnc 32.5 g/dL 10/05/2024 30 - 36 HHCCT Delta NO PREVIOUS RESULT 10/05/2024 - 3 HHCCT Troponin T SerPl-mCnc 7.0 ng/L 10/05/2024 - 15 HHCCT POC Glucose 156.0 mg/dL Above high normal 10/05/2024 65 - 99 HHCCT Anion Gap Bld-sCnc 8.0 10/04/2024 7 - 17 HHCCT GFR/BSA.pred SerPlBld PUP-RAA-KyESeg >90.0 10/04/2024 59 - HHCCT Chloride SerPl-sCnc 110.0 mmol/L Above high normal 98 - 107 HHCCT Calcium SerPl-mCnc 8.3 mg/dL Below low normal 10/04/2024 8.7 - 10.5 HHCCT BUN SerPl-mCnc 14.0 mg/dL 10/04/2024 8 - [address] CO2 SerPl-sCnc 23.0 mmol/L 10/04/2024 22 - 33 HH CCT Sodium SerPl-sCnc 141.0 mmol/L 10/04/2024 136 - 14 5 HHCCT Creat SerPl-mCnc 0.7 mg/dL 10/04/2024 0.4 - 1.1 HH CCT Glucose SerPl-mCnc 92.0 mg/dL 10/04/2024 65 - 99 HHCCT BUN/Creat SerPl 20.0 Ratio 10/04/2024 10 - 25 HH CCT Potassium SerPl-sCnc 4.0 mmol/L 10/04/2024 3.4 - 5 .3 HHCCT Phosphate SerPl-mCnc 4.9 mg/dL Above high normal 10/04/2024 2.7 - 4.5 HHCCT Magnesium SerPl-mCnc 2.0 mg/dL 10/04/2024 1.6 - 2. 7 HHCCT WBC num Bld Auto 4.6 Thou/uL 10/04/2024 4 - 11 HHCCT Hgb Bld-mCnc 11.6 g/dL Below low normal 10/04/2024 11.7 - 15 .7 HHCCT RBC num Bld Auto 3.83 Mil/uL Below low normal 10/04/2024 4 - 5.4 HHCCT PMV Bld Auto 10.1 fL 10/04/2024 7.5 - 12.5 HHCCT MCV RBC Auto 92.0 fL 10/04/2024 80 - 100 H[facility]CT Platelet num Bld Auto 185.0 Thou/uL 10/04/2024 150 - 450 HHCCT MCHC RBC Auto-mCnc 32.9 g/dL 10/04/2024 30 - 36 HHCCT Hct VFr Bld Auto 35.3 % 10/04/2024 35 - 47 HH CCT MCH RBC Qn Auto 30.3 pg 10/04/2024 27 - [address] RDW RBC Auto-Rto 12.7 % 10/04/2024 11.5 - 14.5 HHCCT ISTAT Activated Clotting Time,Celite 218.0 seconds Above high normal 10/05/2024 84 - 139 H HCCT ISTAT Hemoglobin 10.2 gm/dL Below low normal 10/05/2024 11.7 - 15.7 HHCCT ISTAT Hematocrit 30.0 % Below low normal 10/05/2024 35 - 47 HHCCT History of Medication Use Medication Directions Dispensed Refills Start Date End Date Stat oxyCODONE (ROXICODONE) 5 MG immediate release tablet Take 1 tablet (5 mg total) by mouth 4 times daily (every 6 hours) as needed for moderate pain. Max Daily Amount: 20 mg 10/05/2024 10/09/2024 active acetaminophen (TYLENOL) 325 MG tablet Take 3 tablets (975 mg total) by mouth 4 times daily (every 6 hours) as needed for headaches, moderate pain or fever. 10/05/2024 active senna-docusate (SENNA-S) 8.6-50 MG Take 2 tablets by mouth nightly as needed for constipation. 10/05/2024 active aspirin enteric coated (ECOTRIN LOW STRENGTH) 81 MG EC tablet Take 1 tablet (81 mg total) by mouth daily. Start medication on September 11, 2024, 3 weeks prior to procedure 09/04/2024 active ticagrelor (BRILINTA) 60 MG tablet Take 1 tablet (60 mg total) by mouth 2 (two) times a day. Start medication on September 11, 2024, 3 weeks prior to procedure 09/04/2024 active butalbital-acetaminop hen-caffeine (FioriCET, ESGIC) 50-325-40 mg tablet TAKE 1 TO 2 TABLETS BY MOUTH EVERY DAY NEEDED FOR HEADACHE 05/22/2024 active acetaminophen (TYLENOL) 500 MG tablet Take 1 tablet (500 mg total) by mouth 4 times daily (every 6 hours) as needed for headaches. active atorvastatin (LIPITOR) 40 MG tablet Take 1 tablet (40 mg total) by mouth every evening. active ezetimibe (ZeTIA) 10 MG tablet Take 1 tablet (10 mg total) by mouth. active Multiple Vitamins-Minerals (ZINC PO) Take by mouth. active riboflavin 100 MG tablet Take 1 tablet (100 mg total) by mouth every morning. active Vitamin D, Cholecalciferol, 25 MCG (1000 UT) Cap Take 1 capsule by mouth daily. active Problems Problem Status Onset Date Problem Type Date of Resoluti on Source Intracranial aneurysm active 2024-08-11 ProblemAct CCT Vertebral artery aneurysm active 2024-10-04 [facility] Encounters Encounter Type Encounter Reason Primary Diagnosis Location Date Ambulatory Follow-up Follow-up [facility] 10/19/2024 Inpatient Cerebral aneurysm, nonruptured Cerebral aneurysm, nonruptured [facility] 10/04/2024 Ambulatory Cerebral aneurysm, nonruptured Cerebral aneurysm, nonruptured [facility] 08/29/2024 Ambulatory Cerebral aneurysm, nonruptured Cerebral aneurysm, [facility] 08/11/2024 Ambulatory Cerebral aneurysm, nonruptured Cerebral aneurysm, nonruptured [facility] 07/11/2024 Ambulatory [facility] [facility] 06/15/2024 Care Team Organization Name Specialty Phone Email Start Date End Da josiah [facility] Primary Care 10/04/202408/2024 [facility] 07/26/2024 11/17/2024 [facility] Primary Care 07/11/2024 [facility] 06/15/2024
--- OUTSIDE RECORDS SUMMARY | 2025-01-23 10:59 | XMS_ITS | Encounter Summary ---
Author Organization [facility] Address [address] [place] [address] Phone Care Team Providers Care Edge Burnisher Uppers Name Role Phone Dieudonne Rios DO Primary Care Provider Dieudonne Rios DO Unavailable [phone] Ranjana Ivy MD Unavailable + [phone] Encounter Details Date Type Department Care Team (Late st Contact Info) Description 04/21/2021 Procedure Pass [address] [address] Social History Tobacco Use Types Packs/Day Years Used Date Smoking Tobacco: Never Assessed Comments No Sex and Gender Information Value Date Recorded Sex Assigned at Not on file Legal Sex Female 9:54 PM EDT Gender Identity Not on file Sexual Orientation Not on file documented as of this encounter Plan of Treatment Upcoming Encounters Date Type Department Care Team (Late st Contact Info) Description 09/06/2024 Procedure Pass [address] [address] 03/30/2025 8:30 AM EST Appointment [address] [address] Lester Osuna MD [address] [place] [address] [address] documented as of this encounter Visit Diagnoses Not on filedocumented in this encounter Care Teams Edge Burnisher Uppers Relationship Specialty Start Date End Date Dieudonne Rios DO [address] [place] [address] PCP - General 03/01/17 Dieudonne Rios DO [address] [place] [address] Historical LMR Provider 03/07/17 Ranjana Ivy MD [address] [place] [address] Historical LMR Provider 03/07/17 2 documented as of this encounter Additional Source Comments The information contained in this document represents components of the legal health record. It is not the complete legal health record.[facility]
--- OUTSIDE RECORDS SUMMARY | 2025-01-23 10:59 | XMS_ITS | Encounter Summary ---
Author Organization [facility] Address [address] [place] [address] Phone Care Team Providers Care Prosthetic Aide Name Role Phone Dieudonne Rios DO Primary Care Provider Dieudonne Rois DO Unavailable [phone] Ranjana Ivy MD Unavailable [phone] Encounter Details Date Type Department Care Team (Late st Contact Info) Description 04/06/2019 Ancillary Orders Virtual Department [address] [place] [address] Dieudonne Rios DO [address] [place] [address] Breast screening Social History Tobacco Use Types Packs/Day Years [...] st Contact Info) Description 09/06/2024 Procedure Pass [address] [address] 03/30/2025 8:30 AM EST Appointment [address] [address] Lester Osuna MD [address] [place] [address] documented as of this encounter Results * BI MAMMOGRAM SCREENING WITH TOMOSYNTHESIS WITH CAD (BILATERAL) (05/05/2019 9:35 AM EST) Anatomical Region Laterality Modality Breast Left, Breast Right, Breast Bilateral Bila teral Mammography 05/05/2019 11:3 1 AM EST Impressions 05/05/2019 11:33 AM EST No mammographic evidence of malignancy. BI-RADS CATEGORY: 1 - Negative. DENSITY: There are scattered fibroglandular densities. POS - CDHMAMA Narrative 05/05/2019 11:33 AM EST Standard digital full-field 2-D C view and two-plane tomographic imaging was performed and compared with multiple prior studies, most recently 02/21/2018, with utilization of computer-aided detection. The breasts are composed of scattered fibroglandular densities. The stromal markings are essentially unchanged in overall appearance and distribution. No dominant spiculated mass, suspicious clustered microcalcifications, or focal zone of pathologic skin thickening or retraction are noted to have arisen in the interim. Procedure Note John Chapman MD - 05/05/2019 Standard digital full-field 2-D C view and two-plane tomographic imagingwas performed and compared with multiple prior studies, most opslqfos38/08/2018, with utilization of computer-aided detection. The breasts are composed of scattered fibroglandular densities. Thestromal markings are essentially unchanged in overall appearance anddistribution. No dominant spiculated mass, suspicious clusteredmicrocalcifications, or focal zone of pathologic skin thickening orretraction are noted to have arisen in the interim. IMPRESSION: No mammographic evidence of malignancy. BI-RADS CATEGORY: 1 - Negative. DENSITY: There are scattered fibroglandular densities. POS - CDHMAMA Dieudonne Rios DO IMG MG EXAMS Final Result documented in this encounter Visit Diagnoses Diagnosis Breast screening Breast screening, unspecified Breast screening Breast screening, unspecified documented in this encounter Additional Health Concerns Infection Onset Date Last Indicated Resolved Time CoV-Exposed Comment:Recent close contact documented in the COVID-19 PCR/PRO order 06/22/2020 06/30/2020 07/17/2020 1:[address] documented as of this encounter Care Teams Prosthetic Aide Relationship Specialty Start Date End Date Dieudonne Rios DO [address] [place] [address] PCP - General 03/01/17 Dieudonne Rios DO [address] [place] [address] Historical LMR Provider 03/07/17 Ranj[facility] [place] [address] Historical LMR Provider 03/07/17 2 documented as of this encounter Additional Source Comments The information contained in this document represents components of the legal health record. It is not the complete legal health record.[facility]
--- OUTSIDE RECORDS SUMMARY | 2025-01-23 10:59 | XMS_ITS | Encounter Summary ---
Author Organization [facility] Address [address] [place] [address] Phone Care Team Providers Care Affirmative Action Officer Name Role Phone Dieudonne Rios DO Primary Care Provider [phone] Dieudonne Rios DO Unavailable Ranjana Ivy MD Unavailable [phone] Encounter Details Date Type Department Care Team (Late st Contact Info) Description 12/23/2017 Ancillary Orders Virtual Department [address] [place] [address] Dieudonne Rios DO [address] [place] [address] Breast screening Social History Tobacco Use Types Packs/Day Years Used Date Smoking Tobacco: Never Assessed Comments Unknown Sex and Gender Information Value Date Recorded Sex Assigned at Not on file Legal Sex Female 9:54 PM EDT Gender Identity Not on file Sexual Orientation Not on file documented as of this encounter Plan of Treatment Upcoming Encounters Date Type Department Care Team (Late st Contact Info) Description 09/06/2024 Procedure Pass [address] [address] 03/30/2025 8:30 AM EST Appointment [address] [address] Lester Osuna MD [address] [place] [address] documented as of this encounter Results * BI MAMMOGRAM SCREENING WITH TOMOSYNTHESIS WITH CAD (BILATERAL) (02/21/2018 8:08 AM EDT) Anatomical Region Laterality Modality Breast Left, Breast Right, Breast Bilateral Bila teral Mammography 02/21/2018 10:0 0 AM EDT Impressions 02/21/2018 10:04 AM EDT BILATERAL BREASTS: Negative, no evidence of malignancy. Normal interval follow- up is recommended in 12 months. BI-RADS CATEGORY: 1 - Negative. DENSITY: There are scattered fibroglandular densities. POS - [id number] Narrative 02/21/2018 10:04 AM EDT STUDY: Bilateral screening mammography with tomosynthesis and CAD TECHNIQUE: Bilateral full-field digital screening mammography is obtained and read in conjunction with computer-aided detection. Tomosynthesis as well as 2-D C view imaging were obtained. COMPARISON: Comparison made to multiple prior, most recent December 31, 2016, and most remote March 20, 2011. BREAST COMPOSITION: There are scattered areas of fibroglandular density BILATERAL BREASTS: No significant masses, calcifications or other abnormalities are seen. Procedure Note Bobby Malone MD - 02/21/2018 STUDY: Bilateral screening mammography with tomosynthesis and CAD TECHNIQUE: Bilateral full-field digital screening mammography is obtainedand read in conjunction with computer-aided detection. Tomosynthesis aswell as 2-D C view imaging were obtained. COMPARISON: Comparison made to multiple prior, most recent December, and most remote March 20, 2011. BREAST COMPOSITION: There are scattered areas of fibroglandulardensity BILATERAL BREASTS: No significant masses, calcifications or otherabnormalities are seen. IMPRESSION: BILATERAL BREASTS: Negative, no evidence of malignancy. Normal intervalfollow-up is recommended in 12 months. BI-RADS CATEGORY: 1 - Negative. DENSITY: There are scattered fibroglandular densities. POS - CDHMAM2 Dieudonne Rios DO IMG MG EXAMS Final Result documented in this encounter Visit Diagnoses Diagnosis Breast screening Breast screening, unspecified Breast screening Breast screening, unspecified documented in this encounter Additional Health Concerns Infection Onset Date Last Indicated Resolved Time CoV-Exposed Comment:Recent close contact documented in the COVID-19 PCR/PRO order 06/22/2020 06/30/2020 07/17/2020 1:[address] documented as of this encounter Care Teams Affirmative Action Officer Relationship Specialty Start Date End Date Dieudonne Rios DO [address] [place] [address] PCP - General 03/01/17 Dieudonne Rios DO [address] [place] [address] Historical LMR Provider 03/07/17 Ranjana Ivy MD [address] [place] [address] Historical LMR Provider 03/07/17 2 documented as of this encounter Additional Source Comments The information contained in this document represents components of the legal health record. It is not the complete legal health record.[facility]
--- OUTSIDE RECORDS SUMMARY | 2025-01-23 10:59 | XMS_ITS | Encounter Summary ---
Author Organization [facility] Address [address] [place] [address] Phone Care Team Providers Care Liquor Gallery Operator Name Role Phone Dieudonne Rios DO Primary Care Provider Dieudonne Rios DO Unavailable [phone] Encounter Details Date Type Department Care Team (Late st Contact Info) Description 04/28/[address] [address] Social History Tobacco Use Types Packs/Day Years Used Date Smoking Tobacco: Former Cigarettes 1 - 09/15/1983 Alcohol Use Standard Drinks/Week Comments Yes 2 (1 standard drink = 0.6 oz pur e alcohol) Education Answer Date Recorded Are you interested in more education? Not on leonidas e 09/11/2022 Are you concerned about learning? Not on file 09/11/2022 No 09/11/2022 No 09/11/2022 Digital Access Answer Date Recorded No 10/12/2022 No 10/12/2022 Reliable internet access at home? Not on file 10/12/2022 Device with a working camera? Not on file Comments No Sex and Gender Information Value Date Recorded Sex Assigned at Not on file Legal Sex Female 9:54 PM EDT Gender Identity Not on file Sexual Orientation Not on file documented as of this encounter Plan of Treatment Upcoming Encounters Date Type Department Care Team (Late st Contact Info) Description 09/06/2024 Procedure Pass [facility], [address] [address] 03/30/2025 8:30 AM EST Appointment [address] [address] Lester Osuna MD [address] [address] documented as of this encounter Visit Diagnoses Not on filedocumented in this encounter Care Teams Liquor Gallery Operator Relationship Specialty Start Date End Date Dieudonne Rios DO [address] [place] [address] PCP - General 03/01/17 Dieudonne Rios DO [address] [place] [address] Historical LMR Provider 03/07/17 documented as of this encounter Additional Source Comments The information contained in this document represents components of the legal health record. It is not the complete legal health record.[facility]
--- OUTSIDE RECORDS SUMMARY | 2025-01-23 10:59 | XMS_ITS | Encounter Summary ---
Author Organization [facility] Address [address] [place] [address] Care Team Providers Care Print Binding And Finishing Worker Name Role Phone Cristobal Pereira MD Unavailable Unava ilable Lester Osuna MD Primary Care Provider + Call, Tatyana Matias RN Unavailable [phone] Encounter Details Date Type Department Care Team (Late st Contact Info) Description 07/11/2024 Scanned Document [facility] NEUROSURGERY SCAN Neurosurgery, Scan Social History Tobacco Use Types Packs/Day Years Used Date Smoking Tobacco: Former Cigarettes 0.3 45.2 S tarted: 10/30/1979 Smokeless Tobacco: Never Alcohol [...] on filedocumented in this encounter Care Teams Print Binding And Finishing Worker Relationship Specialty Start Date End Date Lester Osuna MD [address] [place] [address] [place] [address] PCP - General Internal Medicine 07/11/24 Cristobal Pereira MD Referring Provider Neurology 06/07/24 Call, Tatyana Matias RN [address] [place] [address] Registered Nurse Surgery, Neurosurgery 07/13/24 documented as of this encounter
--- OUTSIDE RECORDS SUMMARY | 2025-01-23 10:59 | XMS_ITS | Encounter Summary ---
Author Organization [facility] Address [address] [place] [address] Phone Care Team Providers Care Transmission Rebuilder Name Role Phone Dieudonne Rios DO Primary Care Provider Dieudonne Rios DO Unavailable Ranjana Ivy MD Unavailable [phone] Encounter Details Date Type Department Care Team (Late st Contact Info) Description 05/08/2020 Ancillary Orders Virtual Department [address] [place] [address] Dieudonne Rios DO [address] [place] [address] Breast cancer screening by mammogram Social History Tobacco Use Types Packs/Day Years [...] st Contact Info) Description 09/06/2024 Procedure Pass [address] [address] 03/30/2025 8:30 AM EST Appointment [address] [address] Lester Osuna MD [address] [place] [address] documented as of this encounter Results * BI MAMMOGRAM SCREENING WITH TOMOSYNTHESIS WITH CAD (BILATERAL) (06/14/2020 8:50 AM EST) Anatomical Region Laterality Modality Breast Left, Breast Right, Breast Bilateral Bila teral Mammography 06/14/2020 4:10 PM EST Impressions 06/14/2020 4:13 PM EST BILATERAL BREASTS: Negative, no evidence of malignancy. Normal interval follow- up is recommended in 12 months. Bi-RADS: BI-RADS CATEGORY: 1 - Negative. DENSITY: There are scattered fibroglandular densities. Narrative 06/14/2020 4:13 PM EST STUDY: Bilateral screening mammography with tomosynthesis and CAD TECHNIQUE: Bilateral full-field digital screening mammography is obtained and read in conjunction with computer-aided detection. Tomosynthesis as well as 2-D C view imaging were obtained. COMPARISON: Comparison made to multiple prior, most recent May 05, 2019, and most remote November 10, 2013. BREAST COMPOSITION: There are scattered areas of fibroglandular density BILATERAL BREASTS: No significant masses, suspicious calcifications or other abnormalities are seen. Procedure Note Bobby Malone MD - 06/14/2020 STUDY: Bilateral screening mammography with tomosynthesis and CAD TECHNIQUE: Bilateral full-field digital screening mammography is obtainedand read in conjunction with computer-aided detection. Tomosynthesis aswell as 2-D C view imaging were obtained. COMPARISON: Comparison made to multiple prior, most recent April, and most remote November 10, 2013. BREAST COMPOSITION: There are scattered areas of fibroglandulardensity BILATERAL BREASTS: No significant masses, suspicious calcifications orother abnormalities are seen. IMPRESSION: BILATERAL BREASTS: Negative, no evidence of malignancy. Normal intervalfollow-up is recommended in 12 months. Bi-RADS: BI-RADS CATEGORY: 1 - Negative. DENSITY: There are scattered fibroglandular densities. us Dieudonne Rios DO IMG MG EXAMS Final Result documented in this encounter Visit Diagnoses Diagnosis Breast cancer screening by mammogram Breast cancer screening by mammogram documented in this encounter Additional Health Concerns Infection Onset Date Last Indicated Resolved Time CoV-Exposed Comment:Recent close contact documented in the COVID-19 PCR/PRO order 06/22/2020 06/30/2020 07/17/2020 1:[address] documented as of this encounter Care Teams Transmission Rebuilder Relationship Specialty Start Date End Date Dieudonne Rios DO [address] [place] [address] PCP - General 03/01/17 Dieudonne Rois DO [address] [place] [address] Historical LMR Provider 03/07/17 Ranjana Ivy MD [address] [place] [address] Historical LMR Provider 03/07/17 2 documented as of this encounter Additional Source Comments The information contained in this document represents components of the legal health record. It is not the complete legal health record.[facility]
--- OUTSIDE RECORDS SUMMARY | 2025-01-23 10:59 | XMS_ITS | Encounter Summary ---
Author Organization [facility] Address [address] [place] [address] Phone Care Team Providers Care Development Intern Name Role Phone Dieudonne Rios DO Primary Care Provider [phone] Dieudonne Rios DO Unavailable [phone] Encounter Details Date Type Department Care Team (Late st Contact Info) Description 06/30/2022 Procedure Pass [address] [address] Social History Tobacco Use Types Packs/Day Years [...] st Contact Info) Description 09/06/2024 Procedure Pass [address] [address] 03/30/2025 8:30 AM EST Appointment [address] [address] Lester Osuna MD [address] [place] [address] [address] documented as of this encounter Visit Diagnoses Not on filedocumented in this encounter Care Teams Development Intern Relationship Specialty Start Date End Date Dieudonne Rios DO [address] [place] [address] PCP - General 03/01/17 Dieudonne Rios DO [address] [place] [address] Historical LMR Provider 03/07/17 documented as of this encounter Additional Source Comments The information contained in this document represents components of the legal health record. It is not the complete legal health record.[facility]
--- OUTSIDE RECORDS SUMMARY | 2025-01-23 10:59 | XMS_ITS | Encounter Summary ---
Author Organization Formerly [facility] Address [address] [place] [address] Care Team Providers Care Domestic Maid Name Role Phone Cristobal Pereira MD Unavailable Unava ilable Lester Osuna MD Primary Care Provider + Call, Tatyana Matias RN Unavailable Encounter Details Date Type Department Care Team [...] on filedocumented in this encounter Care Teams Domestic Maid Relationship Specialty Start Date End Date Lester Osuna MD [address] [place] [address] PCP - General Internal Medicine 07/11/24 Cristobal Pereira MD Referring Provider Neurology 06/07/24 Call, Tatyana Matias RN [address] [place] [address] Registered Nurse Surgery, Neurosurgery 07/13/24 documented as of this encounter
--- OUTSIDE RECORDS SUMMARY | 2025-01-23 10:59 | XMS_ITS | Clinical Summary ---
Author Organization [facility] Address [address] [facility] [address] [place] [address] Phone Care Team Providers Care Pulp Grinder And Blender Name Role Phone Dieudonne Rios DO Primary Care Provider Dieudonne Rios DO Unavailable [phone] Immunizations Immunization Administration Dates Next Due COVID-19 (Pre-03/08) Pfizer Vaccine, mRNA, PF ,08/14/2020 Family History Medical History Relation Comments Breast cancer Neg Hx Social History Tobacco Use Types Packs/Day Years Used Date Smoking Tobacco: Former Cigarettes 1 - 09/15/1983 Tobacco Cessation:Counseling Given: Not Answered Alcohol Use [...] on file Sexual Orientation Not on file Last Filed Vital Signs Vital Sign Reading Time Taken Comments Blood Pressure 128/78 02/08/2012 3:40 AM EDT Pulse - - Temperature - - Respiratory Rate - - Oxygen Saturation - - Inhaled Oxygen Concentration - - Weight 69.9 kg (154 lb) 02/08/2012 3:40 AM EDT Height 172.7 cm (5' 8 ) 02/08/2012 3:40 AM EDT Body Mass Index 23.42 02/08/2012 3:40 AM EDT Plan of Treatment Upcoming Encounters Date Type Department Care Team (Late st Contact Info) Description 09/06/2024 Procedure Pass [address] [address] 03/30/2025 8:30 AM EST Appointment [address] [address] Lester Osuna MD [address] [address] Health Maintenance Due Date Last Done Comments DEPRESSION SCREENING 1967 SMOKING Hx and SMOKELESS TOBACCO SCREENING 12/07/1968 HEPATITIS C SCREENING 12/07/1973 COLOGUARD 12/07/2000 COLONOSCOPY 12/07/2000 COLORECTAL CANCER SCREENING 12/07/2000 FIT TEST 12/07/2000 FOBT 12/07/2000 SIGMOIDOSCOPY 12/07/2000 VIRTUAL COLONOSCOPY 12/07/2000 PNEUMOCOCCAL VACCINES (50+ years) (1 of 1 - PCV) 12/07/2005 ZOSTER VACCINES (2 of 3) 09/25/2016 07/31/2016 OSTEOPOROSIS SCREENING INITIAL (ONE-TIME) 12/07/2020 INFLUENZA VACCINE (#1) 2024 , 04/01/2019, 04/22/2018, Additional history exists COVID-19 VACCINE (3 - season) 2025 09/04/2020, 08/14/2020 MAMMOGRAM 10/28/2025 10/29/2023, 06/17, 06/16/2021, Additional history exists LIPID PANEL 04/21/2026 04/21/2021, 02/14, 12/07/2018 Adult Td,Tdap Booster 02/03/2027 02/03/2017, 003 RSV VACCINE (1 - 1-dose 75+ series) 12/07/2030 HEPATITIS A VACCINES Aged Out 04/22/2011, 10/02/19 11 No longer eligible based on patient's age to complete this topic HIB VACCINES Aged Out No longer eligi ble based on patient's age to complete this topic MENINGOCOCCAL VACCINES (ACWY) Aged Out No longer eligible based on patient's age to complete this topic MENINGOCOCCAL VACCINES (B) Aged Out N o longer eligible based on patient's age to complete this topic Medical Devices Not on file Procedures Procedure Name Priority Date/Time Associated Diagnosis Comments BI MAMMOGRAM SCREENING WITH TOMOSYNTHESIS WITH CAD (BILATERAL) Routine 10/29/2023 2:46 PM EDT Visit for screening mammogram LIPID PANEL Routine 04/21/2021 7:53 AM EST Routine general medical examination at a [facility] Constant low-grade dysphagia from Last 3 Months or Most Recently Relevant to Health Maintenance Results * BI MAMMOGRAM SCREENING WITH TOMOSYNTHESIS WITH CAD (BILATERAL) (10/29/2023 2:46 PM EDT) Anatomical Region Laterality Modality Breast Left, Breast Right, Breast Bilateral Bila teral Mammography 11/01/2023 12:3 9 PM EDT Impressions 11/01/2023 12:48 PM EDT No mammographic evidence of malignancy in either breast. Annual screening mammography is recommended. BI-RADS 1 NEGATIVE The patient will be notified of the results and recommendations. Narrative 11/01/2023 12:48 PM EDT BI MAMMOGRAM SCREENING WITH TOMOSYNTHESIS WITH CAD (BILATERAL) Additional patient information: Screening. COMPARISON: Comparison is made with relevant prior imaging. Breast composition: There are scattered areas of fibroglandular density. FINDINGS: No abnormal masses, suspicious calcifications, or other significant findings are identified mammographically in either breast. Procedure Note Maame Lee MD - 11/01/2023 BI MAMMOGRAM SCREENING WITH TOMOSYNTHESIS WITH CAD (BILATERAL) Additional patient information: Screening. COMPARISON: Comparison is made with relevant prior imaging. Breast composition: There are scattered areas of fibroglandular density. FINDINGS: No abnormal masses, suspicious calcifications, or other significantfindings are identified mammographically in either breast. IMPRESSION: No mammographic evidence of malignancy in either breast. Annual screening mammography is recommended. BI-RADS 1 NEGATIVE The patient will be notified of the results and recommendations. Dieudonne Rios DO IMG MG EXAMS Final Result * Lipid panel (04/21/2021 7:53 AM EST) HDL 50 mg/dL [facility] Comment: Interpretation <40 mg/dL: Low HDL cholesterol (major risk factor for CHD) Greater than or equal to 60 mg/dL: High HDL cholesterol ( negative risk factor for CHD) HDL - cholesterol is affected by a number of factors, e.g. smoking, excerise, hormones, sex and age. CHOLESTEROL 173 0 - 240 mg/dL [facility] TRIGLYCERIDES 127 30 - 160 mg/dL [facility] LDL 98 50 - 129 mg/dL [facility] Comment: LDL levels in terms of risk for coronary heart disease: <100 mg/dL: Optimal 100-129 mg/dL: Near or above optimal 130-159 mg/dL: Borderline high 160-189 mg/dL: High >190 mg/dL: Very High CARDIAC RISK RATIO 3.5 3.3 - 4.4 C [facility] Blood 04/21/2021 7:53 AM EST 04/21/2021 7:58 AM EST Dieudonne Rios DO LAB BLOOD ORDERABLES Final R esult [facility] [address] [place] [address] from Last 3 Months or Most Recently Relevant to Health Maintenance Insurance [facility] MEDEX SUPPLEMENT MEDICARE PART A & B [employer] MEDEX SUPPLEMENT MEDICARE PART A & B [employer] MEDEX SUPPLEMENT MEDICARE PART A & B [employer] MEDEX SUPPLEMENT MEDICARE PART A & B Member Subscriber Plan / Payer (Ef fective 2020-Present) Name:Mer Salinas Member ID:[id number] Relation to Subscriber:Self Name:Mer Salinas Subscriber ID:[id number] Payer ID:[id number] Group ID:Not on file Type:Medicare Address: [facility] [employer] [facility] [address] [place], [place] [id number] [employer] MEDEX SUPPLEMENT MEDICARE PART A & B [employer] MEDEX SUPPLEMENT MEDICARE PART A & B MEDICARE PART A & B [employer] MEDEX SUPPLEMENT MEDICARE PART A & B [employer] MEDEX SUPPLEMENT MEDICARE PART A & B Member Subscriber Plan / Payer ( fective 2020-) Name:Mer Salinas Member ID:[id number] Relation to Subscriber:Self Name:Mer Salinas Subscriber ID:[id number] Payer ID:[id number] Group ID:Not on file Type:Medicare Address: [facility] [employer] [facility]. [address] [place] [address] Advance Directives For more information, please contact: [phone] (9AM - 5PM [facility], Wednesday-Wednesday) Documents on File Type Date Recorded Patient Auto Electrical Technician Expl anation Healthcare Proxy 04/19/2023 2:48 PM Care Teams Pulp Grinder And Blender Relationship Specialty Start Date End Date Dieudonne Rios DO [address] [place] [address] PCP - General 03/01/17 Dieudonne Rios DO [address] [place] [address] Historical LMR Provider 03/07/17 Additional Source Comments The information contained in this document represents components of the legal health record. It is not the complete legal health record.[facility]
--- OUTSIDE RECORDS SUMMARY | 2025-01-23 10:59 | XMS_ITS | Encounter Summary ---
Author Organization [facility] Address [address] [facility] [address] [place] [address] Phone Care Team Providers Care String Laster Name Role Phone Dieudonne Rios DO Primary Care Provider Dieudonne Rios DO Unavailable Ranjana Ivy MD Unavailable [phone] Encounter Details Date Type Department Care Team (Latest Contact Info) Description 04/21/2021 Transcribe Orders Virtual Department [address] [place] [address] Dieudonne Rios DO [address] [place] [address] Breast screening (Primary Dx) Social History Tobacco Use Types [...] st Contact Info) Description 09/06/2024 Procedure Pass [address] [address] 03/30/2025 8:30 AM EST Appointment [address] [address] Lester Osuna MD [address] [place] [address] documented as of this encounter Results * BI MAMMOGRAM SCREENING WITH TOMOSYNTHESIS WITH CAD (BILATERAL) (06/16/2021 8:01 AM EST) Anatomical Region Laterality Modality Breast Left, Breast Right, Breast Bilateral Bila teral Mammography 06/16/2021 8:31 AM EST Impressions 06/16/2021 8:46 AM EST No mammographic signs of malignancy. Annual screening is recommended. BI-RADS CATEGORY: 2 - Benign finding. DENSITY: The breast tissue is almost entirely fat. Narrative 06/16/2021 8:46 AM EST Bilateral mammography is performed in conjunction with computed aided detection. 3-D tomography along with 2-D C view imaging was also performed. Comparison made to previous dated as far back as 12/05/2014 and as recent as 06/14/2020. No suspicious masses, areas of architectural distortion or suspicious microcalcifications. A few diffuse bilateral microcalcifications are stable. Procedure Note Chalino Conti MD - 06/16/2021 Bilateral mammography is performed in conjunction with computed aideddetection. 3-D tomography along with 2-D C view imaging was alsoperformed. Comparison made to previous dated as far back as 12/05/2014 andas recent as 06/14/2020. No suspicious masses, areas of architectural distortion or suspiciousmicrocalcifications. A few diffuse bilateral microcalcifications arestable. IMPRESSION: No mammographic signs of malignancy. Annual screening is recommended. BI-RADS CATEGORY: 2 - Benign finding. DENSITY: The breast tissue is almost entirely fat. Dieudonne Rios DO IMG MG EXAMS Final Result documented in this encounter Visit Diagnoses Diagnosis Breast screening- Primary Breast screening, unspecified Breast screening Breast screening, unspecified documented in this encounter Care Teams String Laster Relationship Specialty Start Date End Date Dieudonne Rios DO [address] [place] [address] PCP - General 03/01/17 Dieudonne Rios DO [address] [place] [address] Historical LMR Provider 03/07/17 Ranjana Ivy MD [address] [place] [phone] Historical LMR Provider 03/07/17 2 documented as of this encounter Additional Source Comments The information contained in this document represents components of the legal health record. It is not the complete legal health record.[facility]
--- OUTSIDE RECORDS SUMMARY | 2025-01-23 10:59 | XMS_ITS | Encounter Summary ---
Author Organization Formerly [facility] Address [address] [place] [address] Care Team Providers Care Neurosurgical Nurse Practitioner Name Role Phone Cristobal Pereira MD Unavailable Unava ilable Lester Osuna MD Primary Care Provider + Call, Tatyana Matias RN Unavailable [phone] Encounter Details Date Type Department Care Team (Late st Contact Info) Description 10/03/2024 Prep for Surgery [facility] [id number] [address] [phone] Vahe Casanova PA-C [address] [place] [address] Social History Tobacco Use Types Packs/Day Years [...] more drinks on one occasion? Never 09/19/2024 PHQ-2 Answer Date Recorded PHQ-2 Total Score 0 10/04/2024 Comments Unknown Sex and Gender Information Value Date Recorded Sex Assigned at Female 06/19/2024 10:59 AM EST Legal Sex Female 2:08 PM EST Gender Identity Female 06/19/2024 10:59 AM EST Sexual Orientation Heterosexual (straight) 08/11 9:09 AM EDT documented as of this encounter Functional Status * Question Answer Date of Assessment Author Little interest or pleasure in doing things Not at all 10/04/2024 8:11 AM EDT Gianna Blandon RN Feeling down, depressed, or hopeless Not at all 10/04/2024 8:11 AM EDT Gianna Blandon RN * Over the past 2 weeks, how often have you been bothered by any of the following problems? Question Answer Date of Assessment Author Patient Health Questionnaire -2 Score 0 10/04/2024 8:11 AM EDT Gianna Blandon RN documented as of this encounter Plan of Treatment Not on file documented as of this encounter Visit Diagnoses Not on filedocumented in this encounter Care Teams Neurosurgical Nurse Practitioner Relationship Specialty Start Date End Date Lester Osuna MD [address] [place] [address] PCP - General Internal Medicine 07/11/24 Cristobal Pereira MD Referring Provider Neurology 06/07/24 Tatyana Casas RN [address] [place] [address] Registered Nurse Surgery, Neurosurgery 07/13/24 documented as of this encounter
--- OUTSIDE RECORDS SUMMARY | 2025-01-23 10:59 | XMS_ITS | Encounter Summary ---
Author Organization [facility] Address [address] [facility] [address] [facility] [address] [place] [address] Phone Care Team Providers Care Grain Broker And Market Operator Name Role Phone Dieudonne Rios DO Primary Care Provider [phone] Dieudonne Rios DO Unavailable [phone] Ranjana Ivy MD Unavailable + [phone] Encounter Details Date Type Department Care Team (Late st Contact Info) Description 05/08/2020 Procedure Pass [address] [address] Social History Tobacco Use Types Packs/Day Years [...] st Contact Info) Description 09/06/2024 Procedure Pass [address] [address] 03/30/2025 8:30 AM EST Appointment [address] [address] Lester Osuna MD [address] [place] [address] [address] documented as of this encounter Visit Diagnoses Not on filedocumented in this encounter Additional Health Concerns Infection Onset Date Last Indicated Resolved Time CoV-Exposed Comment:Recent close contact documented in the COVID-19 PCR/PRO order 06/22/2020 06/30/2020 07/17/2020 1:[address] documented as of this encounter Care Teams Grain Broker And Market Operator Relationship Specialty Start Date End Date Dieudonne Rios DO [address] [place] [address] PCP - General 03/01/17 Dieudonne Rios DO [address] [place] [address] Historical LMR Provider 03/07/17 Ranjana Ivy MD [address] [place] [address] Historical LMR Provider 03/07/17 2 documented as of this encounter Additional Source Comments The information contained in this document represents components of the legal health record. It is not the complete legal health record.[facility]
--- OUTSIDE RECORDS SUMMARY | 2025-01-23 11:00 | XMS_ITS | Clinical Summary ---
Author Organization [facility] Address [address] [place] [address] Care Team Providers Care Regulatory Affairs Director Name Role Phone Cristobal Pereira MD Unavailable Unava ilable Lester Osuna MD Primary Care Provider + Call, Tatyana Matias RN Unavailable [phone] Allergies No known active allergies Medications [...] mg total) by mouth every evening. Active riboflavin 100 MG tablet Take 1 tablet (100 mg total) by mouth every morning. Active aspirin enteric coated (ECOTRIN LOW STRENGTH) 81 MG EC tabletIndicatio ns:Intracranial aneurysm Take 1 tablet (81 mg total) by mouth daily. Start medication on September 11, 2024, 3 weeks prior to procedure 180 tablet 5 Active senna-docusate (SENNA-S) 8.6-50 MGIndications:I ntracranial aneurysm Take 2 tablets by mouth nightly as needed for constipation. 60 tablet Active Additional Information Patient not taking.Reported on 10/19/2024 acetaminophen (TYLENOL) 325 MG tabletIndicatio ns:Intracranial aneurysm Take 3 tablets (975 mg total) by mouth 4 times daily (every 6 hours) as needed for headaches, moderate pain or fever. 84 tablet Active oxyCODONE (ROXICODONE) 5 MG immediate release tabletIndicatio ns:Intracranial aneurysm Take 1 tablet (5 mg total) by mouth 4 times daily (every 6 hours) as needed for moderate pain. Max Daily Amount: 20 mg 12 tablet Active Additional Information Patient not taking.Reported on 10/19/2024 ticagrelor (BRILINTA) 60 MG tabletIndicatio ns:Intracranial aneurysm,Verteb ral artery aneurysm Take 1 tablet (60 mg total) by mouth 2 (two) times a day. 180 tablet Active Active Problems Problem Noted Date Diagnosed Date Vertebral artery aneurysm 10/04/2024 Intracranial aneurysm 08/11/2024 Encounters Date Type Department Care Team Description 11/29/2024 Orders Only [facility] [id number] [address] [place] [phone] Vahe Casanova PA-C Intracranial aneurysm (Primary Dx); Vertebral artery aneurysm 11/29/2024 Refill [facility] [id number] [address] [place] [phone] Yodit Calderon PA Intracranial aneurysm 11/27/2024 Telephone [facility] [id number] [address] [place] [phone] Augusto, Tatyana Matias RN 11/27/2024 Orders Only [facility] [id number] [address] [place] [phone] Yodit Calderon PA Intracranial aneurysm 10/30/2024 Orders Only [facility] [id number] [address] [place] [phone] Yodit Calderon PA Intracranial aneurysm 10/30/2024 Refill [facility] [id number] [address] [place] [address] [place] [phone] Yodit Calderon PA Intracranial aneurysm from Last 3 Months Family History Medical History Relation Name Comments Dementia Father Alonso Stafford in 2019 at age of 92 Stroke Mother Paula Stafford High blood pressure, in 2020, 89 yrs, from a stroke. (Her father of a heart attack) Mom had a TIA I believe when she was in her 60 s . Relation Name Status Comments Father Alonso Stafford Mother Paula Stafford Social History Tobacco Use Types Packs/Day Years Used Date Smoking Tobacco: Former Cigarettes 0.3 45.2 S tarted: 10/30/1979 Smokeless Tobacco: Never Tobacco [...] Sign Reading Time Taken Comments Blood Pressure 150/80 10/19/2024 10:33 AM EDT Pulse 80 10/19/2024 10:33 AM EDT Temperature 36.8 C (98.2 F) 10/19/2024 10:33 AM EDT Respiratory Rate 16 10/05/2024 11:00 AM EDT Oxygen Saturation 98% 10/19/2024 10:33 AM EDT Inhaled Oxygen Concentration - - Weight 70.3 kg (155 lb) 10/19/2024 10:33 AM EDT Height 170.2 cm (5' 7 ) 10/19/2024 10:33 AM EDT Body Mass Index 24.28 10/19/2024 10:33 AM EDT Plan of Treatment Health Maintenance Due Date Last Done Comments Advance Care Planning 1955 Hepatitis C Virus Screening 1955 DTaP/Tdap/Td Vaccines (1 - Tdap) 12/07/1974 Mammogram 1995 Colonoscopy 12/07/2000 Pneumococcal Vaccines 50+ (1 of 1 - PCV) 12/07/2005 Zoster (Shingles) Vaccine (1 of 2) 12/07/2005 RSV Vaccine 60 years and older and Patients (1 - Risk 60-74 years 1-dose series) 2015 DXA Bone Density (Females,Ages 65 and older) 12/07/2020 Influenza Vaccine 12/15/2024 04/18/2015, 04/11/2013 COVID-19 Vaccine (3 - 2024-2 6 season) 2025 09/04/2020, 08/14/2020 Hepatitis B Vaccines Aged Out No long er eligible based on patient's age to complete this topic Medical Devices Implanted Type Area Clamper Device Identifier Shelf Expiration Date Model / Serial / Lot [id number] Coil Embolization Optm 9mm 30cm Complex Soft Disp Sterl Lf - [id number] Implanted:Qty: 1 on 10/05/2024 by Richmond Adams MD at [facility] Coil Left: Brain XambalaT Encore[employer]fm [facility] 08/09/2029 [id number] / / [id number] Device Embolization 20mm 4.75mm Pipeline Flex Brd Soft Dist - [id number] Implanted:Qty: 1 on 10/04/2024 by Richmond Adams MD at [facility] Stent Left: Brain MEDTRONIC MINIMALLY INVASIVE T [id number] 02/15/2027 [id number]- 20 / / [id number] Device Closure Angsl Vip Bondek-Plus 6fr .035in 70cm Implanted:Qty: 1 on 10/04/2024 by Richmond Adams MD at [facility] Left: Brain Omada WOODROW - DIV TERU [id number] / / Description:ENTERED FOR REBECCA GING PURPOSES UNDER IMPLANTS. ENTERED UNDER SUPPLIES FOR INVENTORY TO DECREMENT. Guidewire Vascular Graham 14 Hydrophilic 30 Cm L46 Cm 10 Implanted:Qty: 2 on 10/04/2024 by Richmond Adams MD at [facility] Left: Brain UNKNOWN [id number] / / Description:ENTERED FOR REBECCA GING PURPOSES UNDER IMPLANTS. ENTERED UNDER SUPPLIES FOR INVENTORY TO DECREMENT. Sheath Intro Bllst .1-.106in .088in 80cm Long Soft Coil Dist Implanted:Qty: 1 on 10/04/2024 by Richmond Adams MD at [facility] Left: Brain [employer] [id number] / / Description:ENTERED FOR REBECCA GING PURPOSES UNDER IMPLANTS. ENTERED UNDER SUPPLIES FOR INVENTORY TO DECREMENT. Microcatheter Crbrvasc 15cm .036-.04in .027in Phenom Rnd Implanted:Qty: 1 on 10/04/2024 by Richmond Adams MD at [facility] Left: Brain Medtronic [id number] / / Description:ENTERED FOR REBECCA GING PURPOSES UNDER IMPLANTS. ENTERED UNDER SUPPLIES FOR INVENTORY TO DECREMENT. Microcatheter Infusion Headway Duo 1.6-2.1fr 156cm Straight Implanted:Qty: 1 on 10/04/2024 by Richmond Adams MD at [facility] Left: Brain UNKNOWN [id number] / / Description:ENTERED FOR REBECCA GING PURPOSES UNDER IMPLANTS. ENTERED UNDER SUPPLIES FOR INVENTORY TO DECREMENT. Catheter Aspiration Cereglide 71 .082in .071in 115cm Plmr Implanted:Qty: 1 on 10/04/2024 by Richmond Adams MD at [facility] Left: Brain frents CAR [id number] / / Description:ENTERED FOR REBECCA GING PURPOSES UNDER IMPLANTS. ENTERED UNDER SUPPLIES FOR INVENTORY TO DECREMENT. Insurance [facility] MEDICARE PART A & B Advance Directives * Full Code (Latest Code Status on File) Date Activated Date Inactivated Comments 10/04/2024 11:48 AM * Full Code Date Activated Date Inactivated Comments 10/04/2024 7:58 AM 10/04/2024 11:48 AM * Full Code Date Activated Date Inactivated Comments 08/11/2024 9:19 AM 10/04/2024 7:15 AM Care Teams Regulatory Affairs Director Relationship Specialty Start Date End Date Lester Osuna MD [address] [place] [address] PCP - General Internal Medicine 07/11/24 Cristobal Pereira MD Referring Provider Neurology 06/07/24 Tatyana Casas RN [address] [place] [address] Registered Nurse Surgery, Neurosurgery 07/13/24
== END 2025-01-23 10:13 | disposition home or self-care (01) ==
LOC: HO.HMCSH 09:32
PROVIDERS: PCP Internal Medicine; Visit Provider Internal Medicine
DX: E78.5 Hyperlipidemia, unspecified (principal)

== ENCOUNTER → 2025-01-23 09:32 | Outpatient (BNVA) | payer MEDICARE, SELFPAY | PROVIDERS: PCP Internal Medicine; Visit Provider Internal Medicine | DX: M25.561 Pain in right knee (principal); M25.562 Pain in left knee; G43.909 Migraine, unspecified, not intractable, without status migrainosus; E78.5 Hyperlipidemia, unspecified | CPT/HCPCS: 96127; 99212 ==

== ENCOUNTER 2025-02-06 08:13 | Outpatient (AMB) | payer MEDICARE, SELFPAY ==
--- NOTE | 2025-02-06 08:16 | MHC.PC.OV ---
Vital Signs 02/06/25 08:23 Height 5 ft 7.25 in Weight 149 lb 0.6 oz BMI 23.2 BP 122/62 Blood Pressure Location Rt brachial Pulse 61 Temp 97.2 F Pulse Oximetry (%) 98 Intake Visit Reasons: 2 week follow up BP check Intake Note: no issues Allergies No Known Allergies Allergy (Verified 02/06/25 08:16) Tobacco use date assessed: 01/23/25 Dental Screening Dental Screen Date: 09/18/24 [facility] Medical History Aneurysm of left vertebral artery Pre-operative clearance Cerebral aneurysm Urinary incontinence Elevated cholesterol CAD (coronary artery disease) Abnormal stress ECG with treadmill Surgical History History of esophagogastroduodenoscopy (EGD) H/O colonoscopy (~12/06/23) Family History Father No problems noted. Mother Stroke Brother Carotid stenosis Social History Housing: House Alcohol intake: current Alcohol intake frequency: a few times a week Patient Tobacco Use Status: Former Tobacco user Years Smoked: 8 +/- service: No Current occupational status: retired Cognitive needs: No Hearing needs: No Vision needs: Yes (rx glasses) Questionnaire PHQ-9 Over the last 2 weeks, how often have you been bothered by any of the following problems? 1. Little interest or pleasure in doing things: not at all 2. Feeling down, depressed, or hopeless: not at all 3. Trouble falling or staying asleep, or sleeping too much: not at all 4. Feeling tired or having little energy: not at all 5. Poor appetite or overeating: not at all 6. Feeling bad about yourself - or that you are a failure or have let yourself or your family down: not at all 7. Trouble concentrating on things, such as reading the newspaper or watching television: not at all 8. Moving or speaking so slowly that other people could have noticed. Or the opposite - being so fidgety or restless that you have been moving around a lot more than usual: not at all 9. Thoughts that you would be better off or of hurting yourself in some way: not at all Total score: 0 Depression Screening Interpretation: Negative Depression Screening Done: Yes 24781 - PHQ-9 Billing: Yes Source: Developed by Drs. Dieudonne Garcia, Jenny Sanchez, Bandar Sandoval and colleagues, with an educational bam from [employer]. Thrive Questionnaire Date Thrive assessed: 09/18/24 I am a: Patient What is your living situation today?: I have a steady place to live Within the past 12 months, did the food you bought not last and you didn't have the money to get more?: Never true Within the past 12 months, did you worry whether your food would run out before you got money to buy more?: Never true Do you have trouble paying for medicines?: No Do you have trouble getting transportation to medical appointments?: No Do you have trouble paying your heating and electricity bill?: No Do you have trouble taking care of your child, family member or friend?: No Do you have trouble with day-to-day activities such as bathing, preparing meals, shopping, managing finances, etc.?: No Are you currently unemployed and looking for a job?: No Are you interested in more education?: No Please select the resources that you would like help with: None THRIVE Score: 0 AUDIT C Alcohol Use Questionnaire (AUDIT-C) 1. How often do you have a drink containing alcohol?: 2-3 times a week 2. How many drinks containing alcohol do you have on a typical day when you are drinking?: 1 or 2 3. How often do you have six or more drinks on one occasion?: Never Total Score: 3 Score Reviewed/Action Taken: No MAGGIE-7 AMB Questionnaire MAGGIE-7 Date MAGIGE - 7 assessed: 09/18/24 Feeling nervous, anxious, or on edge: 0 = Not at all Not being able to stop or control worryin = Not at all Worrying too much about different things: 0 = Not at all Trouble relaxin = Not at all Being so restless that it is hard to sit still: 0 = Not at all Becoming easily annoyed or irritable: 0 = Not at all Feeling afraid as if something awful might happen: 0 = Not at all Total MAGGIE-7 score (0-4 normal; 5-9 mild; 10-14 moderate; 15-21 severe): 0 Source: Developed by Drs. Dieudonne Garcia, Jenny Sanchez, Bandar Sandoval and colleagues, with an educational bam from [employer]. MAGGIE-7 Assessment Billing MAGGIE-7 Assessment Tool: MAGGIE-7 Assessment 39889 Physical exam (Primary Care) Vital Signs: Last Vital Signs Temp 97.2 F 02/06/25 08:23 Pulse 61 02/06/25 08:23 BP 122/62 02/06/25 08:23 Pulse Ox 98 02/06/25 08:23 BMI result Body Mass Index 23.2 Tobacco/Smoking Status: Tobacco use Status Tobacco use date assessed 01/23/25 02/06/25 08:20 Patient Tobacco Use Status Former Tobacco user 02/06/25 08:20 Tobacco use type 01/05/25 10:16 PHQ-9: PHQ-9 Score PHQ-9: Total score 0 02/06/25 08:20 Depression Screening Interpretation: Negative Thrive Assessment: Date of Thrive Assessment Date Thrive assessed 09/18/24 02/06/25 08:20 Coding Level of Care Code Est Pt Level 4 (71040) Complex EM visit Add On G2211 Diagnoses Hyperlipidemia E78.5 Cerebral aneurysm I67.1 Additional Codes MAGGIE-7 Assessment Billing - MAGGIE-7 Assessment Tool: MAGGIE-7 Assessment 92272 ([id number]) PHQ-9 - 63279 - PHQ-9 Billing: Yes ([id number]) Assessment & Plan Assessment & Plan (1) Hyperlipidemia: Code(s): E78.5 - Hyperlipidemia, unspecified Category: Medical Plan: BW revd. Continue the same two anti lipid medications (2) Cerebral aneurysm: Code(s): I67.1 - Cerebral aneurysm, nonruptured Category: Medical Plan: Pt has an appt with the neurosurgeon in february Plan Patient sees a neurologist for headaches. History of Present Illness - The patient is a 69-year-old female presenting with hypertension and headaches. - Hypertension: Initially elevated blood pressure readings led to a follow-up visit. Home monitoring shows improvement with recent readings of 108/66 mmHg, 113/83 mmHg, and 135/80 mmHg. - Headaches: Described as pressure-like, non-debilitating, with occasional morning occurrences linked to poor sleep. An ocular migraine episode lasted about 30 minutes. - Intracranial aneurysm: Previously treated with a stent and coil, with a follow-up scheduled in March. - Coronary artery disease: Managed with Brilinta for platelet function due to the aneurysm, under the care of Dr. Woods. - Preventative care: Scheduled for a bone scan and mammogram in March, with a colonoscopy up to date. Social History Review of Systems - Neurological: Reports headaches characterized by pressure, occasional ocular migraines lasting about 30 minutes. Denies debilitating pain. - Cardiovascular: Reports improved blood pressure readings at home. Denies need for medication adjustment. Physical Exam General: Cooperative and healthy appearing Nutritional Appearance: Well nourished Orientation/consciousness: Patient oriented x3 Limitations: No limitations Head: Normal to inspection General: Appearance normal, both eyes and all related structures Neck: Normal visual inspection Chest: Normal palpation of entire chest wall Respiratory: N ormal respiratory effort Neurology: Patient oriented x3, reports occasional headaches described as pressure, not debilitating. Recently experienced an ocular migraine lasting about half an hour. Follow-up with Dr. Bhagat for headache management scheduled for February 27. Results Plan - Continue home blood pressure monitoring; recent readings show improvement. - Follow up with Dr. Bhagat on February 27 for headache management. - Maintain Brilinta regimen for coronary artery disease and aneurysm management. - Follow up with Dr. Adams in March for aneurysm evaluation and possible angiography. - Complete scheduled bone scan and mammogram in March. Discussion Notes During the visit, we discussed the patient's current management of hypertension and the improvement in blood pressure readings. I advised continuing home monitoring. We also reviewed the patient's headache symptoms and planned a follow-up with Dr. Bhagat for further management. The patient is to maintain the current Brilinta regimen for coronary artery disease and aneurysm management. Follow-up appointments with Dr. Adams for aneurysm evaluation and scheduled preventative screenings were confirmed. Patient Instructions - Continue monitoring your blood pressure at home and record the readings. - Attend your appointment with Dr. Bhagat on February 27 to discuss headaches. - Keep taking Brilinta as prescribed for your heart and aneurysm. - Follow up with Dr. Adams in March for your aneurysm check-up. - Complete your bone scan and mammogram in March.
[2025-02-06 08:23] VITALS: BP 122/62; PULSE 61; TEMP 36.2; O2SAT 98; BMI 23.2
--- OUTSIDE RECORDS SUMMARY | 2025-02-06 09:04 | XMS_ITS | Encounter Summary ---
Author Organization [facility] Address [address] [place] [address] Phone Care Team Providers Care District Fire Management Officer Name Role Phone Dieudonne Rios DO Primary Care Provider Dieudonne Rios DO Unavailable Ranjana Ivy MD Unavailable [phone] Encounter Details Date Type Department Care Team (Late st Contact Info) Description 04/06/2019 Ancillary Orders Virtual Department [address] [place] [address] Dieudonne Rios DO [address] [place] [address] Breast screening Social History Tobacco Use Types [...] st Contact Info) Description 09/06/2024 Procedure Pass [address] [address] 03/30/2025 8:30 AM EST Appointment [address] [address] Lester Osuna MD [address] [place] [address] documented as of this encounter Results * [...] and compared with multiple prior studies, most sspeggwl50/08/2018, with utilization of computer-aided detection. The breasts [...] documented as of this encounter Care Teams District Fire Management Officer Relationship Specialty Start Date End Date Dieudonne Rios DO [address] [place] [address] PCP - General 03/01/17 Dieudonne Rios DO [address] [place] [address] Historical LMR Provider 03/07/17 Ranjana Ivy [facility] [place] [address] Historical LMR Provider 03/07/17 2 documented as of this encounter Additional Source Comments The information contained in this document represents components of the legal health record. It is not the complete legal health record.[facility]
--- OUTSIDE RECORDS SUMMARY | 2025-02-06 09:04 | XMS_ITS | Encounter Summary ---
Author Organization [facility] Address [address] [place] [address] Care Team Providers Care Brewer Helper Name Role Phone Cristobal Pereira MD Unavailable Unava ilable Lester Osuna MD Primary Care Provider + Call, Tatyana Matias RN Unavailable [phone] Encounter Details Date Type Department Care Team (Late st Contact Info) Description 08/29/2024 Scanned Document [facility] NEUROSURGERY SCAN Neurosurgery, Scan Social History Tobacco Use Types Packs/Day Years Used Date Smoking Tobacco: Former Cigarettes 0.3 45.3 S tarted: 10/30/1979 Smokeless Tobacco: Never Alcohol [...] on filedocumented in this encounter Care Teams Brewer Helper Relationship Specialty Start Date End Date Lester Osuna MD [address] [place] [address] PCP - General Internal Medicine 07/11/24 Cristobal Pereira MD Referring Provider Neurology 06/07/24 Call, Tatyana Matias RN [address] [place] [address] Registered Nurse Surgery, Neurosurgery 07/13/24 documented as of this encounter
--- OUTSIDE RECORDS SUMMARY | 2025-02-06 09:04 | XMS_ITS | Encounter Summary ---
Author Organization [facility] Address [address] [place] [address] Phone Care Team Providers Care Mergers And Acquisitions Consultant Name Role Phone Dieudonne Rios DO Primary Care Provider [phone] Dieudonne Rios DO Unavailable [phone] Encounter Details Date Type Department Care Team (Late st Contact Info) Description 06/30/2022 Procedure Pass [address] [address] Social History Tobacco Use Types Packs/Day Years [...] st Contact Info) Description 09/06/2024 Procedure Pass [address] [address] 03/30/2025 8:30 AM EST Appointment [address] [address] Lester Osuna MD [address] [place] [address] [address] documented as of this encounter Visit Diagnoses Not on filedocumented in this encounter Care Teams Mergers And Acquisitions Consultant Relationship Specialty Start Date End Date Dieudonne Rios DO [address] [place] [address] PCP - General 03/01/17 Dieudonne Rios DO [address] [place] [address] Historical LMR Provider 03/07/17 documented as of this encounter Additional Source Comments The information contained in this document represents components of the legal health record. It is not the complete legal health record.[facility]
--- OUTSIDE RECORDS SUMMARY | 2025-02-06 09:04 | XMS_ITS | Encounter Summary ---
Author Organization [facility] Address [address] [place] [address] Phone Care Team Providers Care Social Media Editor Name Role Phone Dieudonne Rios DO Primary Care Provider [phone] Dieudonne Rios DO Unavailable [phone] Ranjana Ivy MD Unavailable + [phone] Encounter Details Date Type Department Care Team (Late st Contact Info) Description 05/08/2020 Procedure Pass [address] [address] Social History Tobacco Use Types Packs/Day Years [...] st Contact Info) Description 09/06/2024 Procedure Pass [address] [address] 03/30/2025 8:30 AM EST Appointment [address] [address] Lester Osuna MD [address] [place] [address] [address] documented as of this encounter Visit Diagnoses Not on filedocumented in this encounter Additional Health Concerns Infection Onset Date Last Indicated Resolved Time CoV-Exposed Comment:Recent close contact documented in the COVID-19 PCR/PRO order 06/22/2020 06/30/2020 07/17/2020 1:[address] documented as of this encounter Care Teams Social Media Editor Relationship Specialty Start Date End Date Dieudonne Rios DO [address] [place] [address] PCP - General 03/01/17 Dieudonne Rios DO [address] [place] [address] Historical LMR Provider 03/07/17 Ranjana Ivy MD [address] [place] [address] Historical LMR Provider 03/07/17 2 documented as of this encounter Additional Source Comments The information contained in this document represents components of the legal health record. It is not the complete legal health record.[facility]
--- OUTSIDE RECORDS SUMMARY | 2025-02-06 09:04 | XMS_ITS | Encounter Summary ---
Author Organization [facility] Address [address] [place] [address] Phone Care Team Providers Care Teacher Early Childhood Development Name Role Phone Dieudonne Rios DO Primary Care Provider [phone] Dieudonne Rios DO Unavailable [phone] Encounter Details Date Type Department Care Team (Late st Contact Info) Description 04/28/[address] [address] Social History Tobacco Use Types Packs/Day Years [...] st Contact Info) Description 09/06/2024 Procedure Pass [facility], [address] [address] 03/30/2025 8:30 AM EST Appointment [address] [address] Lester Osuna MD [address] [facility] [address] documented as of this encounter Visit Diagnoses Not on filedocumented in this encounter Care Teams Teacher Early Childhood Development Relationship Specialty Start Date End Date Dieudonne Rios DO [address] [place] [address] PCP - General 03/01/17 Dieudonne Rios DO [address] [place] [address] Historical LMR Provider 03/07/17 documented as of this encounter Additional Source Comments The information contained in this document represents components of the legal health record. It is not the complete legal health record.[facility]
--- OUTSIDE RECORDS SUMMARY | 2025-02-06 09:04 | XMS_ITS | Encounter Summary ---
Author Organization [facility] Address [address] [place] [address] Phone Care Team Providers Care Dermatological Surgeon Name Role Phone Dieudonne Rios DO Primary Care Provider Dieudonne Rios DO Unavailable [phone] Ranjana Ivy MD Unavailable Encounter Details Date Type Department Care Team (Late st Contact Info) Description 04/21/2021 Procedure Pass [address] [address] Social History Tobacco Use Types Packs/Day Years [...] st Contact Info) Description 09/06/2024 Procedure Pass [address] [address] 03/30/2025 8:30 AM EST Appointment [address] [address] Lester Osuna MD [address] [place] [address] [address] documented as of this encounter Visit Diagnoses Not on filedocumented in this encounter Care Teams Dermatological Surgeon Relationship Specialty Start Date End Date Dieudonne Rios DO [address] [place] [address] PCP - General 03/01/17 Dieudonne Rios DO [address] [place] [address] Historical LMR Provider 03/07/17 Ranjana Ivy MD [address] [place] [address] Historical LMR Provider 03/07/17 2 documented as of this encounter Additional Source Comments The information contained in this document represents components of the legal health record. It is not the complete legal health record.[facility]
--- OUTSIDE RECORDS SUMMARY | 2025-02-06 09:04 | XMS_ITS | Encounter Summary ---
Author Organization [facility] Address [address] [place] [address] Care Team Providers Care Lactation Nurse Name Role Phone Cristobal Pereira MD Unavailable Unava ilable Lester Osuna MD Primary Care Provider + Call, Tatyana Matias RN Unavailable [phone] Encounter Details Date Type Department Care Team (Late st Contact Info) Description 10/03/2024 Prep for Surgery [facility] NEUROSRG [id number] [address] [address] Vahe Casanova PA-C [address] [place] [address] Social History Tobacco Use Types Packs/Day [...] on filedocumented in this encounter Care Teams Lactation Nurse Relationship Specialty Start Date End Date Lester Osuna MD [address] [place] [address] PCP - General Internal Medicine 07/11/24 Cristobal Pereira MD Referring Provider Neurology 06/07/24 Tatyana Casas RN [address] [place] [address] Registered Nurse Surgery, Neurosurgery 07/13/24 documented as of this encounter
--- OUTSIDE RECORDS SUMMARY | 2025-02-06 09:04 | XMS_ITS | Encounter Summary ---
Author Organization [facility] Address [address] [facility] [address] [place] [address] Phone Care Team Providers Care Chute Tender Name Role Phone Dieudonne Rios DO Primary Care Provider [phone] Dieudonne Rios DO Unavailable [phone] Ranjana Ivy MD Unavailable [phone] Encounter Details Date Type Department Care Team (Latest Contact Info) Description 04/21/2021 Transcribe Orders Virtual Department [address] [place] [address] Dieudonne Rios DO [address] [place] [address] Breast screening (Primary Dx) Social History Tobacco [...] st Contact Info) Description 09/06/2024 Procedure Pass [address] [address] 03/30/2025 8:30 AM EST Appointment [address] [address] Lester Osuna MD [address] [place] [address] documented as of this encounter Results * [...] unspecified documented in this encounter Care Teams Chute Tender Relationship Specialty Start Date End Date Dieudonne Rios DO [address] [place] [address] PCP - General 03/01/17 Dieudonne Rios DO [address] [place] [address] Historical LMR Provider 03/07/17 Ranjana Ivy MD [address] [place] [address] Historical LMR Provider 03/07/17 2 documented as of this encounter Additional Source Comments The information contained in this document represents components of the legal health record. It is not the complete legal health record.[facility]
--- OUTSIDE RECORDS SUMMARY | 2025-02-06 09:04 | XMS_ITS | Encounter Summary ---
Author Organization [facility] Address [address] [facility] [address] [place] [address] Phone Care Team Providers Care Show Host Or Hostess Name Role Phone Dieudonne Rios DO Primary Care Provider [phone] Dieudonne Rios DO Unavailable [phone] Ranjana Ivy MD Unavailable [phone] Encounter Details Date Type Department Care Team (Late st Contact Info) Description 05/08/2020 Ancillary Orders Virtual Department [address] [place] [address] Dieudonne Rios DO [address] [place] [address] Breast cancer screening by mammogram Social History [...] st Contact Info) Description 09/06/2024 Procedure Pass [address] [address] 03/30/2025 8:30 AM EST Appointment [address] [address] Lester Osuna MD [address] [place] [address] documented as of this encounter Results * [...] documented as of this encounter Care Teams Show Host Or Hostess Relationship Specialty Start Date End Date Dieudonne Rios DO [address] [place] [address] PCP - General 03/01/17 Dieudonne Rios DO [address] [place] [address] Historical LMR Provider 03/07/17 Ranjana Ivy MD [address] [place] [address] Historical LMR Provider 03/07/17 2 documented as of this encounter Additional Source Comments The information contained in this document represents components of the legal health record. It is not the complete legal health record.[facility]
--- OUTSIDE RECORDS SUMMARY | 2025-02-06 09:04 | XMS_ITS | Encounter Summary ---
Author Organization [facility] Address [address] [place] [address] Phone Care Team Providers Care Coremaking Supervisor Name Role Phone Dieudonne Rios DO Primary Care Provider Dieudonne Rios DO Unavailable [phone] Ranjana Ivy MD Unavailable [phone] Encounter Details Date Type Department Care Team (Late st Contact Info) Description 12/23/2017 Ancillary Orders Virtual Department [address] [place] [address] Dieudonne Rios DO [address] [place] [address] Breast screening Social History Tobacco Use Types [...] st Contact Info) Description 09/06/2024 Procedure Pass [address] [address] 03/30/2025 8:30 AM EST Appointment [address] [address] Lester Osuna MD [address] [place] [address] documented as of this encounter Results * [...] documented as of this encounter Care Teams Coremaking Supervisor Relationship Specialty Start Date End Date Dieudonne Rios DO [address] [place] [address] PCP - General 03/01/17 Dieudonne Rios DO [address] [place] [address] Historical LMR Provider 03/07/17 Ranjana Ivy MD [address] [place] [address] Historical LMR Provider 03/07/17 2 documented as of this encounter Additional Source Comments The information contained in this document represents components of the legal health record. It is not the complete legal health record.[facility]
--- OUTSIDE RECORDS SUMMARY | 2025-02-06 09:05 | XMS_ITS | Encounter Summary ---
Author Organization [facility] Address [address] [place] [address] Care Team Providers Care Mechanical Assembly Technician Name Role Phone Cristobal Pereira MD Unavailable Unava ilable Lester Osuna MD Primary Care Provider + Call, Tatyana Matias RN Unavailable [phone] Encounter Details Date Type Department Care Team (Late st Contact Info) Description 07/11/2024 Scanned Document [facility] NEUROSURGERY SCAN Neurosurgery, Scan Social History Tobacco [...] on filedocumented in this encounter Care Teams Mechanical Assembly Technician Relationship Specialty Start Date End Date Lester Osuna MD [address] [place] [address] [place] [address] PCP - General Internal Medicine 07/11/24 Cristobal Pereira MD Referring Provider Neurology 06/07/24 Call, Tatyana Matias RN [address] [place] [address] Registered Nurse Surgery, Neurosurgery 07/13/24 documented as of this encounter
--- OUTSIDE RECORDS SUMMARY | 2025-02-06 09:05 | XMS_ITS | Clinical Summary ---
Author Organization [facility] Address [address] [place] [address] Care Team Providers Care Food Science Professor Name Role Phone Cristobal Pereira MD Unavailable Unava ilable Lester Osuna MD Primary Care Provider + Call, Tatyana Matias RN Unavailable [phone] Allergies No known active allergies Medications [...] Team Description 11/29/2024 Orders Only [facility] [id number] [address] [place] [phone] Vahe Casanova PA-C Intracranial aneurysm (Primary Dx); Vertebral artery aneurysm 11/29/2024 Refill [facility] [id number] [address] [place] [phone] Yodit Calderon PA Intracranial aneurysm 11/27/2024 Telephone [facility] [id number] [address] [place] [phone] Call, Tatyana Matias RN 11/27/2024 Orders Only [facility] [id number] [address] [place] [phone] Yodit Calderon PA Intracranial aneurysm from Last [...] 45.3 S tarted: 10/30/1979 Smokeless Tobacco: Never Tobacco [...] this topic Medical Devices Implanted Type Area Delphi Developer Device Identifier Shelf Expiration Date Model / Serial / Lot [id number] Coil Embolization Optm 9mm 30cm Complex Soft Disp Sterl Lf - [id number] Implanted:Qty: 1 on 10/05/2024 by Richmond Adams MD at [facility] Coil Left: Brain [email or web address] 08/09/2029 [id number] / / [id number] Device Embolization 20mm 4.75mm Pipeline Flex Brd Soft Dist - [id number] Implanted:Qty: 1 on 10/04/2024 by Richmond Adams MD at [facility] Stent Left: Brain MED[employer] MINIMALLY INVASIVE T [id number] 02/15/2027 [id number] / / [id number] Device Closure Angsl Vip Bondek-Plus 6fr .035in 70cm Implanted:Qty: 1 on 10/04/2024 by Richmond Adams MD at [facility] Left: Brain TERUM[employer] - DIV TERU [id number] / / Description:ENTERED FOR REBECCA GING PURPOSES UNDER IMPLANTS. ENTERED UNDER SUPPLIES FOR INVENTORY TO DECREMENT. Guidewire Vascular Graham 14 Hydrophilic 30 Cm L46 Cm 10 Implanted:Qty: 2 on 10/04/2024 by Richmond Adams MD at [facility] Left: Brain UNKNOWN [id number] / / Description:ENTERED FOR REBECCA GING PURPOSES UNDER IMPLANTS. ENTERED UNDER SUPPLIES FOR INVENTORY TO DECREMENT. Sheath Intro Bllst .1-.106in .088in 80cm Long Soft Coil Dist Implanted:Qty: 1 on 10/04/2024 by Richmond Adams MD at [facility] Left: Brain [employer] [id number] / / Description:ENTERED FOR REBECCA GING PURPOSES UNDER IMPLANTS. ENTERED UNDER SUPPLIES FOR INVENTORY TO DECREMENT. Microcatheter Crbrvasc 15cm .036-.04in .027in Phenom Rnd Implanted:Qty: 1 on 10/04/2024 by Richmond Adams MD at [facility] Left: Brain Medtronic [id number] / / Description:ENTERED FOR REBECCA GING PURPOSES UNDER IMPLANTS. ENTERED UNDER SUPPLIES FOR INVENTORY TO DECREMENT. Microcatheter Infusion Headway Duo 1.6-2.1fr 156cm Straight Implanted:Qty: 1 on 10/04/2024 by Richmond Adams MD at [facility] Left: Brain UNKNOWN [id number] / / Description:ENTERED FOR REBECCA GING PURPOSES UNDER IMPLANTS. ENTERED UNDER SUPPLIES FOR INVENTORY TO DECREMENT. Catheter Aspiration Cereglide 71 .082in .071in 115cm Plmr Implanted:Qty: 1 on 10/04/2024 by Richmond Adams MD at [facility] Left: Brain Grokker CAR [id number] / / Description:ENTERED FOR REBECCA GING PURPOSES UNDER IMPLANTS. ENTERED UNDER SUPPLIES FOR INVENTORY TO DECREMENT. Insurance [facility] MEDIC[facility] PART A & B Advance Directives * Full Code (Latest Code Status on File) Date Activated Date Inactivated Comments 10/04/2024 11:48 AM * Full Code Date Activated Date Inactivated Comments 10/04/2024 7:58 AM 10/04/2024 11:48 AM * Full Code Date Activated Date Inactivated Comments 08/11/2024 9:19 AM 10/04/2024 7:15 AM Care Teams Food Science Professor Relationship Specialty Start Date End Date Lester Osuna MD [address] [place] [address] PCP - General Internal Medicine 07/11/24 Cristobal Pereira MD Referring Provider Neurology 06/07/24 Call, Tatyana Matias RN [address] [place] [address] Registered Nurse Surgery, Neurosurgery 07/13/24
--- OUTSIDE RECORDS SUMMARY | 2025-02-06 09:05 | XMS_ITS | Clinical Summary ---
Author Organization [facility] Address [address] [place] [address] Phone Care Team Providers Care Stone Setter Name Role Phone Dieudonne Rios DO Primary Care Provider [phone] Dieudonne Rios DO Unavailable [phone] Immunizations Immunization Administration Dates Next Due COVID-19 [...] Description 09/06/2024 Procedure Pass [address] [address] 03/30/2025 8:30 AM EST Appointment [address] [address] Lester Osuna MD [address] [address] Health Maintenance Due Date Last Done Comments [...] EST Routine general medical examination at a [facility] Constant low-grade dysphagia from Last 3 [...] (04/21/2021 7:53 AM EST) HDL 50 mg/dL [facility] Comment: Interpretation <40 mg/dL: Low HDL cholesterol (major risk factor for CHD) Greater than or equal to 60 mg/dL: High HDL cholesterol ( negative risk factor for CHD) HDL - cholesterol is affected by a number of factors, e.g. smoking, excerise, hormones, sex and age. CHOLESTEROL 173 0 - 240 mg/dL [facility] TRIGLYCERIDES 127 30 - 160 mg/dL [facility] LDL 98 50 - 129 mg/dL [facility] Comment: LDL levels in terms of risk for coronary heart disease: <100 mg/dL: Optimal 100-129 mg/dL: Near or above optimal 130-159 mg/dL: Borderline high 160-189 mg/dL: High >190 mg/dL: Very High CARDIAC RISK RATIO 3.5 3.3 - 4.4 C [facility] Blood 04/21/2021 7:53 AM EST 04/21/2021 7:58 AM EST Dieudonne Rios DO LAB BLOOD ORDERABLES Final R esult [facility] [address] [place] [address] from Last 3 Months or Most Recently Relevant to Health Maintenance Insurance [facility] MEDEX SUPPLEMENT MEDICARE PART A & B Member Subscriber Plan / Payer ( fective 2020-) Name:eMr Salinas Member ID:[id number] Relation to Subscriber:Self Name:Mer Salinas Subscriber ID:[id number] Payer ID:[id number] Group ID:Not on file Type:Medicare Address: [facility] [address] [employer] MEDEX SUPPLEMENT MEDICARE PART A & B Member Subscriber Plan / Payer ( fective 2020-) Name:Sary Mer Member ID:[id number] Relation to Subscriber:Self Name:Mer Salinas Subscriber ID:[id number] Payer ID:[id number] Group ID:Not on file Type:Medicare Address: [facility] [address] [place] [place] [address] [employer] MEDEX SUPPLEMENT MEDICARE PART A & B [employer] MEDEX SUPPLEMENT MEDICARE PART A & B Member Subscriber Plan / Payer (Ef fective 2020-Present) Name:Mer Salinas Member ID:[id number] Relation to Subscriber:Self Name:Mer Salinas Subscriber ID:[id number] Payer ID:[id number] Group ID:Not on file Type:Medicare Address: [facility] [employer] [facility] [address] [place] [id number] [employer] MEDEX SUPPLEMENT MEDICARE PART A & B [employer] MEDEX SUPPLEMENT MEDICARE PART A & B MEDICARE PART A & B [employer] MEDEX SUPPLEMENT MEDICARE PART A & B [employer] MEDEX SUPPLEMENT MEDICARE PART A & B Member Subscriber Plan / Payer ( fective 2020-) Name:Mer Salinas Member ID:[id number] Relation to Subscriber:Self Name:Mer Salinas Subscriber ID:[id number] Payer ID:[id number] Group ID:Not on file Type:Medicare Address: [facility] [employer] [facility]. [address] [facility] [place] [address] Advance Directives For more information, please contact: [phone] (9AM - 5PM [facility], Wednesday-Wednesday) Documents on File Type Date Recorded Patient Restrictive Preparation Operator Expl anation Healthcare Proxy 04/19/2023 2:48 PM Care Teams Stone Setter Relationship Specialty Start Date End Date Dieudonne Rios DO [address] [place] [address] PCP - General 03/01/17 Dieudonne Rios DO [address] [place] [address] Historical LMR Provider 03/07/17 Additional Source Comments The information contained in this document represents components of the legal health record. It is not the complete legal health record.[facility]
== END 2025-02-06 08:44 | disposition home or self-care (01) ==
LOC: HO.HMCSH 08:13
PROVIDERS: PCP Internal Medicine; Visit Provider Internal Medicine
DX: E78.5 Hyperlipidemia, unspecified (principal); I67.1 Cerebral aneurysm, nonruptured

== ENCOUNTER → 2025-02-06 08:13 | Outpatient (BNVA) | payer MEDICARE, SELFPAY | PROVIDERS: PCP Internal Medicine; Visit Provider Internal Medicine | DX: E78.5 Hyperlipidemia, unspecified (principal); I67.1 Cerebral aneurysm, nonruptured | CPT/HCPCS: 96127; 99212 ==

== ENCOUNTER 2025-02-27 10:08 | Outpatient (AMB) | payer MEDICARE, SELFPAY ==
[2025-02-27 10:11] VITALS: BP 124/78; PULSE 84; RESP 14; TEMP 36.8; O2SAT 99; BMI 23.3
--- NOTE | 2025-02-27 10:11 | A.OFFPC_ITS ---
Vital Signs 02/27/25 10:11 Height 5 ft 7.25 in Weight 150 lb BMI 23.3 BP 124/78 Respiration 14 Pulse 84 Pulse Source Pulse Oximeter Temp 98.2 F Temp Source Temporal Artery Scan Pulse Oximetry (%) 99 Oxygen Delivery Method Room Air Intake Visit Reasons: Pre-Op Office Lead Required: No Accompanied by: Self / Same As Patient Allergies No Known Allergies Allergy (Verified 02/27/25 10:12) Tobacco use date assessed: 01/23/25 Dental Screening Dental Screen Date: 09/18/24 [facility] Medical History Aneurysm of left vertebral artery Pre-operative clearance Cerebral aneurysm Urinary incontinence Elevated cholesterol CAD (coronary artery disease) Abnormal stress ECG with treadmill Surgical History History of esophagogastroduodenoscopy (EGD) H/O colonoscopy (~12/06/23) Family History Father No problems noted. Mother Stroke Brother Carotid stenosis Social History Housing: House Alcohol intake: current Alcohol intake frequency: a few times a week Patient Tobacco Use Status: Former Tobacco user Years Smoked: 8 +/- service: No Current occupational status: retired Cognitive needs: No Hearing needs: No Vision needs: Yes (rx glasses) Questionnaire PHQ-9 Over the last 2 weeks, how often have you been bothered by any of the following problems? 1. Little interest or pleasure in doing things: not at all 2. Feeling down, depressed, or hopeless: not at all 3. Trouble falling or staying asleep, or sleeping too much: not at all 4. Feeling tired or having little energy: not at all 5. Poor appetite or overeating: not at all 6. Feeling bad about yourself - or that you are a failure or have let yourself or your family down: not at all 7. Trouble concentrating on things, such as reading the newspaper or watching television: not at all 8. Moving or speaking so slowly that other people could have noticed. Or the opposite - being so fidgety or restless that you have been moving around a lot more than usual: not at all 9. Thoughts that you would be better off or of hurting yourself in some way: not at all Total score: 0 Depression Screening Interpretation: Negative Depression Screening Done: Yes 26821 - PHQ-9 Billing: Yes Source: Developed by Drs. Dieudonne Garcia, Jenny Sanchez, Bandar Sandoval and colleagues, with an educational bam from [employer]. Thrive Questionnaire Date Thrive assessed: 09/18/24 I am a: Patient What is your living situation today?: I have a steady place to live Within the past 12 months, did the food you bought not last and you didn't have the money to get more?: Never true Within the past 12 months, did you worry whether your food would run out before you got money to buy more?: Never true Do you have trouble paying for medicines?: No Do you have trouble getting transportation to medical appointments?: No Do you have trouble paying your heating and electricity bill?: No Do you have trouble taking care of your child, family member or friend?: No Do you have trouble with day-to-day activities such as bathing, preparing meals, shopping, managing finances, etc.?: No Are you currently unemployed and looking for a job?: No Are you interested in more education?: No Please select the resources that you would like help with: None THRIVE Score: 0 AUDIT C Alcohol Use Questionnaire (AUDIT-C) 1. How often do you have a drink containing alcohol?: 2-3 times a week 2. How many drinks containing alcohol do you have on a typical day when you are drinking?: 1 or 2 3. How often do you have six or more drinks on one occasion?: Never Total Score: 3 Score Reviewed/Action Taken: No MAGGIE-7 AMB Questionnaire MAGGIE-7 Date MAGGIE - 7 assessed: 09/18/24 Feeling nervous, anxious, or on edge: 0 = Not at all Not being able to stop or control worryin = Not at all Worrying too much about different things: 0 = Not at all Trouble relaxin = Not at all Being so restless that it is hard to sit still: 0 = Not at all Becoming easily annoyed or irritable: 0 = Not at all Feeling afraid as if something awful might happen: 0 = Not at all Total MAGGIE-7 score (0-4 normal; 5-9 mild; 10-14 moderate; 15-21 severe): 0 Source: Developed by Drs. Dieudonne Garcia, Jenny Sanchez, Bandar Sandoval and colleagues, with an educational bam from [employer]. MAGGIE-7 Assessment Billing MAGGIE-7 Assessment Tool: MAGGIE-7 Assessment 49660 Physical exam (Primary Care) Vital Signs: Last Vital Signs Temp 98.2 F 02/27/25 10:11 Pulse 84 02/27/25 10:11 Resp 14 02/27/25 10:11 BP 124/78 02/27/25 10:11 Pulse Ox 99 02/27/25 10:11 Oxygen Delivery Method Room Air 02/27/25 10:11 BMI result Body Mass Index 23.3 Tobacco/Smoking Status: Tobacco use Status Tobacco use date assessed 01/23/25 02/27/25 10:14 Patient Tobacco Use Status Former Tobacco user 02/27/25 10:14 Tobacco use type 01/05/25 10:16 PHQ-9: PHQ-9 Score PHQ-9: Total score 0 02/27/25 10:14 Depression Screening Interpretation: Negative Thrive Assessment: Date of Thrive Assessment Date Thrive assessed 09/18/24 02/27/25 10:14 Office Procedures EKG Details: NSR 94050-Laysdbgojmkcsxasz, Complete Coding Level of Care Code Est Pt Level 4 (65178) Complex EM visit Add On G2211 Diagnoses Cerebral aneurysm I67.1 CPT Codes EKG - CPT: 95088-Yuqqyswbdbulnqwoz, Complete ([id number]) Additional Codes MAGGIE-7 Assessment Billing - MAGGIE-7 Assessment Tool: MAGGIE-7 Assessment 52280 ([id number]) PHQ-9 - 79905 - PHQ-9 Billing: Yes ([id number]) Assessment & Plan Assessment & Plan (1) Cerebral aneurysm: Code(s): I67.1 - Cerebral aneurysm, nonruptured Category: Medical Plan: History of Present Illness - The patient is a 69-year-old female presenting with a preoperative evaluation for an upcoming cerebral angiogram. - The patient has an intracranial aneurysm discovered incidentally during an evaluation for headaches. - The aneurysm was identified after a series of tests initiated by Dr. Bhagat due to the patient's headache complaints. - The aneurysm was confirmed by Dr. Adams at [place], measuring approximately 12.5 mm, necessitating prompt intervention. - The patient has been on Brilinta and aspirin since September 2024 as a preventative measure against stroke, despite never having experienced a stroke. - The patient received an influenza vaccination recently and reports no other surgeries or significant medical events. Social History Review of Systems - Neurological: Reports headaches. Denies history of stroke or other neurological issues. Physical Exam General: Cooperative and healthy appearing Nutritional Appearance: Well nourished Orientation/consciousness: Patient oriented x3 Limitations: No limitations Head: Normal to inspection General: Appearance normal, both eyes and all related structures Neck: Normal visual inspection Chest: Normal palpation of entire chest wall Respiratory: Normal ormal respiratory effort Neurology: Patient oriented x3, no history of stroke Results Plan - The patient is scheduled for a cerebral angiogram to further evaluate the intracranial aneurysm. - Preoperative instructions include stopping Brilinta five days before the procedure and aspirin seven days prior to prevent excessive bleeding during catheterization. - Repeat blood work has been ordered to ensure surgical readiness. Discussion Notes I discussed with the patient the importance of stopping Brilinta five days before the procedure and aspirin seven days prior to minimize bleeding risks during the angiogram. We reviewed the procedure details, and I confirmed that the EKG was normal. I also placed orders for repeat blood work to ensure the patient is ready for surgery. The patient was advised to follow the preoperative instructions carefully and to contact us if there are any questions or concerns. Patient Instructions - Stop taking Brilinta five days before the procedure. - Stop taking aspirin seven days before the procedure. - Complete the repeat blood work as ordered. - Follow up with Dr. Bhagat as scheduled. Orders: Orders AMB EKG-In Office Today R07.9 - Chest pain, unspecified Basic Metabolic Panel Today I67.1 - Cerebral aneurysm, nonruptured Lipid Panel Today I67.1 - Cerebral aneurysm, nonruptured Liver Panel Today I67.1 - Cerebral aneurysm, nonruptured Thyroid Stimulating Hormone Today I67.1 - Cerebral aneurysm, nonruptured UA and rflx microscopic Today I67.1 - Cerebral aneurysm, nonruptured Complete Blood Count no Diff Today I67.1 - Cerebral aneurysm, nonruptured
--- OUTSIDE RECORDS SUMMARY | 2025-02-27 11:43 | XMS_ITS | Encounter Summary ---
Author Organization [facility] Address [address] [place] [address] Phone Care Team Providers Care Sales Operations Manager Name Role Phone Dieudonne Rios DO Primary Care Provider [phone] Dieudonne Rios DO Unavailable [phone] Ranjana Ivy MD Unavailable Encounter Details Date Type Department Care Team (Late st Contact Info) Description 04/21/2021 Procedure Pass [address] [address] Social History Tobacco Use Types Packs/Day Years [...] st Contact Info) Description 09/06/2024 Procedure Pass [address] [address] 03/30/2025 8:30 AM EST Appointment [address] [address] Lester Osuna MD [address] [place] [address] [address] documented as of this encounter Visit Diagnoses Not on filedocumented in this encounter Care Teams Sales Operations Manager Relationship Specialty Start Date End Date Dieudonne Rios DO [address] [place] [address] PCP - General 03/01/17 Dieudonne Rios DO [address] [place] [address] Historical LMR Provider 03/07/17 Ranjana Ivy MD [address] [place] [address] Historical LMR Provider 03/07/17 2 documented as of this encounter Additional Source Comments The information contained in this document represents components of the legal health record. It is not the complete legal health record.[facility]
--- OUTSIDE RECORDS SUMMARY | 2025-02-27 11:43 | XMS_ITS | Encounter Summary ---
Author Organization [facility] Address [address] [place] [address] Phone Care Team Providers Care Honey Grader And Blender Name Role Phone Dieudonne Rios DO Primary Care Provider Dieudonne Rios DO Unavailable Ranjana Ivy MD Unavailable [phone] Encounter Details Date Type Department Care Team (Latest Contact Info) Description 04/21/2021 Transcribe Orders Virtual Department [address] [place] [address] Dieudonne Rios DO [address] [place] [address] Breast screening (Primary Dx) Social History Tobacco [...] st Contact Info) Description 09/06/2024 Procedure Pass [address] [address] 03/30/2025 8:30 AM EST Appointment [address] [address] Lester Osuna MD [address] [place] [address] documented as of this encounter Results * [...] unspecified documented in this encounter Care Teams Honey Grader And Blender Relationship Specialty Start Date End Date Dieudonne Rios DO [address] [place] [address] PCP - General 03/01/17 Dieudonne Rios DO [address] [place] [address] Historical LMR Provider 03/07/17 Ranjana Ivy MD [address] [place] [phone] Historical LMR Provider 03/07/17 2 documented as of this encounter Additional Source Comments The information contained in this document represents components of the legal health record. It is not the complete legal health record.[facility]
--- OUTSIDE RECORDS SUMMARY | 2025-02-27 11:44 | XMS_ITS | Encounter Summary ---
Author Organization [facility] Address [address] [place] [address] Phone Care Team Providers Care Leather Goods Maker Name Role Phone Dieudonne Rios DO Primary Care Provider Dieudonne Rios DO Unavailable [phone] Ranjana Ivy MD Unavailable [phone] Encounter Details Date Type Department Care Team (Late st Contact Info) Description 12/23/2017 Ancillary Orders Virtual Department [address] [place] [address] Dieudonne Rios DO [address] [place] [address] Breast screening Social History Tobacco Use Types [...] Contact Info) Description 09/06/2024 Procedure Pass [address] [address] 03/30/2025 8:30 AM EST Appointment [address] [address] Lester Osuna MD [address] [place] [address] documented as of this encounter Results * [...] documented as of this encounter Care Teams Leather Goods Maker Relationship Specialty Start Date End Date Dieudonne Rios DO [address] [place] [address] PCP - General 03/01/17 Dieudonne Rios DO [address] [place] [address] Historical LMR Provider 03/07/17 Ranjana Ivy MD [address] [place] [address] Historical LMR Provider 03/07/17 2 documented as of this encounter Additional Source Comments The information contained in this document represents components of the legal health record. It is not the complete legal health record.[facility]
--- OUTSIDE RECORDS SUMMARY | 2025-02-27 11:44 | XMS_ITS | Encounter Summary ---
Author Organization [facility] Address [address] [place] [address] Phone Care Team Providers Care Bi Application Developer Name Role Phone Dieudonne Rios DO Primary Care Provider Dieudonne Rios DO Unavailable [phone] Encounter Details Date Type Department Care Team (Late st Contact Info) Description 04/28/[address] [address] Social History Tobacco Use Types Packs/Day Years [...] st Contact Info) Description 09/06/2024 Procedure Pass [facility], [address] [address] 03/30/2025 8:30 AM EST Appointment [address] [address] Lester Osuna MD [address] [address] documented as of this encounter Visit Diagnoses Not on filedocumented in this encounter Care Teams Bi Application Developer Relationship Specialty Start Date End Date Dieudonne Rios DO [address] [place] [address] PCP - General 03/01/17 Dieudonne Rios DO [address] [place] [address] Historical LMR Provider 03/07/17 documented as of this encounter Additional Source Comments The information contained in this document represents components of the legal health record. It is not the complete legal health record.[facility]
--- OUTSIDE RECORDS SUMMARY | 2025-02-27 11:44 | XMS_ITS | Encounter Summary ---
Author Organization [facility] Address [address] [place] [address] Care Team Providers Care Aeronautical Products Sales Engineer Name Role Phone Cristobal Pereira MD Unavailable Unava ilable Lester Osuna MD Primary Care Provider + Call, Tatyana Matias RN Unavailable [phone] Encounter Details Date Type Department Care Team (Late st Contact Info) Description 10/03/2024 Prep for Surgery [facility] [id number] [address] [address] Vahe Casanova PA-C [address] [place] [address] Social History Tobacco Use Types Packs/Day Years Used Date Smoking Tobacco: Former Cigarettes 0.2 45.3 S tarted: 10/30/1979 Smokeless Tobacco: Never [...] as of this encounter Functional Status * PHQ-2 Total Score Answer Date of Assessment Author 0 10/04/2024 8:11 AM EDGianna Galeano RN * Question Answer Date of Assessment Author Little interest or pleasure in doing things Not at all 10/04/2024 8:11 AM Gianna Dawn RN Feeling down, depressed, or hopeless Not at all 10/04/2024 8:11 AM Gianna Dawn RN * Over the past 2 weeks, how often have you been bothered by any of the following problems? Question Answer Date of Assessment Author Patient Health Questionnaire -2 Score 0 10/04/2024 8:11 AM Gianna Dawn RN * Level of Risk per Screen Answer Date of Assessment Author Low Risk 10/04/2024 8:11 AM Gianna Dawn RN documented as of this encounter Plan of Treatment Upcoming Encounters Date Type Department Care Team (Latest Contact Info) Description 03/21/2025 10:45 AM EST Hospital Encounter [facility] Perioperative Surgical Services [address] [place] [phone] Richmond Adams MD [address] [address] Intracranial aneurysm 03/21/2025 10:45 AM EST - 03/21/2025 1:15 PM EST Surgery [facility] [address] [place] [address] Richmond Adams MD [address] [address] diagnostic cerebral angiogram documented as of this encounter Visit Diagnoses Not on filedocumented in this encounter Care Teams Aeronautical Products Sales Engineer Relationship Specialty Start Date End Date Lester Osuna MD [address] [place] [address] PCP - General Internal Medicine 07/11/24 Cristobal Pereira MD Referring Provider Neurology 06/07/24 Call, Tatyana Matias RN [address] [place] [address] Registered Nurse Surgery, Neurosurgery 07/13/24 documented as of this encounter
--- OUTSIDE RECORDS SUMMARY | 2025-02-27 11:44 | XMS_ITS | Clinical Summary ---
Author Organization [facility] Address [address] [place] [address] Phone Care Team Providers Care Wire Photo Operator Name Role Phone Dieudonne Rios DO Primary Care Provider Dieudonne Rios DO Unavailable Immunizations Immunization Administration Dates Next Due COVID-19 [...] Contact Info) Description 09/06/[address] [address] 03/30/2025 8:30 AM EST Appointment [address] [address] Lester Osuna MD 10 [facility] [address] [address] Health Maintenance Due Date Last Done Comments [...] EST Routine general medical examination at a [facility] facility Constant low-grade dysphagia from Last 3 [...] (04/21/2021 7:53 AM EST) HDL 50 mg/dL [facility] Comment: Interpretation <40 mg/dL: Low HDL cholesterol (major risk factor for CHD) Greater than or equal to 60 mg/dL: High HDL cholesterol ( negative risk factor for CHD) HDL - cholesterol is affected by a number of factors, e.g. smoking, excerise, hormones, sex and age. CHOLESTEROL 173 0 - 240 mg/dL [facility] TRIGLYCERIDES 127 30 - 160 mg/dL [facility] LDL 98 50 - 129 mg/dL [facility] Comment: LDL levels in terms of risk for coronary heart disease: <100 mg/dL: Optimal 100-129 mg/dL: Near or above optimal 130-159 mg/dL: Borderline high 160-189 mg/dL: High >190 mg/dL: Very High CARDIAC RISK RATIO 3.5 3.3 - 4.4 C [facility] Blood 04/21/2021 7:53 AM EST 04/21/2021 7:58 AM EST Dieudonne Rios DO LAB BLOOD ORDERABLES Final R esult [facility] [address] [place] [address] from Last 3 Months or Most Recently Relevant to Health Maintenance Insurance [facility] MEDEX SUPPLEMENT MEDICARE PART A & B [employer] MED[employer] SUPPLEMENT MEDICARE PART A & B [employer] SUPPLEMENT MEDICARE PART A & B [employer] SUPPLEMENT MEDICARE PART A & B [employer] SUPPLEMENT MEDICARE PART A & B [employer] SUPPLEMENT MEDICARE PART A & B MEDICARE PART A & B [employer] SUPPLEMENT MEDICARE PART A & B [employer] MEDEX SUPPLEMENT MEDICARE PART A & B Member Subscriber Plan / Payer ( fective 2020-) Name:Mer Salinas Member ID:[id number] Relation to Subscriber:Self Name:Mer Salnias Subscriber ID:[id number] Payer ID:[id number] Group ID:Not on file Type:Medicare Address: [facility] [employer] [facility]. [address] [facility] [place] [address] Advance Directives For more information, please contact: [phone] (9AM - 5PM [facility], Wednesday-Wednesday) Documents on File Type Date Recorded Patient Hose Finisher Expl anation Healthcare Proxy 04/19/2023 2:48 PM Care Teams Wire Photo Operator Relationship Specialty Start Date End Date Dieudonne Rios DO [address] [place] [address] PCP - General 03/01/17 Dieudonne Rios DO [address] [place] [address] Historical LMR Provider 03/07/17 Additional Source Comments The information contained in this document represents components of the legal health record. It is not the complete legal health record.[facility]
--- OUTSIDE RECORDS SUMMARY | 2025-02-27 11:44 | XMS_ITS | Encounter Summary ---
Author Organization [facility] Address [address] [place] [address] Phone Care Team Providers Care Street Department Dispatcher Name Role Phone Dieudonne Rios DO Primary Care Provider [phone] Dieudonne Rios DO Unavailable [phone] Encounter Details Date Type Department Care Team (Late st Contact Info) Description 06/30/2022 Procedure Pass [address] [address] Social History Tobacco Use Types Packs/Day Years [...] st Contact Info) Description 09/06/2024 Procedure Pass [address] [address] 03/30/2025 8:30 AM EST Appointment [address] [address] Lester Osuna MD [address] [place] [address] [address] documented as of this encounter Visit Diagnoses Not on filedocumented in this encounter Care Teams Street Department Dispatcher Relationship Specialty Start Date End Date Dieudonne Rios DO [address] [place] [address] PCP - General 03/01/17 Dieudonne Rios DO [address] [place] [address] Historical LMR Provider 03/07/17 documented as of this encounter Additional Source Comments The information contained in this document represents components of the legal health record. It is not the complete legal health record.[facility]
--- OUTSIDE RECORDS SUMMARY | 2025-02-27 11:44 | XMS_ITS | Encounter Summary ---
Author Organization [facility] Address [address] [place] [address] Care Team Providers Care Template Reproduction Technician Name Role Phone Cristobal Pereira MD Unavailable Unava ilable Lester Osuna MD Primary Care Provider + Call, Tatyana Matias RN Unavailable [phone] Encounter Details Date Type Department Care Team (Late st Contact Info) Description 08/29/2024 Scanned Document [facility] NEUROSURGERY SCAN Neurosurgery, Scan Social History Tobacco [...] Description 03/21/2025 10:45 AM EST Hospital Encounter [facility] Perioperative Surgical Services [address] [place] [phone] Richmond Adams MD [address] [address] Intracranial aneurysm 03/21/2025 10:45 AM EST - 03/21/2025 1:15 PM EST Surgery [facility] Services [address] [place] [address] Richmond Adams MD [address] [phone] diagnostic cerebral angiogram documented as of this encounter Visit Diagnoses Not on filedocumented in this encounter Care Teams Template Reproduction Technician Relationship Specialty Start Date End Date Lesetr Osuna MD [address] [place] [address] PCP - General Internal Medicine 07/11/24 Cristobal Pereira MD Referring Provider Neurology 06/07/24 Augusto, Tatyana Matias RN [address] [place] [address] Registered Nurse Surgery, Neurosurgery 07/13/24 documented as of this encounter
--- OUTSIDE RECORDS SUMMARY | 2025-02-27 11:44 | XMS_ITS | Encounter Summary ---
Author Organization [facility] Address [address] [facility] [address] [place] [address] Phone Care Team Providers Care Stonework Tracer Name Role Phone Dieudonne Rios DO Primary Care Provider Dieudonne Rios DO Unavailable Ranjana Ivy MD Unavailable [phone] Encounter Details Date Type Department Care Team (Late st Contact Info) Description 04/06/2019 Ancillary Orders Virtual Department [address] [place] [address] Dieudonne Rios DO [address] [place] [address] Breast screening Social History Tobacco Use Types [...] Contact Info) Description 09/06/2024 Procedure Pass [address] [address] 03/30/2025 8:30 AM EST Appointment [address] [address] Lester Osuna MD [address] [place] [address] documented as of this encounter Results * [...] and compared with multiple prior studies, most [id number]/08/2018, with utilization of computer-aided detection. The breasts [...] documented as of this encounter Care Teams Stonework Tracer Relationship Specialty Start Date End Date Dieudonne Rios DO [address] [place] [address] PCP - General 03/01/17 Dieudonne Rios DO [address] [place] [address] Historical LMR Provider 03/07/17 Ranjana Ivy [facility] [place] [address] Historical LMR Provider 03/07/17 2 documented as of this encounter Additional Source Comments The information contained in this document represents components of the legal health record. It is not the complete legal health record.[facility]
--- OUTSIDE RECORDS SUMMARY | 2025-02-27 11:44 | XMS_ITS | Encounter Summary ---
Author Organization [facility] Address [address] [place] [address] Care Team Providers Care Character Actor Name Role Phone Cristobal Pereira MD Unavailable Unava ilable Lester Osuna MD Primary Care Provider + Call, Tatyana Matias RN Unavailable Encounter Details Date Type Department Care Team (Late st Contact Info) Description 07/11/2024 Scanned Document [facility] NEUROSURGERY SCAN Neurosurgery, Scan Social History Tobacco [...] Description 03/21/2025 10:45 AM EST Hospital Encounter [facility] Perioperative Surgical Services [address] [place] [address] Richmond Adams MD 85 [facility] [address] [place] [address] Intracranial aneurysm 03/21/2025 10:45 AM EST - 03/21/2025 1:15 PM EST Surgery [facility]operative Surgical Services [address] [place] [address] Richmond Adams MD 85 [facility] [address] [place] [address] diagnostic cerebral angiogram documented as of this encounter Visit Diagnoses Not on filedocumented in this encounter Care Teams Character Actor Relationship Specialty Start Date End Date Lester Osuna MD [address] [place] [address] PCP - General Internal Medicine 07/11/24 Cristobal Pereira MD Referring Provider Neurology 06/07/24 Augusto, Tatyana Matias RN [address] [place] [address] Registered Nurse Surgery, Neurosurgery 07/13/24 documented as of this encounter
--- OUTSIDE RECORDS SUMMARY | 2025-02-27 11:44 | XMS_ITS | Clinical Summary ---
Author Organization [facility] Address [address] [place] [address] Care Team Providers Care Health And Safety Director Name Role Phone Cristobal Pereira MD Unavailable Unava ilable Lester Osuna MD Primary Care Provider + Call, Tatyana Matias RN Unavailable [phone] Allergies No known active allergies Medications [...] Team Description 11/29/2024 Orders Only [facility] [id number] [address] [place] [address] Vahe Casanova PA-C Intracranial aneurysm (Primary Dx); Vertebral artery aneurysm 11/29/2024 Refill [facility] [id number] [address] [place] [address] Yodit Calderon PA Intracranial aneurysm 11/27/2024 Telephone [facility] [id number] [address] [place] [address] Call, Tatyana Matias RN 11/27/2024 Orders Only [facility] [id number] [address] [place] [address] Yodit Calderon PA Intracranial aneurysm from Last [...] 10/19/2024 10:33 AM EDT Plan of Treatment Upcoming Encounters Date Type Department Care Team (Latest Contact Info) Description 03/21/2025 10:45 AM EST Hospital Encounter [facility] Perioperative Surgical Services [address] [place] [phone] Richmond Adams MD [address] [address] Intracranial aneurysm 03/21/2025 10:45 AM EST - 03/21/2025 1:15 PM EST Surgery [facility] Per[facility]operative [facility] Services [address] [place] [phone] Richmond Adams MD [address] [address] diagnostic cerebral angiogram Health Maintenance Due Date Last Done Comments [...] this topic Medical Devices Implanted Type Area [employer] Tractor Operator Device Identifier Shelf Expiration Date Model / Serial / Lot [id number] Coil Embolization Optm 9mm 30cm Complex Soft Disp Sterl Lf - [id number] Implanted:Qty: 1 on 10/05/2024 by Richmond Adams MD at [facility] Coil Left: Brain [employer] 08/09/2029 [id number] / / [id number] Device Embolization 20mm 4.75mm Pipeline Flex Brd Soft Dist - [id number] Implanted:Qty: 1 on 10/04/2024 by Richmond Adams MD at [facility] Stent Left: Brain [employer] MINIMALLY INVASIVE T [id number] 02/15/2027 [id number] / / [id number] Device Closure Angsl Vip Bondek-Plus 6fr .035in 70cm Implanted:Qty: 1 on 10/04/2024 by Richmond Adams MD at [facility] Left: Brain TERProacta CARDIOVASCULAR SYSTEMS [id number] / / Description:ENTERED FOR REBECCA GING PURPOSES UNDER IMPLANTS. ENTERED UNDER SUPPLIES FOR INVENTORY TO DECREMENT. Guidewire Vascular Graham 14 Hydrophilic 30 Cm L46 Cm 10 Implanted:Qty: 2 on 10/04/2024 by Richmond Adams MD at [facility] Left: Brain UNKNOWN [id number] / / Description:ENTERED FOR REBECCA GING PURPOSES UNDER IMPLANTS. ENTERED UNDER SUPPLIES FOR INVENTORY TO DECREMENT. Sheath Intro Bllst .1-.106in .088in 80cm Long Soft Coil Dist Implanted:Qty: 1 on 10/04/2024 by Richmond Adams MD at [facility] Left: Brain [employer] [id number] / / Description:ENTERED FOR REBECCA GING PURPOSES UNDER IMPLANTS. ENTERED UNDER SUPPLIES FOR INVENTORY TO DECREMENT. Microcatheter Crbrvasc 15cm .036-.04in .027in Phenom Rnd Implanted:Qty: 1 on 10/04/2024 by Richmond Adams MD at [facility] Left: Brain Medtronic [id number] / / Description:ENTERED FOR REBECCA GING PURPOSES UNDER IMPLANTS. ENTERED UNDER SUPPLIES FOR INVENTORY TO DECREMENT. Microcatheter Infusion Headway Duo 1.6-2.1fr 156cm Straight Implanted:Qty: 1 on 10/04/2024 by Richmond Adams MD at [facility] Left: Brain UNKNOWN [id number] / / Description:ENTERED FOR REBECCA GING PURPOSES UNDER IMPLANTS. ENTERED UNDER SUPPLIES FOR INVENTORY TO DECREMENT. Catheter Aspiration Cereglide 71 .082in .071in 115cm Plmr Implanted:Qty: 1 on 10/04/2024 by Richmond Adams MD at [facility] Left: Brain Atrum [employer] CAR [id number] / / Description:ENTERED FOR REBECCA GING PURPOSES UNDER IMPLANTS. ENTERED UNDER SUPPLIES FOR INVENTORY TO DECREMENT. Procedures Procedure Name Priority Date/Time Associated Diagnosis Comments ENDOVASCULAR PROCEDURE Routine 02/09/2025 1:27 PM EDT Intracranial aneurysm from Last 3 Months Insurance [facility] - PPO MEDICARE PART A & B Advance Directives * Full Code (Latest Code Status on File) Date Activated Date Inactivated Comments 10/04/2024 11:48 AM * Full Code Date Activated Date Inactivated Comments 10/04/2024 7:58 AM 10/04/2024 11:48 AM * Full Code Date Activated Date Inactivated Comments 08/11/2024 9:19 AM 10/04/2024 7:15 AM Care Teams Health And Safety Director Relationship Specialty Start Date End Date Lester Osuna MD [address] [place] [address] PCP - General Internal Medicine 07/11/24 Cristobal Pereira MD Referring Provider Neurology 06/07/24 Call, Tatyana Matias RN [address] [place] [address] Registered Nurse Surgery, Neurosurgery 07/13/24
--- OUTSIDE RECORDS SUMMARY | 2025-02-27 11:44 | XMS_ITS | Encounter Summary ---
Author Organization [facility] Address [address] [facility] [address] [place] [address] Phone Care Team Providers Care Floor Tiling Professional Name Role Phone Dieudonne Rios DO Primary Care Provider Dieudonne Rios DO Unavailable [phone] Ranjana Ivy MD Unavailable [phone] Encounter Details Date Type Department Care Team (Late st Contact Info) Description 05/08/2020 Ancillary Orders Virtual Department [address] [place] [address] Dieudonne Rios DO [address] [place] [address] Breast cancer screening by mammogram Social History [...] st Contact Info) Description 09/06/2024 Procedure Pass [address] [address] 03/30/2025 8:30 AM EST Appointment [address] [address] Lester Osuna MD [address] [place] [address] documented as of this encounter Results * [...] documented as of this encounter Care Teams Floor Tiling Professional Relationship Specialty Start Date End Date Dieudonne Rios DO [address] [place] [address] PCP - General 03/01/17 Dieudonne Rios DO [address] [place] [address] Historical LMR Provider 03/07/17 Ranjana Ivy MD [address] [place] [address] Historical LMR Provider 03/07/17 2 documented as of this encounter Additional Source Comments The information contained in this document represents components of the legal health record. It is not the complete legal health record.[facility]
--- OUTSIDE RECORDS SUMMARY | 2025-02-27 11:44 | XMS_ITS | Encounter Summary ---
Author Organization [facility] Address [address] [facility] [address] [place] [address] Phone Care Team Providers Care V Block Saw Operator Name Role Phone Dieudonne Rios DO Primary Care Provider Dieudonne Rios DO Unavailable [phone] Ranjana Ivy MD Unavailable + [phone] Encounter Details Date Type Department Care Team (Late st Contact Info) Description 05/08/2020 Procedure Pass [address] [address] Social History Tobacco Use Types Packs/Day Years [...] st Contact Info) Description 09/06/2024 Procedure Pass [address] [address] 03/30/2025 8:30 AM EST Appointment [address] [address] Lester Osuna MD [address] [place] [address] [address] documented as of this encounter Visit Diagnoses Not on filedocumented in this encounter Additional Health Concerns Infection Onset Date Last Indicated Resolved Time CoV-Exposed Comment:Recent close contact documented in the COVID-19 PCR/PRO order 06/22/2020 06/30/2020 07/17/2020 1:[address] documented as of this encounter Care Teams V Block Saw Operator Relationship Specialty Start Date End Date Dieudonne Rios DO [address] [place] [address] PCP - General 03/01/17 Dieudonne Rios DO [address] [place] [address] Historical LMR Provider 03/07/17 Ranjana Ivy MD [address] [place] [address] Historical LMR Provider 03/07/17 2 documented as of this encounter Additional Source Comments The information contained in this document represents components of the legal health record. It is not the complete legal health record.[facility]
== END 2025-02-27 10:52 | disposition home or self-care (01) ==
LOC: HO.HMCSH 10:09
PROVIDERS: PCP Internal Medicine; Visit Provider Internal Medicine
DX: I67.1 Cerebral aneurysm, nonruptured (principal)

== ENCOUNTER 2025-02-27 10:08 | Outpatient (REF) | payer MEDICARE, SELFPAY ==
[2025-02-27 14:04] LABS: Hematocrit 41.2 % (37.0-47.0); Hemoglobin 13.0 g/dl (12.0-16.0); Mean Corpuscular HGB Conc 31.6 g/dl (31.0-35.0); Mean Corpuscular Hemoglobin 30.1 pg (27.0-33.0); Mean Corpuscular Volume 95.4 fL (80.0-98.0); NRBC Abs Auto 0.000 X10*3/uL (0.0-0.012); NRBC Pct Auto 0.0 /100WBC (0.0-0.2); Platelet Count 229 X10*3/uL (160-400); Red Blood Count 4.32 X10*6/uL (4.20-5.50); White Blood Count 6.6 X10*3/uL (4.8-10.8)
[2025-02-27 14:43] LABS: Appearance Urine Clear; Glucose Urine UA Negative (Negative); PH 7.0 (5.0-9.0); Specific Gravity - Urine <= 1.005 (1.005-1.025)
[2025-02-27 14:49] LABS: Alanine Aminotransferase 39 U/L (0-31); Albumin Level 4.5 g/dL (3.5-5.0); Alkaline Phosphatase 65 U/L (39-117); Anion Gap 11 (12-20); Aspartate Amino Transferase 38 U/L (5-31); Blood Urea Nitrogen 15 mg/dL (9-16); Calcium 9.3 mg/dL (8.4-10.2); Carbon Dioxide 30 mmol/L (22-29); Chloride 106 mmol/L (96-108); Cholesterol 132 mg/dL (<200); Estimated Glomerular Filt Rate > 60; HDL Cholesterol 48 mg/dL (>40); Potassium 4.5 mmol/L (3.3-5.1); Sodium 142 mmol/L (135-145); Thyroid Stimulating Hormone 1.38 uIU/mL (0.32-4.0); Total Protein 7.2 g/dL (6.5-8.0); Triglycerides 138 mg/dL (<150)
== END 2025-02-27 10:09 | disposition home or self-care (01) ==
LOC: HO.LAB 10:08
PROVIDERS: PCP Internal Medicine; Visit Provider Internal Medicine
DX: I67.1 Cerebral aneurysm, nonruptured (principal); G43.009 Migraine without aura, not intractable, without status migrainosus
CPT/HCPCS: 36415; 80048; 80061; 80076; 81003; 84443; 85027; 93005; 96127; 99212

== ENCOUNTER 2025-02-27 11:16 | Outpatient (AMB) | payer MEDICARE, SELFPAY ==
--- NOTE | 2025-02-27 11:44 | A.OFFVIS_ITS ---
Intake Visit Reasons: Last seen 05/22/2024 per eCW Allergies No Known Allergies Allergy (Verified 02/27/25 10:12) HPI Comments Details: The patient is a 69-year-old female presenting with a history of migraines and follow-up for cerebral aneurysm management. She underwent an angiogram followed by coil and stent placement by Dr. Adams in September 2024 at [facility]. Another angiogram is scheduled for March 21, 2025, to check the treatment outcome. She has noted improvement in her headaches but identifies stress and high altitude as recent triggers during travel. Her migraines reach a severity of 5 to 6 on a 10-scale and are generally managed with Tylenol PM. Alcohol, specifically beer, is a noted trigger, while she avoids fasting and dehydration. She was previously unacquainted with chocolate as a trigger. She experiences occasional ocular migraines lasting 30 to 45 minutes without pain, describing them as merely bothersome. [facility] Medical History Aneurysm of left vertebral artery Pre-operative clearance Cerebral aneurysm Urinary incontinence Elevated cholesterol CAD (coronary artery disease) Abnormal stress ECG with treadmill Surgical History History of esophagogastroduodenoscopy (EGD) H/O colonoscopy (~12/06/23) Family History Father No problems noted. Mother Stroke Brother Carotid stenosis Social History Housing: House Alcohol intake: current Alcohol intake frequency: a few times a week Patient Tobacco Use Status: Former Tobacco user Years Smoked: 8 +/- service: No Current occupational status: retired Cognitive needs: No Hearing needs: No Vision needs: Yes (rx glasses) Review of Systems Const Details: - Head and Neurological: Reports migraines that can scale to 5 or 6 in intensity, occasional ocular migraines lasting 30-45 minutes, and improvement after treatment. Reports headaches triggered by stress, high altitude, and certain foods/beverages like alcohol. - Musculoskeletal: Denies any musculoskeletal symptoms. - General: Denies any other systemic issues Physical Exam Neuro Other: Mental Status: Alert and oriented to person, place, and time. Normal attention. Normal spontaneous speech, fluency, and comprehension. No obvious issues with mood and memory. Affect is appropriate. Cranial Nerves: CN II: Visual hernandez full to confrontation, visual acuity intact. CN III, IV, : Pupils equal, round, reactive to light and accommodation. Extraocular movements are normal. CN V: Facial sensation is normal. CN VII: Facial movements symmetrical. CN VIII: Hearing intact to bedside conversation is normal. CN IX, X: Palate elevates symmetrically. CN XI: Shoulder shrug and head turn symmetrical. CN XII: Tongue midline without atrophy or fasciculations. Gait and Station: No obvious gait abnormality. No ataxia or instability. Extrapyramidal: Full facial expressions and blinking. No rigidity. Movements are appropriate with no tremor or abnormality. Speech: Normal; no dysarthria or tremor. Assessment & Plan Assessment & Plan (1) Cerebral aneurysm: Comment: MRA brain at [facility] in 2023: No aneurysm (reported) but I still see the swelling MRI brain WO at [facility] in Mar 2024: L CP angle lesion, prob aneurysm, MVD CTA brain at [facility] in Mar 2024: 12 mm lobulated and 8mm broad-based neck cerebral aneurysm, L PICA/AICA origin. Code(s): I67.1 - Cerebral aneurysm, nonruptured Category: Medical (2) Migraine: Code(s): G43.909 - Migraine, unspecified, not intractable, without status migrainosus Category: Medical Qualifiers: Migraine type: migraine (< 15 days per month) without aura Status migrainosus presence: without status migrainosus Intractability: not intractable Qualified Code(s): G43.009 - Migraine without aura, not intractable, without status migrainosus Plan Impression: a: L PICA/AICA area cerebral aneurysm, s/o coiling b: Migraine w/o aura, not that severe Rec: Fiorecet 1-2 a day as needed. She was educated about different aspect of migraine management and its typical triggers Medications: Changed From zbhbsieecc-lzzraybxjjlli-syls 50-300-40 mg 1 cap PO Q4H PRN To rrihbvtifu-jktwhpmvoxhcv-vzbo 50-300-40 mg 1 cap orally as needed for headache; 10 caps 3RF 30 days Coding Level of Care Code Est Pt Level 4 (38270) Diagnoses Cerebral aneurysm I67.1 Migraine without aura and without status migrainosus, not intractable G43.009 Migraine type: migraine (< 15 days per month) without aura Status migrainosus presence: without status migrainosus Intractability: not intractable
== END 2025-02-27 11:58 | disposition home or self-care (01) ==
LOC: HO.HSM 11:17
PROVIDERS: PCP Internal Medicine; Visit Provider Psychiatry & Neurology Neurology
DX: I67.1 Cerebral aneurysm, nonruptured (principal); G43.009 Migraine without aura, not intractable, without status migrainosus
CPT/HCPCS: 99214

== ENCOUNTER 2025-03-08 15:34 | Emergency (ER) | payer MEDICARE, SELFPAY ==
--- NOTE | ~2025-03-08 | CT_ITS ---
CLINICAL HISTORY: CP and elevated D-dimer CT angiography of the chest with IV contrast. 3D/MIP post processing reconstructions were performed. COMPARISON: XR chest dated 03/08/25 at 17:20 EDT FINDINGS: There are no intraluminal filling defects to suggest pulmonary embolism. No evidence of right heart strain. Visualized thyroid is unremarkable. No supraclavicular or axillary lymphadenopathy. Ascending aorta and main pulmonary artery are normal in caliber. No pericardial effusion. Normal esophagus. No mediastinal or hilar lymphadenopathy. No pleural effusion. Minimal atelectasis along the posterior lower lobes. Trachea and central airways are clear. No significant bronchial wall thickening. No bronchiectasis. Visualized portions of the upper abdomen are unremarkable. No acute fracture or suspicious bone lesion. IMPRESSION: 1. No evidence of pulmonary embolism. 2. No acute intrathoracic findings. No evidence of pneumonia. This document has been electronically signed by: Javier Green MD on 03/08/2025 21:05:52
--- NOTE | ~2025-03-08 | XR_ITS ---
CLINICAL HISTORY: CP Two views of the chest. COMPARISON: None provided. FINDINGS: Normal heart and mediastinal contours. No consolidation. No pleural effusion or pneumothorax. Skeletally immature bones. IMPRESSION: 1. No consolidation. This document has been electronically signed by: Javier Green MD on 03/08/2025 17:51:34
--- NOTE | 2025-03-08 15:36 | ECG_ITS ---
Test Reason : chest pain Blood Pressure : */* mmHG Vent. Rate : 71 BPM Atrial Rate : 71 BPM P-R Int : 164 ms QRS Dur : 88 ms QT Int : 412 ms P-R-T Axes : 74 -3 40 degrees QTcB Int : 447 ms Normal sinus rhythm Possible Left atrial enlargement Borderline ECG When compared with ECG of 17-Jul-2024 11:08, Nonspecific T wave abnormality has replaced inverted T waves in Anterior leads Referred By: Generic ED Physician Electronically Signed By: LYNSEY HINES MD
[2025-03-08 15:42] VITALS: BP 191/88; PULSE 76; RESP 16; TEMP 36.3; O2SAT 99; BMI 23.3
--- NOTE | 2025-03-08 15:43 | ED.CHESTPAIN ---
HPI - Chest Pain General Chief Complaint: Chest Pain Stated Complaint: Chest pain, tightness L arm Time Seen by Provider: 03/08/25 16:33 Source: patient and family Mode of arrival: ambulatory Limitations: no limitations History of Present Illness ED Provider: DR. Booth HPI narrative: A 69-year-old female came in for evaluation of chest pain that is started earlier this morning pain started in the epigastric area and then moved to the lower chest area then patient started to feel tightness in the back of her left arm that made her concern in come to the hospital for further evaluation, no shortness of breath, patient feels better while she is in the ED, no nausea, no vomiting, normal bowel movement with no diarrhea, recently traveled to [place] with no lower extremity swelling or tenderness, no history of blood clots.. No fever, no chills. Related Data Home Medications ?Medication ?Instructions ?Recorded ?Confirmed cholecalciferol (vitamin D3) 25 25 mcg PO DAILY 06/02/21 09/18/24 mcg (1,000 unit) capsule zinc 50 mg tablet 50 mg PO DAILY 06/02/21 09/18/24 aspirin 81 mg tablet,delayed 81 mg PO DAILY 07/17/24 09/18/24 release (Adult Aspirin Regimen) ticagrelor 60 mg tablet (Brilinta) 60 mg PO BID 09/18/24 09/18/24 Previous Rx's ?Medication ?Instructions ?Recorded ezetimibe 10 mg tablet 10 mg PO DAILY #90 tabs 03/27/24 atorvastatin 40 mg tablet 40 mg PO DAILY #90 tabs 06/22/24 sgpukjxxlw-sgozmjktrvjwu-laqtvugb 1 cap PO .COMPLEX 30 days #10 caps 02/27/25 50 mg-300 mg-40 mg capsule Allergies Allergy/AdvReac Type Severity Reaction Status Date / Time No Known Allergies Allergy Verified 03/08/25 15:42 Review of Systems Review of Systems: All other systems are reviewed and are negative Constitutional: Reports as per HPI and Reports no additional constitutional complaints Eyes: Reports as per HPI and Reports no additional eye complaints Reports system reviewed and no additional complaints, except as documented Cardiovascular: Reports as per HPI and Reports no additional cardiovascular complaints Respiratory: Reports as per HPI and Reports no additional respiratory complaints Gastrointestinal: Reports as per HPI and Reports no additional gastrointestinal complaints Genitourinary: Reports no additional female genitourinary complaints Musculoskeletal: Reports no additional musculoskeletal complaints Skin/Breast: Reports system reviewed and no additional complaints, except as docu Psychiatric: Reports no additional psychiatric complaints Endocrine: Reports no additional endocrine complaints Hematologic/Lymphatic: Reports no additional hematologic/lymphatic complaints Allergic/Immunologic: Reports no additional allergic/immunologic complaints Reports system reviewed and no additional complaints, except as documented and Reports Abnormal speech present [facility] Past Medical History Medical History Aneurysm of left vertebral artery Pre-operative clearance Cerebral aneurysm Urinary incontinence Elevated cholesterol CAD (coronary artery disease) Abnormal stress ECG with treadmill Surgical History History of esophagogastroduodenoscopy (EGD) H/O colonoscopy (~12/06/23) Family History Family History Father No problems noted. Mother Stroke Brother Carotid stenosis Social History Social History Housing: House Alcohol intake: current Alcohol intake frequency: a few times a week Patient Tobacco Use Status: Former Tobacco user Years Smoked: 8 +/- Smoked in Last 30 Days: No Use of substances other than those prescribed or required for medical reasons: Yes Substance Use Type: Other Advance Directives: No Advance Directives Information Provided: Yes service: No Current occupational status: retired Cognitive needs: No Hearing needs: No Vision needs: Yes (rx glasses) Physical Exam Vital Signs: Vital Signs: Last Vital Signs Temp 98.1 F 03/08/25 20:17 Pulse 64 03/08/25 20:17 Resp 14 03/08/25 20:17 BP 150/79 H 03/08/25 20:17 Pulse Ox 100 03/08/25 20:17 O2 Del Method Room Air 03/08/25 20:17 BMI result Body Mass Index 23.3 Vital signs have been reviewed and appear to be correct. Blood pressure elevated. Heart rate normal. Respiratory rate normal. Temperature normal. Oxygen saturation normal. Appearance: Alert. Oriented X3. No acute distress. Head: Normal external exam. Normocephalic. Atraumatic. No [place] signs noted. No raccoon eyes noted Eyes: PERRLA. EOMI. Conjunctiva and sclera normal. Eyelids normal. ENT: TM's Normal. Pharynx normal. Uvula midline. Moist mucous membranes. No trismus noted. No drooling noted. No muffled voice noted. Neck: Normal inspection. Neck supple. FROM. No adenopathy. Thyroid Normal. No meningeal signs. No neck mass noted. CVS: Normal heart rate and rhythm. Heart sound normal. No murmurs noted. Pulses normal throughout. Respiratory: No respiratory distress. Painless inspiration. Breath sounds normal. No wheezes/rales/rhonchi noted. Chest nontender. No accessory muscle usage noted or decreased air movement noted. Abdomen: Soft and nontender. Bowel sounds normal in all 4 quadrants. No distention noted. No organomegaly noted. No visible injury noted. Back: No CVA tenderness. Full range of motion noted. Skin: Skin warm and dry. Normal skin color. Normal skin turgor. No rashes/lesions/lacerations noted. Extremities: No lower extremity edema. Extremities exhibit normal range of motion. Extremities nontender. Neuro: Oriented X 3. Cranial nerve exam: II-XII are grossly intact No motor deficit. No sensory deficit. Reflexes normal. Course Course Course Narrative: This is an RME: Additional HPI, ROS, PE not included below will be deferred to primary provider. RME assessment and note performed by: Cici Norris PA-C This is a 70-kqti-jrl-female, with a hx of aneurysm left vertebral artery repair with coil and stent, CAD, who presents to the ED with concerns of chest pain. Reports that she was at her breakfast counter when she developed heart burn like senstation that radiated into her chest and down her left arm. Plan: Labs, EKG, CXR, further ER eval needed Reevaluation(s) Reevaluation #1: Coiled vertebral artery aneurysm, patient has no neurological symptoms. Chest pain with unremarkable EKG and negative troponin x2. Elevated D-dimer with negative CT angio negative for pulmonary embolism. Time: 21:12 Medications Administered Discontinued Medications Generic Name Dose Route Start Last Admin Trade Name Freq PRN Reason Stop Dose Admin Al Hydroxide/Mg Hydroxide 30 ml 03/08/25 16:51 03/08/25 17:05 Magnesium Hydrox/Alum Hydrox 30 Ml Oral.Susp PO 03/08/25 16:52 30 ml ONCE ONE Administration Aspirin 81 mg 10/23/25 16:51 03/08/25 17:03 Aspirin 81 Mg Tab.Chew PO 03/08/25 16:52 81 mg ONCE ONE Administration Iohexol 100 ml 03/08/25 20:13 03/08/25 20:13 Iohexol 350 Mg/Ml 100 Ml Infus..Btl IV 03/08/25 20:14 70 ml ONCE ONE Administration Sucralfate 1 gm 03/08/25 16:51 03/08/25 17:03 Sucralfate 1 Gm Tablet PO 03/08/25 16:52 1 gm ONCE ONE Administration Medical Decision Making Differential Diagnosis Differential Diagnoses: The differential diagnosis associated with the presentation includes (Pulmonary embolism, ACS, pneumonia, pneumothorax, pleural effusion, chest wall pain, costochondritis.) Admission/Observation Consideration of admission/observation: Escalation of care including admission/observation considered Lab Data MDM Lab Attestation statement: I reviewed the patient's lab results. 03/08/25 16:07 03/08/25 16:07 Labs: Lab Results 03/08/25 03/08/25 03/08/25 Range/Units 16:07 16:52 19:03 WBC 6.7 (4.8-10.8) X10*3/uL RBC 4.06 L (4.20-5.50) X10*6/uL Hgb 12.4 (12.0-16.0) g/dl Hct 38.0 (37.0-47.0) % MCV 93.6 (80.0-98.0) fL MCH 30.5 (27.0-33.0) pg MCHC 32.6 (31.0-35.0) g/dl RDW 12.8 (11.0-16.0) % Plt Count 203 (160-400) X10*3/uL MPV 9.5 (9.4-12.3) fL Immature Gran % (Auto) 0.2 (0.0-0.4) % Neut % (Auto) 75.9 H (45-73) % Lymph % (Auto) 12.0 L (20-40) % Sterling % (Auto) 10.7 (2-11) % Eos % (Auto) 0.9 (0-4) % Baso % (Auto) 0.3 (0-2) % Lymph # (Auto) 0.8 L (1.2-4.9) X10*3/uL Sterling # (Auto) 0.7 (0.1-1.2) X10*3/uL Eos # (Auto) 0.1 (0.0-0.4) X10*3/uL Baso # (Auto) 0.0 (0.0-0.2) X10*3/uL Abs Immat Gran (auto) 0.01 (0.00-0.03) X10*3/uL Absolute Neuts (auto) 5.1 (2.0-8.3) x10*3/uL Absolute Nucleated RBC 0.000 (0.0-0.012) X10*3/uL Nucleated RBC % (auto) 0.0 (0.0-0.2) /100WBC D-Dimer High Sensitivty 439 NG/ML Sodium 141 (135-145) mmol/L Potassium 3.9 (3.3-5.1) mmol/L Chloride 108 (96-108) mmol/L Carbon Dioxide 26 (22-29) mmol/L Anion Gap 11 L (12-20) BUN 16 (9-16) mg/dL Creatinine 0.79 (0.5-1.4) mg/dL Estim Creat Clear Calc 65.3 Estimated GFR > 60 Random Glucose 114 (60-115) mg/dL Calcium 8.8 (8.4-10.2) mg/dL Magnesium 2.2 (1.6-2.6) mg/dL Total Bilirubin 0.3 (0.0-1.0) mg/dL Direct Bilirubin 0.1 (0.0-0.5) mg/dL AST 32 H (5-31) U/L ALT 35 H (0-31) U/L Alkaline Phosphatase 62 (39-117) U/L Troponin I High Sens < 2.7 < 2.7 (<3.5-17.0) ng/L Total Protein 6.9 (6.5-8.0) g/dL Albumin 4.3 (3.5-5.0) g/dL Lipase 46 (8-78) U/L Independent Interpretation I performed an independent interpretation of an: Plain X-Ray (Chest: No acute intrathoracic pathology.) and CT Scan (CT angio of the chest: No acute intrathoracic pathology.) Radiology Impression Discussion of test interpretation with radiology: I have reviewed the radiologist's reading. Discharge Plan Discharge Clinical Impression: Atypical chest pain Patient Disposition: Home, Self-Care Instructions: Chest Pain (ED) Prescriptions: No Action ezetimibe 10 mg tablet 10 mg PO DAILY Qty: 90 3RF atorvastatin 40 mg tablet 40 mg PO DAILY Qty: 90 0RF cholecalciferol (vitamin D3) 25 mcg (1,000 unit) capsule 25 mcg PO DAILY zinc 50 mg tablet 50 mg PO DAILY aspirin [Adult Aspirin Regimen] 81 mg tablet,delayed release (DR/EC) 81 mg PO DAILY Brilinta 60 mg tablet 60 mg PO BID ltuljnrxms-mdyxrhhtvnoar-npej 50-300-40 mg capsule 1 cap PO .COMPLEX 30 Days Qty: 10 3RF Rx Instructions: 1 cap orally as needed for headache; Referrals: Lester Osuna MD [Primary Care Provider, Internal Medicine] Print Language: French
[2025-03-08 16:17] LABS: MANUAL DIFF FLAG NO
[2025-03-08 16:19] LABS: Hematocrit 38.0 % (37.0-47.0); Hemoglobin 12.4 g/dl (12.0-16.0); Imm Gran Abs Auto 0.01 X10*3/uL (0.00-0.03); Imm Gran Pct Auto 0.2 % (0.0-0.4); Lymphocytes Absolute Auto 0.8 X10*3/uL (1.2-4.9); Mean Corpuscular HGB Conc 32.6 g/dl (31.0-35.0); Mean Corpuscular Hemoglobin 30.5 pg (27.0-33.0); Mean Corpuscular Volume 93.6 fL (80.0-98.0); NRBC Abs Auto 0.000 X10*3/uL (0.0-0.012); NRBC Pct Auto 0.0 /100WBC (0.0-0.2); Platelet Count 203 X10*3/uL (160-400); Red Blood Count 4.06 X10*6/uL (4.20-5.50); White Blood Count 6.7 X10*3/uL (4.8-10.8)
[2025-03-08 16:37] VITALS: BP 141/77; PULSE 62; RESP 10; TEMP 36.7; O2SAT 99
[2025-03-08 16:47] LABS: Alanine Aminotransferase 35 U/L (0-31); Albumin Level 4.3 g/dL (3.5-5.0); Alkaline Phosphatase 62 U/L (39-117); Anion Gap 11 (12-20); Aspartate Amino Transferase 32 U/L (5-31); Blood Urea Nitrogen 16 mg/dL (9-16); Calcium 8.8 mg/dL (8.4-10.2); Carbon Dioxide 26 mmol/L (22-29); Chloride 108 mmol/L (96-108); Creatinine Clr Calc Pharmacy 65.3; Estimated Glomerular Filt Rate > 60; Lipase 46 U/L (8-78); Magnesium 2.2 mg/dL (1.6-2.6); Potassium 3.9 mmol/L (3.3-5.1); Sodium 141 mmol/L (135-145); Total Protein 6.9 g/dL (6.5-8.0)
[2025-03-08 16:53] LABS: Troponin-I High Sensitivity < 2.7 ng/L (<3.5-17.0)
[2025-03-08] MEDS: Magnesium Hydrox/Alum Hydrox 30 ML ORAL.SUSP PO (17:05)
[2025-03-08 17:13] LABS: D Dimer High Sensitivity 439 NG/ML
[2025-03-08 18:26] VITALS: BP 162/73; PULSE 60; RESP 12; TEMP 36.7; O2SAT 98
--- OUTSIDE RECORDS SUMMARY | 2025-03-08 19:29 | XMS_ITS | Encounter Summary ---
Author Organization [facility] Address [address] [facility] [address] [place] [address] Phone Care Team Providers Care Derrick Boat Runner Name Role Phone Dieudonne Rios DO Primary Care Provider [phone] Dieudonne Rios DO Unavailable [phone] Ranjana Ivy MD Unavailable + [phone] Encounter Details Date Type Department Care Team (Late st Contact Info) Description 05/08/[address] [address] Social History Tobacco Use Types Packs/Day Years [...] Contact Info) Description 09/06/2024 Procedure Pass [address] [address] 03/30/2025 8:30 AM EST Appointment [address] [address] Lester Osuna MD [address] [place] [address] [address] documented as of this encounter Visit Diagnoses Not on filedocumented in this encounter Additional Health Concerns Infection Onset Date Last Indicated Resolved Time CoV-Exposed Comment:Recent close contact documented in the COVID-19 PCR/PRO order 06/22/2020 06/30/2020 07/17/2020 1:[address] documented as of this encounter Care Teams Derrick Boat Runner Relationship Specialty Start Date End Date Dieudonne Rios DO [address] [place] [address] PCP - General 03/01/17 Dieudonne Rios DO [address] [place] [address] Historical LMR Provider 03/07/17 Ranjana Ivy MD [address] [place] [address] Historical LMR Provider 03/07/17 2 documented as of this encounter Additional Source Comments The information contained in this document represents components of the legal health record. It is not the complete legal health record.[facility]
--- OUTSIDE RECORDS SUMMARY | 2025-03-08 19:29 | XMS_ITS | Encounter Summary ---
Author Organization [facility] Address [address] [facility] [address] [place] [address] Phone Care Team Providers Care Fish Straightener Name Role Phone Dieudonne Rios DO Primary Care Provider Dieudonne Rios DO Unavailable [phone] Ranjana Ivy MD Unavailable Encounter Details Date Type Department Care Team (Late st Contact Info) Description 04/21/2021 Procedure Pass [address] [address] Social History Tobacco Use Types Packs/Day Years [...] st Contact Info) Description 09/06/2024 Procedure Pass [address] [address] 03/30/2025 8:30 AM EST Appointment [address] [address] Lester Osuna MD [address] [place] [address] [address] documented as of this encounter Visit Diagnoses Not on filedocumented in this encounter Care Teams Fish Straightener Relationship Specialty Start Date End Date Dieudonne Rios DO [address] [place] [address] PCP - General 03/01/17 Dieudonne Rios DO [address] [place] [address] Historical LMR Provider 03/07/17 Ranjana Ivy MD [address] [place] [address] Historical LMR Provider 03/07/17 2 documented as of this encounter Additional Source Comments The information contained in this document represents components of the legal health record. It is not the complete legal health record.[facility]
--- OUTSIDE RECORDS SUMMARY | 2025-03-08 19:29 | XMS_ITS | Encounter Summary ---
Author Organization [facility] Address [address] [facility] [address] [place] [address] Phone Care Team Providers Care Sea Captain Name Role Phone Dieudonne Rios DO Primary Care Provider [phone] Dieudonne Rios DO Unavailable [phone] Encounter Details Date Type Department Care Team (Late st Contact Info) Description 06/30/2022 Procedure Pass [address] [address] Social History Tobacco Use Types Packs/Day Years [...] Contact Info) Description 09/06/2024 Procedure Pass [address] [address] 03/30/2025 8:30 AM EST Appointment [address] [address] Lester Osuna MD [address] [place] [address] [address] documented as of this encounter Visit Diagnoses Not on filedocumented in this encounter Care Teams Sea Captain Relationship Specialty Start Date End Date Dieudonne Rios DO [address] [place] [address] PCP - General 03/01/17 Dieudonne Rios DO [address] [place] [address] Historical LMR Provider 03/07/17 documented as of this encounter Additional Source Comments The information contained in this document represents components of the legal health record. It is not the complete legal health record.[facility]
--- OUTSIDE RECORDS SUMMARY | 2025-03-08 19:29 | XMS_ITS | Encounter Summary ---
Author Organization [facility] Address [address] [facility] [address] [place] [address] Phone Care Team Providers Care Product Marketing Specialist Name Role Phone Dieudonne Rios DO Primary Care Provider Dieudonne Rios DO Unavailable Ranjana Ivy MD Unavailable [phone] Encounter Details Date Type Department Care Team (Latest Contact Info) Description 04/21/2021 Transcribe Orders Virtual Department [address] [place] [address] Dieudonne Rios DO [address] [place] [address] Breast screening (Primary Dx) Social History Tobacco [...] Contact Info) Description 09/06/2024 Procedure Pass [address] [address] 03/30/2025 8:30 AM EST Appointment [address] [address] Lester Osuna MD [address] [place] [address] documented as of this encounter Results * [...] unspecified documented in this encounter Care Teams Product Marketing Specialist Relationship Specialty Start Date End Date Dieudonne Rios DO [address] [place] [address] PCP - General 03/01/17 Dieudonne Rios DO [address] [place] [address] Historical LMR Provider 03/07/17 Ranjana Ivy MD [address] [place] [address] Historical LMR Provider 03/07/17 2 documented as of this encounter Additional Source Comments The information contained in this document represents components of the legal health record. It is not the complete legal health record.[facility]
--- OUTSIDE RECORDS SUMMARY | 2025-03-08 19:29 | XMS_ITS | Encounter Summary ---
Author Organization [facility] Address [address] [facility] [address] [place] [address] Phone Care Team Providers Care Web Development Director Name Role Phone Dieudonne Rios DO Primary Care Provider Dieudonne Rios DO Unavailable Ranjana Ivy MD Unavailable [phone] Encounter Details Date Type Department Care Team (Late st Contact Info) Description 04/06/2019 Ancillary Orders Virtual Department [address] [place] [address] Dieudonne Rios DO [address] [place] [address] Breast screening Social History Tobacco Use Types [...] st Contact Info) Description 09/06/2024 Procedure Pass [address] [address] 03/30/2025 8:30 AM EST Appointment [address] [address] Lester Osuna MD [address] [place] [address] documented as of this encounter Results * [...] and compared with multiple prior studies, most amerthtp89/08/2018, with utilization of computer-aided detection. The breasts [...] documented as of this encounter Care Teams Web Development Director Relationship Specialty Start Date End Date Dieudonne Rios DO [address] [place] [address] PCP - General 03/01/17 Dieudonne Rios DO [address] [place] [address] Historical LMR Provider 03/07/17 Ranj[facility] [place] [address] Historical LMR Provider 03/07/17 2 documented as of this encounter Additional Source Comments The information contained in this document represents components of the legal health record. It is not the complete legal health record.[facility]
--- OUTSIDE RECORDS SUMMARY | 2025-03-08 19:29 | XMS_ITS | Encounter Summary ---
Author Organization [facility] Address [address] [place] [address] Care Team Providers Care Information And Referral Director Name Role Phone Cristobal Pereira MD Unavailable Unava ilable Lester Osuna MD Primary Care Provider + Call, Tatyana Matias RN Unavailable [phone] Encounter Details Date Type Department Care Team (Late st Contact Info) Description 10/03/2024 Prep for Surgery [id number] [address] [address] Vahe Casanova PA-C [address] [place] [address] Social History Tobacco Use Types Packs/Day Years Used Date Smoking Tobacco: Former Cigarettes 0.3 45.4 S tarted: 10/30/1979 Smokeless Tobacco: Never Alcohol [...] Description 03/21/2025 10:45 AM EST Hospital Encounter [facility] [address] [place] [phone] Richmond Adams MD [address] [address] Intracranial aneurysm 03/21/2025 10:45 AM EST - 03/21/2025 1:15 PM EST Surgery [facility] [address] [place] [address] Richmond Adams MD [address] [address] diagnostic cerebral angiogram documented as of this encounter Visit Diagnoses Not on filedocumented in this encounter Care Teams Information And Referral Director Relationship Specialty Start Date End Date Lester Osuna MD [address] [place] [address] PCP - General Internal Medicine 07/11/24 Cristobal Pereira MD Referring Provider Neurology 06/07/24 Call, Tatyana Matias RN [address] [place] [address] Registered Nurse Surgery, Neurosurgery 07/13/24 documented as of this encounter
--- OUTSIDE RECORDS SUMMARY | 2025-03-08 19:29 | XMS_ITS | Encounter Summary ---
Author Organization [facility] Address [address] [facility] [address] [place] [address] Phone Care Team Providers Care Production Department Supervisor Name Role Phone Dieudonne Rios DO Primary Care Provider [phone] Dieudonne Rios DO Unavailable [phone] Ranjana Ivy MD Unavailable [phone] Encounter Details Date Type Department Care Team (Late st Contact Info) Description 12/23/2017 Ancillary Orders Virtual Department [address] [place] [address] Dieudonne Rios DO [address] [place] [address] Breast screening Social History Tobacco Use Types [...] st Contact Info) Description 09/06/2024 Procedure Pass [address] [address] 03/30/2025 8:30 AM EST Appointment [address] [address] Lester Osuna MD [address] [place] [address] documented as of this encounter Results * [...] documented as of this encounter Care Teams Production Department Supervisor Relationship Specialty Start Date End Date Dieudonne Rios DO [address] [place] [address] PCP - General 03/01/17 Dieudonne Rios DO [address] [place] [address] Historical LMR Provider 03/07/17 Ranjana Ivy MD [address] [place] [address] Historical LMR Provider 03/07/17 2 documented as of this encounter Additional Source Comments The information contained in this document represents components of the legal health record. It is not the complete legal health record.[facility]
--- OUTSIDE RECORDS SUMMARY | 2025-03-08 19:29 | XMS_ITS | Encounter Summary ---
Author Organization [facility] Address [address] [facility] [address] [place] [address] Phone Care Team Providers Care World Geography Teacher Name Role Phone Dieudonne Rios DO Primary Care Provider [phone] Dieudonne Rios DO Unavailable [phone] Encounter Details Date Type Department Care Team (Late st Contact Info) Description 04/28/[address] [address] Social History Tobacco Use Types Packs/Day Years [...] st Contact Info) Description 09/06/2024 Procedure Pass [facility], [address] [address] 03/30/2025 8:30 AM EST Appointment [address] [address] Lester Osuna MD [address] [facility] [address] [address] documented as of this encounter Visit Diagnoses Not on filedocumented in this encounter Care Teams World Geography Teacher Relationship Specialty Start Date End Date Dieudonne Rios DO [address] [place] [address] PCP - General 03/01/17 Dieudonne Rios DO [address] [place] [address] Historical LMR Provider 03/07/17 documented as of this encounter Additional Source Comments The information contained in this document represents components of the legal health record. It is not the complete legal health record.[facility]
--- OUTSIDE RECORDS SUMMARY | 2025-03-08 19:29 | XMS_ITS | Encounter Summary ---
Author Organization [facility] Address [address] [facility] [address] [place] [address] Phone Care Team Providers Care Administrative Nursing Supervisor Name Role Phone Deiudonne Rios DO Primary Care Provider Dieudonne Rios DO Unavailable Ranjana Ivy MD Unavailable [phone] Encounter Details Date Type Department Care Team (Late st Contact Info) Description 05/08/2020 Ancillary Orders Virtual Department [address] [place] [address] Dieudonne Rios DO [address] [place] [address] Breast cancer screening by mammogram Social History [...] st Contact Info) Description 09/06/2024 Procedure Pass [address] [address] 03/30/2025 8:30 AM EST Appointment [address] [address] Lester Osuna MD [address] [place] [address] documented as of this encounter Results * [...] documented as of this encounter Care Teams Administrative Nursing Supervisor Relationship Specialty Start Date End Date Dieudonne Rios DO [address] [place] [address] PCP - General 03/01/17 Dieudonne Rios DO [address] [place] [address] Historical LMR Provider 03/07/17 Ranjana Ivy MD [address] [place] [address] Historical LMR Provider 03/07/17 2 documented as of this encounter Additional Source Comments The information contained in this document represents components of the legal health record. It is not the complete legal health record.[facility]
--- OUTSIDE RECORDS SUMMARY | 2025-03-08 19:29 | XMS_ITS | Encounter Summary ---
Author Organization [facility] Address [address] [place] [address] Care Team Providers Care Tissue Technician Name Role Phone Cristobal Pereira MD Unavailable Unava ilable Lester Osuna MD Primary Care Provider + Call, Tatyana Matias RN Unavailable [phone] Encounter Details Date Type Department Care Team (Late st Contact Info) Description 08/29/2024 Scanned Document [facility] NEUROSURGERY SCAN Neurosurgery, Scan Social History [...] Description 03/21/2025 10:45 AM EST Hospital Encounter [facility] Perioperative Surgical Services [address] [place] [phone] Richmond Adams MD [address] [address] Intracranial aneurysm 03/21/2025 10:45 AM EST - 03/21/2025 1:15 PM EST Surgery [facility]operative Surgical Services [address] [place] [address] Richmond Adams MD [address] [phone] diagnostic cerebral angiogram documented as of this encounter Visit Diagnoses Not on filedocumented in this encounter Care Teams Tissue Technician Relationship Specialty Start Date End Date Lester Osuna MD [address] [place] [address] PCP - General Internal Medicine 07/11/24 Cristobal Pereira MD Referring Provider Neurology 06/07/24 Augusto, Tatyana Matias RN [address] [place] [address] Registered Nurse Surgery, Neurosurgery 07/13/24 documented as of this encounter
--- OUTSIDE RECORDS SUMMARY | 2025-03-08 19:30 | XMS_ITS | Clinical Summary ---
Author Organization [facility] Address [address] [facility] [address] [place] [address] Phone Care Team Providers Care Assembly Mechanic Name Role Phone Dieudonne Rios DO Primary Care Provider Dieudonne Rios DO Unavailable [phone] Immunizations Immunization Administration Dates Next Due COVID-19 [...] Contact Info) Description 09/06/2024 Procedure Pass [address] [address] 03/30/2025 8:30 AM EST Appointment [address] [address] Lester Osuna MD [address] [address] Health Maintenance Due Date Last Done Comments [...] EST Routine general medical examination at a [facility] facility Constant low-grade dysphagia from [...] (04/21/2021 7:53 AM EST) HDL 50 mg/dL [facility] Comment: Interpretation <40 mg/dL: Low HDL cholesterol (major risk factor for CHD) Greater than or equal to 60 mg/dL: High HDL cholesterol ( negative risk factor for CHD) HDL - cholesterol is affected by a number of factors, e.g. smoking, excerise, hormones, sex and age. CHOLESTEROL 173 0 - 240 mg/dL [facility] TRIGLYCERIDES 127 30 - 160 mg/dL [facility] LDL 98 50 - 129 mg/dL [facility] Comment: LDL levels in terms of risk for coronary heart disease: <100 mg/dL: Optimal 100-129 mg/dL: Near or above optimal 130-159 mg/dL: Borderline high 160-189 mg/dL: High >190 mg/dL: Very High CARDIAC RISK RATIO 3.5 3.3 - 4.4 C [facility] Blood 04/21/2021 7:53 AM EST 04/21/2021 7:58 AM EST Dieudonne Rios DO LAB BLOOD ORDERABLES Final R esult [facility] [address] [place] [address] from Last 3 Months or Most Recently Relevant to Health Maintenance Insurance [facility] MEDEX SUPPLEMENT MEDICARE PART A & B [employer] MEDEX SUPPLEMENT MEDICARE PART A & B [employer] MEDEX SUPPLEMENT MEDICARE PART A & B [employer] MEDEX SUPPLEMENT MEDICARE PART A & B Member Subscriber Plan / Payer (Ef fective 2020-Present) Name:Mer Salinas Member ID:[id number] Relation to Subscriber:Self Name:Mer Salinas Subscriber ID:[id number] Payer ID:[id number] Group ID:Not on file Type:Medicare Address: [facility] Mobile Pulse [facility] [address] [place], [place] [id number] [employer] MEDEX SUPPLEMENT MEDICARE PART A & B [employer] MEDEX SUPPLEMENT MEDICARE PART A & B MEDICARE PART A & B [employer] MEDEX SUPPLEMENT MEDICARE PART A & B [employer] MEDEX SUPPLEMENT MEDICARE PART A & B Member Subscriber Plan / Payer ( fective 2020-) Name:Mer Salinas Member ID:[id number] Relation to Subscriber:Self Name:Mer Salinas Subscriber ID:[id number] Payer ID:[id number] Group ID:Not on file Type:Medicare Address: [facility] Mobile Pulse [facility]. [address] [place] [address] Advance Directives For more information, please contact: [phone] (9AM - 5PM [facility], Wednesday-Wednesday) Documents on File Type Date Recorded Patient [employer] Expl anation Healthcare Proxy 04/19/2023 2:48 PM Care Teams Assembly Mechanic Relationship Specialty Start Date End Date Dieudonne Rios DO [address] [place] [address] PCP - General 03/01/17 Dieudonne Rios DO [address] [place] [address] Historical LMR Provider 03/07/17 Additional Source Comments The information contained in this document represents components of the legal health record. It is not the complete legal health record.[facility]
--- OUTSIDE RECORDS SUMMARY | 2025-03-08 19:30 | XMS_ITS | Encounter Summary ---
Author Organization [facility] Address [address] [place] [address] Care Team Providers Care Senior Clinical Data Manager Name Role Phone Cristobal Pereira MD Unavailable Unava ilable Lester Osuna MD Primary Care Provider + Call, Tatyana Matias RN Unavailable [phone] Encounter Details Date Type Department Care Team (Late st Contact Info) Description 07/11/2024 Scanned Document [facility] NEUROSURGERY SCAN Neurosurgery, Scan Social History [facility] [address] [place] [address] Richmond Adams MD [address] [facility] [address] [place] [address] Intracranial aneurysm 03/21/2025 10:45 AM EST - 03/21/2025 1:15 PM EST Surgery [facility] Perioperative Surgical Services [address] [place] [address] Richmond Adams MD [address] [facility] [address] [place] [address] diagnostic cerebral angiogram documented as of this encounter Visit Diagnoses Not on filedocumented in this encounter Care Teams Senior Clinical Data Manager Relationship Specialty Start Date End Date Lester Osuna MD [address] [place] [address] PCP - General Internal Medicine 07/11/24 Cristobal Pereira MD Referring Provider Neurology 06/07/24 Augusto, Tatyana Matias RN [address] [place] [address] Registered Nurse Surgery, Neurosurgery 07/13/24 documented as of this encounter
--- OUTSIDE RECORDS SUMMARY | 2025-03-08 19:30 | XMS_ITS | Clinical Summary ---
Author Organization [facility] Address [address] [place] [address] Care Team Providers Care Track Inspector Name Role Phone Cristobal Pereira MD Unavailable Unava ilable Lester Osuna MD Primary Care Provider + Call, Tatyana Matias RN Unavailable [phone] Allergies No known active allergies Medications [...] Vertebral artery aneurysm 10/04/2024 Intracranial aneurysm 08/11/2024 Family History Medical History Relation Name Comments [...] 45.4 S tarted: 10/30/1979 Smokeless Tobacco: Never Tobacco [...] Description 03/21/2025 10:45 AM EST Hospital Encounter [facility] Perioperative Surgical Services [address] [place] [phone] Richmond Adams MD [address] [place], [place] [phone] Intracranial aneurysm 03/21/2025 10:45 AM EST - 03/21/2025 1:15 PM EST Surgery [facility] Perioperative Surgical Services [address] [place] [address] Richmond Adams MD [address] [place] [address] diagnostic cerebral angiogram Health Maintenance Due Date Last Done Comments Advance Care Planning 1955 Hepatitis C Virus Screening 1955 DTaP/Tdap/Td Vaccines (1 - Tdap) 12/07/1974 Mammogram 1995 Colonoscopy 12/07/2000 Pneumococcal Vaccines 50+ (1 of 1 - PCV) 12/07/2005 RSV Vaccine 50 years and older and Patients (1 - Risk 50-74 years 1-dose series) 12/07/2005 Zoster (Shingles) Vaccine (1 of 2) 12/07/2005 DXA Bone Density (Females,Ages 65 and older) 12/07/2020 COVID-19 Vaccine (3 - 2024-2 6 season) 2025 09/04/2020, 08/14/2020 Influenza Vaccine Completed 02/26/2025, 04/18/2015, 04/11/2013 Hepatitis B Vaccines Aged Out No long er eligible based on patient's age to complete this topic Medical Devices Implanted Type Area Sole Layer Device Identifier Shelf Expiration Date Model / Serial / Lot [id number] Coil Embolization Optm 9mm 30cm Complex Soft Disp Sterl Lf - [id number] Implanted:Qty: 1 on 10/05/2024 by Richmond Adams MD at [facility] Coil Left: Brain [employer] 08/09/2029 [id number] / / [id number] Device Embolization 20mm 4.75mm Pipeline Flex Brd Soft Dist - [id number] Implanted:Qty: 1 on 10/04/2024 by Richmond Adams MD at [facility] Stent Left: Brain [employer] [id number] 02/15/2027 [id number]- 20 / / [id number] Device Closure Angsl Vip Bondek-Plus 6fr .035in 70cm Implanted:Qty: 1 on 10/04/2024 by Richmond Adams MD at [facility] Left: Brain [employer] DIV TERU [id number] / / Description:ENTERED FOR REBECCA GING PURPOSES UNDER IMPLANTS. ENTERED UNDER SUPPLIES FOR INVENTORY TO DECREMENT. Guide[employer] Vascular Graham 14 Hydrophilic 30 Cm L46 Cm 10 Implanted:Qty: 2 on 10/04/2024 by Richmond Adams MD at [facility] Left: Brain UNKNOWN [id number] / / Description:ENTERED FOR REBECCA [employer]ING PURPOSES UNDER IMPLANTS. ENTERED UNDER SUPPLIES FOR INVENTORY TO DECREMENT. Sheath Intro Bllst .1-.106in .088in 80cm Long Soft Coil Dist Implanted:Qty: 1 on 10/04/2024 by Richmond Adams MD at [facility] Left: Brain [employer] [id number] / / Description:ENTERED FOR REBECCA GING PURPOSES UNDER IMPLANTS. ENTERED UNDER SUPPLIES FOR INVENTORY TO DECREMENT. Microcatheter Crbrvasc 15cm .036-.04in .027in Phenom Rnd Implanted:Qty: 1 on 10/04/2024 by Richmond Adams MD at [facility] Left: Brain [employer] [id number] / / Description:ENTERED FOR REBECCA GING PURPOSES UNDER IMPLANTS. ENTERED UNDER SUPPLIES FOR INVENTORY TO DECREMENT. Microcatheter Infusion Headway Duo 1.6-2.1fr 156cm Straight Implanted:Qty: 1 on 10/04/2024 by Richmond Adams MD at [facility] Left: Brain UNKNOWN [id number] / / Description:ENTERED FOR REBECCA GING PURPOSES UNDER IMPLANTS. ENTERED UNDER SUPPLIES FOR INVENTORY TO DECREMENT. Catheter Aspiration Cereglide 71 .082in .071in 115cm Plmr Implanted:Qty: 1 on 10/04/2024 by Richmond Adams MD at [facility] Left: Brain Dr. Tariff CAR [id number] / / Description:ENTERED FOR REBECCA GING PURPOSES UNDER IMPLANTS. ENTERED UNDER SUPPLIES FOR INVENTORY TO DECREMENT. Procedures Procedure Name Priority Date/Time Associated Diagnosis Comments ENDOVASCULAR PROCEDURE Routine 02/09/2025 1:27 PM EDT Intracranial aneurysm from Last 3 Months Insurance [facility] MEDICARE PART A & B Advance Directives * Full Code (Latest Code Status on File) Date Activated Date Inactivated Comments 10/04/2024 11:48 AM * Full Code Date Activated Date Inactivated Comments 10/04/2024 7:58 AM 10/04/2024 11:48 AM * Full Code Date Activated Date Inactivated Comments 08/11/2024 9:19 AM 10/04/2024 7:15 AM Care Teams Track Inspector Relationship Specialty Start Date End Date Lester Osuna MD [address] [place] [address] PCP - General Internal Medicine 07/11/24 Cristobal Pereira MD Referring Provider Neurology 06/07/24 Augusto, Tatyana Matias RN [address] [place] [address] Registered Nurse Surgery, Neurosurgery 07/13/24
[2025-03-08 19:38] LABS: Troponin-I High Sensitivity < 2.7 ng/L (<3.5-17.0)
[2025-03-08] MEDS: iohexoL 350 MG/ML 100 ML INFUS..BTL IV (20:13)
[2025-03-08 20:17] VITALS: BP 150/79; PULSE 64; RESP 14; TEMP 36.7; O2SAT 100
[2025-03-08 21:33] VITALS: BP 161/80; PULSE 66; RESP 17; TEMP 36.7; O2SAT 99
== END 2025-03-08 21:37 | disposition home or self-care (01) ==
PROVIDERS: Physician Assistant Medical; Emergency Provider Emergency Medicine; PCP Internal Medicine
DX: R07.89 Other chest pain (principal); M79.602 Pain in left arm; R10.13 Epigastric pain; Z79.899 Other long term (current) drug therapy; Z87.891 Personal history of nicotine dependence
CPT/HCPCS: 36415; 71046; 71275; 80048; 80076; 83690; 83735; 84484; 85025; 85379; 93005; 99285; Q9967

== ENCOUNTER → 2025-03-08 15:36 | Outpatient (BNV) | payer MEDICARE, SELFPAY | PROVIDERS: Emergency Provider Emergency Medicine; PCP Internal Medicine; Visit Provider Internal Medicine Cardiovascular Disease | DX: R07.9 Chest pain, unspecified (principal) | CPT/HCPCS: 93010 ==

== ENCOUNTER → 2025-03-08 15:46 | Outpatient (BNV) | payer MEDICARE, SELFPAY | PROVIDERS: Emergency Provider Emergency Medicine; PCP Internal Medicine; Visit Provider Radiology Diagnostic Radiology | DX: R07.9 Chest pain, unspecified (principal); R79.89 Other specified abnormal findings of blood chemistry | CPT/HCPCS: 71046; 71275 ==